=== PATIENT | male | born 1960 | race Caucasian/White ===

== ENCOUNTER → 2017-02-18 | Outpatient (REF) | payer MEDICARE ==
[2017-02-18 20:30] LABS: ALBUMIN 3.5 GM/DL (3.2-5.2); ALBUMIN/GLOBULIN RATIO 1.21 (1.00-1.93); ALKALINE PHOSPHATASE 94 U/L (45-117); ALT/SGPT 35 U/L (12-78); ANION GAP 6 MEQ/L (8-16); AST/SGOT 13 U/L (15-37); BILIRUBIN,TOTAL 0.3 MG/DL (0.2-1.0); BLOOD UREA NITROGEN 23 MG/DL (7-18); CALCIUM LEVEL 8.6 MG/DL (8.5-10.1); CARBON DIOXIDE LEVEL 31 MEQ/L (21-32); CHLORIDE LEVEL 103 MEQ/L (98-107); CREATININE FOR GFR 1.12 MG/DL (0.70-1.30); GLOMERULAR FILTRATION RATE > 60.0 (>56); GLUCOSE, FASTING 187 MG/DL (70-105); POTASSIUM SERUM 4.1 MEQ/L (3.5-5.1); SODIUM LEVEL 140 MEQ/L (136-145); TOTAL PROTEIN 6.4 GM/DL (6.4-8.2)
== END ==
LOC: M LABWUC 19:58
PROVIDERS: ATTEND Nurse Practitioner Family
DX: E11.9 Type 2 diabetes mellitus without complications (principal)

== ENCOUNTER → 2017-09-04 | Outpatient (CLI) | payer MEDICARE ==
[2017-09-04 10:44] LABS: ALBUMIN 3.4 GM/DL (3.2-5.2); ALBUMIN/GLOBULIN RATIO 1.26 (1.00-1.93); ALKALINE PHOSPHATASE 96 U/L (45-117); ALT/SGPT 42 U/L (12-78); ANION GAP 7 MEQ/L (8-16); AST/SGOT 16 U/L (7-37); BILIRUBIN,TOTAL 0.5 MG/DL (0.2-1.0); BLOOD UREA NITROGEN 15 MG/DL (7-18); CALCIUM LEVEL 8.4 MG/DL (8.5-10.1); CARBON DIOXIDE LEVEL 33 MEQ/L (21-32); CHLORIDE LEVEL 99 MEQ/L (98-107); CHOLESTEROL LEVEL 168 MG/DL (<200); GLOMERULAR FILTRATION RATE > 60.0 (>56); GLUCOSE, FASTING 231 MG/DL (70-105); POTASSIUM SERUM 4.3 MEQ/L (3.5-5.1); SODIUM LEVEL 139 MEQ/L (136-145); TOTAL PROTEIN 6.1 GM/DL (6.4-8.2); TRIGLYCERIDES LEVEL 129 MG/DL (<150)
== END ==
LOC: M WUC 08:16
PROVIDERS: ATTEND Nurse Practitioner Family
DX: E11.9 Type 2 diabetes mellitus without complications (principal); I10 Essential (primary) hypertension

== ENCOUNTER 2018-05-10 06:17 | Inpatient (IN) | payer MEDICARE ==
[2018-05-10] MEDS: niCARdipine IV 40 MG in APPROPRIATE DILUENT 1 EA IV ×4 (06:51→23:10)
[2018-05-10 06:57] LABS: BASO % 0.4 % (0.0-1.0); EOS # 0.3 10^3/uL (0.0-0.50); HEMOGLOBIN 15.2 g/dl (13.5-17.5); IMMATURE GRANULOCYTE % 0.6 % (0-3.0); LYMPH # 1.3 10^3/uL (1.5-4.5); LYMPH % 12.6 % (24.0-44.0); MEAN CORPUSCULAR HEMOGLOBIN 26.1 pg (27.0-33.0); MEAN CORPUSCULAR VOLUME 78.9 fl (80.0-96.0); MONO # 0.7 10^3/uL (0.0-0.8); MONO % 7.1 % (0.0-5.0); NEUTROPHILS # 7.7 10^3/uL (1.8-7.7); NEUTROPHILS % 76.3 % (36.0-66.0); PLATELET COUNT, AUTOMATED 200 10^3/uL (150-450); RED BLOOD COUNT 5.83 10^6/uL (4.30-6.10); RED CELL DISTRIBUTION WIDTH 13.7 % (11.5-14.5); WHITE BLOOD COUNT 10.1 10^3/uL (4.0-10.0)
[2018-05-10 07:16] LABS: PROTHROMBIN TIME 12.2 SECONDS (12.1-14.4)
[2018-05-10 07:17] LABS: PARTIAL THROMBOPLASTIN TIME 28.2 SECONDS (25.4-37.6)
[2018-05-10 07:19] LABS: ANION GAP 8 MEQ/L (8-16); BLOOD UREA NITROGEN 28 MG/DL (7-18); CALCIUM LEVEL 9.3 MG/DL (8.5-10.1); CARBON DIOXIDE LEVEL 29 MEQ/L (21-32); CHLORIDE LEVEL 102 MEQ/L (98-107); CK-MB VALUE MASS 2.1 NG/ML (<3.6); CPK CREATINE PHOSPHOKINASE 109 U/L (39-308); CREATININE FOR GFR 1.17 MG/DL (0.70-1.30); GLOMERULAR FILTRATION RATE > 60.0 (>56); GLUCOSE, FASTING 282 MG/DL (70-100); MB/CK RELATIVE INDEX 1.92 (< OR =4); POTASSIUM SERUM 4.1 MEQ/L (3.5-5.1); SODIUM LEVEL 139 MEQ/L (136-145); TROPONIN I < 0.02 NG/ML (< 0.10)
[2018-05-10] MEDS ORDERED: ISOVUE-370 76% 100ML VIAL (Q9967) As Ordered (07:20)
[2018-05-10 11:35] LABS: COLLAGEN EPINEPHRINE 213 SECONDS (74-162)
[2018-05-10 11:39] LABS: COLLAGEN ADP 84 SECONDS (56-103)
[2018-05-10] MEDS: HumaLOG INSULIN (NovoLOG) PER UNIT SC ×2 (12:00→17:42)
[2018-05-10] MEDS ORDERED: ONDANSETRON 4MG/2ML VIAL (J2405) IV (12:00)
[2018-05-10] MEDS ORDERED: ACETAMINOPHEN TAB 650MG DOSE (2X325MG) PO (12:00)
[2018-05-10] MEDS ORDERED: GLUCAGON FOR INJ 1 MG VIAL (J1610) SC (12:15)
[2018-05-10] MEDS ORDERED: GLUCOSE 4 GM CHEW TABLET PO (12:15)
[2018-05-10] MEDS ORDERED: DEXTROSE 50% 50 ML SYRINGE IV (12:15)
[2018-05-10 13:16] LABS: CHOLESTEROL LEVEL 252 MG/DL (<200); HDL CHOLESTEROL 37 MG/DL (>40); LDL CHOLESTEROL 163.6 MG/DL (<100); NON-HDL-C 215 MG/DL; TRIGLYCERIDES LEVEL 257 MG/DL (<150)
[2018-05-10 14:18] LABS: ESTIMATED AVERAGE GLUCOSE 237 MG/DL (60-110); HEMOGLOBIN A1c 9.9 %
[2018-05-10] MEDS: ATORVASTATIN 20 MG TAB PO (16:10)
[2018-05-10] MEDS: CLOPIDOGREL 75 MG TAB PO (16:10)
[2018-05-10 17:38] LABS: BEDSIDE GLUCOSE 239 MG/DL (70-105)
[2018-05-10] MEDS: amLODIPine 10 MG TAB PO (17:43)
[2018-05-10 23:28] LABS: BEDSIDE GLUCOSE 195 MG/DL (70-105)
[2018-05-11 05:05] LABS: HEMATOCRIT 47.1 % (42.0-52.0); HEMOGLOBIN 15.3 g/dl (13.5-17.5); MEAN CORPUSCULAR HEMOGLOBIN 25.9 pg (27.0-33.0); MEAN CORPUSCULAR HGB CONC 32.5 g/dl (32.0-36.5); MEAN CORPUSCULAR VOLUME 79.7 fl (80.0-96.0); PLATELET COUNT, AUTOMATED 205 10^3/uL (150-450); RED BLOOD COUNT 5.91 10^6/uL (4.30-6.10); WHITE BLOOD COUNT 9.4 10^3/uL (4.0-10.0)
[2018-05-11 05:22] LABS: ALBUMIN 3.2 GM/DL (3.2-5.2); ALKALINE PHOSPHATASE 106 U/L (45-117); ALT/SGPT 23 U/L (12-78); ANION GAP 8 MEQ/L (8-16); AST/SGOT 16 U/L (7-37); BILIRUBIN,TOTAL 0.6 MG/DL (0.2-1.0); BLOOD UREA NITROGEN 15 MG/DL (7-18); CALCIUM LEVEL 8.4 MG/DL (8.5-10.1); CARBON DIOXIDE LEVEL 29 MEQ/L (21-32); CHLORIDE LEVEL 102 MEQ/L (98-107); CREATININE FOR GFR 0.88 MG/DL (0.70-1.30); GLOMERULAR FILTRATION RATE > 60.0 (>56); GLUCOSE, FASTING 232 MG/DL (70-100); MAGNESIUM LEVEL 1.7 MG/DL (1.8-2.4); POTASSIUM SERUM 3.7 MEQ/L (3.5-5.1); SODIUM LEVEL 139 MEQ/L (136-145); TOTAL PROTEIN 7.2 GM/DL (6.4-8.2)
[2018-05-11] MEDS: HumaLOG INSULIN (NovoLOG) PER UNIT SC ×5 (06:11→21:10)
[2018-05-11] MEDS: niCARdipine IV 40 MG in APPROPRIATE DILUENT 1 EA IV (08:33)
[2018-05-11] MEDS: amLODIPine 10 MG TAB PO (08:54)
[2018-05-11] MEDS: ATORVASTATIN 20 MG TAB PO (08:54)
[2018-05-11] MEDS: VALSARTAN 40MG TABLET (DIOVAN) PO (08:54)
[2018-05-11] MEDS: CLOPIDOGREL 75 MG TAB PO (08:54)
[2018-05-11 12:48] LABS: BEDSIDE GLUCOSE 222 MG/DL (70-105)
[2018-05-11] MEDS: hydrALAZINE INJ 20 MG/ML VIAL IV ×2 (12:59→17:17)
[2018-05-11 17:11] LABS: BEDSIDE GLUCOSE 183 MG/DL (70-105)
[2018-05-11 21:06] LABS: BEDSIDE GLUCOSE 297 MG/DL (70-105)
[2018-05-11] MEDS: LEVEMIR (INSULIN DETEMIR) 1 UNITS/0.01ML SC (21:09)
[2018-05-11] MEDS: NICOTINE 14 MG/24 HR TRANSDERMAL TD (21:10)
[2018-05-12] MEDS: hydrALAZINE INJ 20 MG/ML VIAL IV ×3 (00:16→12:10)
[2018-05-12 05:50] LABS: ALBUMIN 3.5 GM/DL (3.2-5.2); ALBUMIN/GLOBULIN RATIO 0.83 (1.00-1.93); ALKALINE PHOSPHATASE 114 U/L (45-117); ALT/SGPT 24 U/L (12-78); ANION GAP 8 MEQ/L (8-16); AST/SGOT 20 U/L (7-37); BILIRUBIN,TOTAL 0.6 MG/DL (0.2-1.0); BLOOD UREA NITROGEN 12 MG/DL (7-18); CALCIUM LEVEL 9.1 MG/DL (8.5-10.1); CARBON DIOXIDE LEVEL 28 MEQ/L (21-32); CHLORIDE LEVEL 103 MEQ/L (98-107); CREATININE FOR GFR 1.04 MG/DL (0.70-1.30); GLOMERULAR FILTRATION RATE > 60.0 (>56); GLUCOSE, FASTING 225 MG/DL (70-100); SODIUM LEVEL 139 MEQ/L (136-145); TOTAL PROTEIN 7.7 GM/DL (6.4-8.2)
[2018-05-12 06:15] LABS: HEMATOCRIT 50.6 % (42.0-52.0); HEMOGLOBIN 16.1 g/dl (13.5-17.5); MEAN CORPUSCULAR HEMOGLOBIN 25.6 pg (27.0-33.0); MEAN CORPUSCULAR HGB CONC 31.8 g/dl (32.0-36.5); MEAN CORPUSCULAR VOLUME 80.6 fl (80.0-96.0); PLATELET COUNT, AUTOMATED 243 10^3/uL (150-450); RED BLOOD COUNT 6.28 10^6/uL (4.30-6.10); RED CELL DISTRIBUTION WIDTH 14.7 % (11.5-14.5); WHITE BLOOD COUNT 9.7 10^3/uL (4.0-10.0)
[2018-05-12] MEDS: HumaLOG INSULIN (NovoLOG) PER UNIT SC ×4 (08:00→21:00)
[2018-05-12] MEDS: ATORVASTATIN 20 MG TAB PO (08:49)
[2018-05-12] MEDS: CLOPIDOGREL 75 MG TAB PO (08:49)
[2018-05-12] MEDS: amLODIPine 10 MG TAB PO (08:50)
[2018-05-12] MEDS: ASPIRIN 81 MG ENTERIC TAB PO (08:50)
[2018-05-12] MEDS: VALSARTAN 40MG TABLET (DIOVAN) PO (11:44)
[2018-05-12 11:53] LABS: BEDSIDE GLUCOSE 215 MG/DL (70-105)
[2018-05-12] MEDS: LABETALOL HCL 100 MG/20 ML VIAL IV (12:15)
[2018-05-12 18:02] LABS: BEDSIDE GLUCOSE 271 MG/DL (70-105)
[2018-05-12] MEDS: **hydrALAZINE HCL** 25 MG TAB PO (18:10)
[2018-05-12 20:56] LABS: BEDSIDE GLUCOSE 194 MG/DL (70-105)
[2018-05-12] MEDS: LEVEMIR (INSULIN DETEMIR) 1 UNITS/0.01ML SC (22:00)
[2018-05-12] MEDS: NICOTINE 14 MG/24 HR TRANSDERMAL TD (22:00)
[2018-05-12] MEDS: LABETALOL 100 MG TAB PO (22:01)
[2018-05-13] MEDS: **hydrALAZINE HCL** 25 MG TAB PO ×4 (01:01→17:57)
[2018-05-13] MEDS: LABETALOL 100 MG TAB PO ×3 (06:03→21:28)
[2018-05-13 06:30] LABS: HEMATOCRIT 46.3 % (42.0-52.0); HEMOGLOBIN 14.6 g/dl (13.5-17.5); MEAN CORPUSCULAR HEMOGLOBIN 25.6 pg (27.0-33.0); MEAN CORPUSCULAR HGB CONC 31.5 g/dl (32.0-36.5); MEAN CORPUSCULAR VOLUME 81.2 fl (80.0-96.0); PLATELET COUNT, AUTOMATED 202 10^3/uL (150-450); RED CELL DISTRIBUTION WIDTH 14.7 % (11.5-14.5); WHITE BLOOD COUNT 8.8 10^3/uL (4.0-10.0)
[2018-05-13 06:44] LABS: ALBUMIN/GLOBULIN RATIO 0.86 (1.00-1.93); ALKALINE PHOSPHATASE 102 U/L (45-117); ALT/SGPT 21 U/L (12-78); ANION GAP 7 MEQ/L (8-16); AST/SGOT 13 U/L (7-37); BILIRUBIN,TOTAL 0.5 MG/DL (0.2-1.0); BLOOD UREA NITROGEN 11 MG/DL (7-18); CALCIUM LEVEL 8.6 MG/DL (8.5-10.1); CARBON DIOXIDE LEVEL 30 MEQ/L (21-32); CHLORIDE LEVEL 103 MEQ/L (98-107); CREATININE FOR GFR 0.91 MG/DL (0.70-1.30); GLOMERULAR FILTRATION RATE > 60.0 (>56); GLUCOSE, FASTING 204 MG/DL (70-100); POTASSIUM SERUM 3.8 MEQ/L (3.5-5.1); SODIUM LEVEL 140 MEQ/L (136-145); TOTAL PROTEIN 6.5 GM/DL (6.4-8.2)
[2018-05-13] MEDS: HumaLOG INSULIN (NovoLOG) PER UNIT SC ×4 (08:19→21:00)
[2018-05-13] MEDS: ASPIRIN 81 MG ENTERIC TAB PO (08:45)
[2018-05-13] MEDS: CLOPIDOGREL 75 MG TAB PO (08:45)
[2018-05-13] MEDS: amLODIPine 10 MG TAB PO (08:45)
[2018-05-13] MEDS: VALSARTAN 40MG TABLET (DIOVAN) PO ×2 (08:46→14:51)
[2018-05-13] MEDS: ATORVASTATIN 20 MG TAB PO (08:46)
[2018-05-13 11:30] LABS: BEDSIDE GLUCOSE 236 MG/DL (70-105)
[2018-05-13 17:15] LABS: BEDSIDE GLUCOSE 185 MG/DL (70-105)
[2018-05-13 21:21] LABS: BEDSIDE GLUCOSE 161 MG/DL (70-105)
[2018-05-13] MEDS: NICOTINE 14 MG/24 HR TRANSDERMAL TD (21:28)
[2018-05-13] MEDS: LEVEMIR (INSULIN DETEMIR) 1 UNITS/0.01ML SC (21:29)
[2018-05-14] MEDS: **hydrALAZINE HCL** 25 MG TAB PO ×4 (01:08→19:39)
[2018-05-14 05:47] LABS: HEMATOCRIT 46.4 % (42.0-52.0); HEMOGLOBIN 14.8 g/dl (13.5-17.5); MEAN CORPUSCULAR HEMOGLOBIN 25.7 pg (27.0-33.0); MEAN CORPUSCULAR HGB CONC 31.9 g/dl (32.0-36.5); MEAN CORPUSCULAR VOLUME 80.7 fl (80.0-96.0); PLATELET COUNT, AUTOMATED 189 10^3/uL (150-450); RED BLOOD COUNT 5.75 10^6/uL (4.30-6.10); RED CELL DISTRIBUTION WIDTH 14.9 % (11.5-14.5); WHITE BLOOD COUNT 7.5 10^3/uL (4.0-10.0)
[2018-05-14] MEDS: LABETALOL 100 MG TAB PO ×3 (05:56→21:47)
[2018-05-14 06:09] LABS: ALBUMIN 3.2 GM/DL (3.2-5.2); ALKALINE PHOSPHATASE 110 U/L (45-117); ALT/SGPT 28 U/L (12-78); ANION GAP 6 MEQ/L (8-16); AST/SGOT 19 U/L (7-37); BILIRUBIN,TOTAL 0.7 MG/DL (0.2-1.0); BLOOD UREA NITROGEN 11 MG/DL (7-18); CALCIUM LEVEL 8.8 MG/DL (8.5-10.1); CARBON DIOXIDE LEVEL 31 MEQ/L (21-32); CHLORIDE LEVEL 103 MEQ/L (98-107); CREATININE FOR GFR 0.93 MG/DL (0.70-1.30); GLOMERULAR FILTRATION RATE > 60.0 (>56); GLUCOSE, FASTING 189 MG/DL (70-100); POTASSIUM SERUM 3.9 MEQ/L (3.5-5.1); SODIUM LEVEL 140 MEQ/L (136-145); TOTAL PROTEIN 7.2 GM/DL (6.4-8.2)
[2018-05-14] MEDS: CLOPIDOGREL 75 MG TAB PO (08:27)
[2018-05-14] MEDS: ASPIRIN 81 MG ENTERIC TAB PO (08:27)
[2018-05-14] MEDS: ATORVASTATIN 20 MG TAB PO (08:27)
[2018-05-14] MEDS: HumaLOG INSULIN (NovoLOG) PER UNIT SC ×4 (08:28→21:39)
[2018-05-14] MEDS: amLODIPine 10 MG TAB PO (08:28)
[2018-05-14] MEDS: VALSARTAN 80 MG TAB (DIOVAN) PO (08:29)
[2018-05-14 11:41] LABS: BEDSIDE GLUCOSE 206 MG/DL (70-105)
[2018-05-14 16:44] LABS: BEDSIDE GLUCOSE 238 MG/DL (70-105)
[2018-05-14 21:27] LABS: BEDSIDE GLUCOSE 202 MG/DL (70-105)
[2018-05-14] MEDS: HEPARIN SOD (PORCINE) 5000 UNITS/ML VIAL SQ (21:46)
[2018-05-14] MEDS: NICOTINE 14 MG/24 HR TRANSDERMAL TD (21:47)
[2018-05-14] MEDS: LEVEMIR (INSULIN DETEMIR) 1 UNITS/0.01ML SC (21:47)
[2018-05-14] MEDS ORDERED: PILL CRUSHER/CUTTER 1 EACH XX (22:30)
[2018-05-15] MEDS: **hydrALAZINE HCL** 25 MG TAB PO ×3 (04:42→19:38)
[2018-05-15 05:21] LABS: HEMATOCRIT 46.9 % (42.0-52.0); HEMOGLOBIN 14.7 g/dl (13.5-17.5); MEAN CORPUSCULAR HEMOGLOBIN 25.7 pg (27.0-33.0); MEAN CORPUSCULAR HGB CONC 31.3 g/dl (32.0-36.5); MEAN CORPUSCULAR VOLUME 81.8 fl (80.0-96.0); PLATELET COUNT, AUTOMATED 178 10^3/uL (150-450); RED BLOOD COUNT 5.73 10^6/uL (4.30-6.10); RED CELL DISTRIBUTION WIDTH 14.6 % (11.5-14.5); WHITE BLOOD COUNT 6.8 10^3/uL (4.0-10.0)
[2018-05-15 05:40] LABS: ALBUMIN 3.2 GM/DL (3.2-5.2); ALBUMIN/GLOBULIN RATIO 0.84 (1.00-1.93); ALKALINE PHOSPHATASE 104 U/L (45-117); ALT/SGPT 29 U/L (12-78); ANION GAP 7 MEQ/L (8-16); AST/SGOT 18 U/L (7-37); BILIRUBIN,TOTAL 0.6 MG/DL (0.2-1.0); BLOOD UREA NITROGEN 14 MG/DL (7-18); CALCIUM LEVEL 8.9 MG/DL (8.5-10.1); CARBON DIOXIDE LEVEL 31 MEQ/L (21-32); CHLORIDE LEVEL 102 MEQ/L (98-107); GLOMERULAR FILTRATION RATE > 60.0 (>56); GLUCOSE, FASTING 177 MG/DL (70-100); MAGNESIUM LEVEL 1.9 MG/DL (1.8-2.4); POTASSIUM SERUM 3.7 MEQ/L (3.5-5.1); SODIUM LEVEL 140 MEQ/L (136-145)
[2018-05-15] MEDS: HEPARIN SOD (PORCINE) 5000 UNITS/ML VIAL SQ ×3 (06:32→21:12)
[2018-05-15] MEDS: LABETALOL 100 MG TAB PO ×3 (06:32→21:12)
[2018-05-15] MEDS: HumaLOG INSULIN (NovoLOG) PER UNIT SC ×4 (09:06→21:04)
[2018-05-15] MEDS: ASPIRIN 81 MG ENTERIC TAB PO (09:06)
[2018-05-15] MEDS: ATORVASTATIN 20 MG TAB PO (09:07)
[2018-05-15] MEDS: CLOPIDOGREL 75 MG TAB PO (09:07)
[2018-05-15] MEDS: VALSARTAN 80 MG TAB (DIOVAN) PO (09:08)
[2018-05-15] MEDS: amLODIPine 10 MG TAB PO (09:08)
[2018-05-15 11:43] LABS: BEDSIDE GLUCOSE 195 MG/DL (70-105)
[2018-05-15 17:19] LABS: BEDSIDE GLUCOSE 186 MG/DL (70-105)
[2018-05-15 21:12] LABS: BEDSIDE GLUCOSE 220 MG/DL (70-105)
[2018-05-15] MEDS: LEVEMIR (INSULIN DETEMIR) 1 UNITS/0.01ML SC (21:13)
[2018-05-15] MEDS: NICOTINE 14 MG/24 HR TRANSDERMAL TD (21:13)
[2018-05-16] MEDS: **hydrALAZINE HCL** 25 MG TAB PO ×3 (04:07→21:08)
[2018-05-16 06:01] LABS: HEMATOCRIT 44.3 % (42.0-52.0); MEAN CORPUSCULAR HGB CONC 31.6 g/dl (32.0-36.5); MEAN CORPUSCULAR VOLUME 82.3 fl (80.0-96.0); PLATELET COUNT, AUTOMATED 176 10^3/uL (150-450); RED BLOOD COUNT 5.38 10^6/uL (4.30-6.10); RED CELL DISTRIBUTION WIDTH 14.6 % (11.5-14.5); WHITE BLOOD COUNT 6.3 10^3/uL (4.0-10.0)
[2018-05-16] MEDS: LABETALOL 100 MG TAB PO ×3 (06:07→23:05)
[2018-05-16] MEDS: HEPARIN SOD (PORCINE) 5000 UNITS/ML VIAL SQ ×3 (06:08→23:05)
[2018-05-16 06:27] LABS: ALBUMIN 3.1 GM/DL (3.2-5.2); ALBUMIN/GLOBULIN RATIO 0.84 (1.00-1.93); ALKALINE PHOSPHATASE 102 U/L (45-117); ALT/SGPT 32 U/L (12-78); ANION GAP 7 MEQ/L (8-16); AST/SGOT 21 U/L (7-37); BILIRUBIN,TOTAL 0.5 MG/DL (0.2-1.0); BLOOD UREA NITROGEN 16 MG/DL (7-18); CARBON DIOXIDE LEVEL 32 MEQ/L (21-32); CHLORIDE LEVEL 103 MEQ/L (98-107); CREATININE FOR GFR 1.02 MG/DL (0.70-1.30); GLOMERULAR FILTRATION RATE > 60.0 (>56); GLUCOSE, FASTING 164 MG/DL (70-100); POTASSIUM SERUM 3.9 MEQ/L (3.5-5.1); SODIUM LEVEL 142 MEQ/L (136-145); TOTAL PROTEIN 6.8 GM/DL (6.4-8.2)
[2018-05-16] MEDS: amLODIPine 10 MG TAB PO (08:28)
[2018-05-16] MEDS: VALSARTAN 80 MG TAB (DIOVAN) PO (08:28)
[2018-05-16] MEDS: ASPIRIN 81 MG ENTERIC TAB PO (08:28)
[2018-05-16] MEDS: ATORVASTATIN 20 MG TAB PO (08:28)
[2018-05-16] MEDS: CLOPIDOGREL 75 MG TAB PO (08:28)
[2018-05-16] MEDS: HumaLOG INSULIN (NovoLOG) PER UNIT SC ×4 (08:30→21:08)
[2018-05-16 11:57] LABS: BEDSIDE GLUCOSE 142 MG/DL (70-105)
[2018-05-16 18:02] LABS: BEDSIDE GLUCOSE 163 MG/DL (70-105)
[2018-05-16 20:56] LABS: BEDSIDE GLUCOSE 145 MG/DL (70-105)
[2018-05-16] MEDS: LEVEMIR (INSULIN DETEMIR) 1 UNITS/0.01ML SC (21:09)
[2018-05-16] MEDS: NICOTINE 14 MG/24 HR TRANSDERMAL TD (21:10)
[2018-05-17] MEDS: **hydrALAZINE HCL** 25 MG TAB PO ×2 (04:24→12:24)
[2018-05-17 05:37] LABS: HEMATOCRIT 41.4 % (42.0-52.0); HEMOGLOBIN 13.5 g/dl (13.5-17.5); MEAN CORPUSCULAR HEMOGLOBIN 26.3 pg (27.0-33.0); MEAN CORPUSCULAR HGB CONC 32.6 g/dl (32.0-36.5); MEAN CORPUSCULAR VOLUME 80.5 fl (80.0-96.0); PLATELET COUNT, AUTOMATED 181 10^3/uL (150-450); RED BLOOD COUNT 5.14 10^6/uL (4.30-6.10); RED CELL DISTRIBUTION WIDTH 14.6 % (11.5-14.5); WHITE BLOOD COUNT 5.8 10^3/uL (4.0-10.0)
[2018-05-17 05:55] LABS: ALBUMIN 2.9 GM/DL (3.2-5.2); ALBUMIN/GLOBULIN RATIO 0.83 (1.00-1.93); ALKALINE PHOSPHATASE 95 U/L (45-117); ALT/SGPT 35 U/L (12-78); ANION GAP 6 MEQ/L (8-16); AST/SGOT 29 U/L (7-37); BILIRUBIN,TOTAL 0.5 MG/DL (0.2-1.0); BLOOD UREA NITROGEN 12 MG/DL (7-18); CALCIUM LEVEL 8.5 MG/DL (8.5-10.1); CARBON DIOXIDE LEVEL 29 MEQ/L (21-32); CHLORIDE LEVEL 106 MEQ/L (98-107); CREATININE FOR GFR 0.84 MG/DL (0.70-1.30); GLOMERULAR FILTRATION RATE > 60.0 (>56); GLUCOSE, FASTING 141 MG/DL (70-100); MAGNESIUM LEVEL 1.9 MG/DL (1.8-2.4); POTASSIUM SERUM 3.6 MEQ/L (3.5-5.1); SODIUM LEVEL 141 MEQ/L (136-145); TOTAL PROTEIN 6.4 GM/DL (6.4-8.2)
[2018-05-17] MEDS: LABETALOL 100 MG TAB PO (05:56)
[2018-05-17] MEDS: HEPARIN SOD (PORCINE) 5000 UNITS/ML VIAL SQ (05:57)
[2018-05-17 09:14] LABS: BEDSIDE GLUCOSE 154 MG/DL (70-105)
[2018-05-17] MEDS: ATORVASTATIN 20 MG TAB PO (09:52)
[2018-05-17] MEDS: VALSARTAN 80 MG TAB (DIOVAN) PO (09:52)
[2018-05-17] MEDS: ASPIRIN 81 MG ENTERIC TAB PO (09:53)
[2018-05-17] MEDS: CLOPIDOGREL 75 MG TAB PO (09:53)
[2018-05-17] MEDS: amLODIPine 10 MG TAB PO (09:53)
[2018-05-17] MEDS: HumaLOG INSULIN (NovoLOG) PER UNIT SC ×2 (09:54→12:24)
[2018-05-17 11:53] LABS: BEDSIDE GLUCOSE 154 MG/DL (70-105)
== END 2018-05-17 13:47 | DRG 65 ==
LOC: M MSPAV 05-12 15:11 → M ED 06:17 → M ED INP 11:56 → M ICU 15:18
DX: I63.9 Cerebral infarction, unspecified (principal); I69.351 Hemiplegia and hemiparesis following cerebral infarction affecting right dominant side; Z68.41 Body mass index [BMI] 40.0-44.9, adult; I65.02 Occlusion and stenosis of left vertebral artery; E66.01 Morbid (severe) obesity due to excess calories; I10 Essential (primary) hypertension; E11.9 Type 2 diabetes mellitus without complications; M10.9 Gout, unspecified; Z79.82 Long term (current) use of aspirin; Z79.899 Other long term (current) drug therapy; Z87.891 Personal history of nicotine dependence; E78.5 Hyperlipidemia, unspecified

== ENCOUNTER 2018-05-17 13:50 | Inpatient (IN) | payer MEDICARE ==
[~2018-05-17 13:50] MED LIST: ACETAMINOPHEN TAB 650MG DOSE (2X325MG) PO; BISACODYL 10 MG SUPP PR; FLEET ENEMA PR; MAALOX 30 ML SUSP *UDC PO; MIRALAX *UNIT DOSE* 17GM PACKET PO; MOM 30ML SUSPENSION UDC PO; ONDANSETRON 4 MG TAB (S0181) PO; ONDANSETRON 4MG/2ML VIAL (J2405) IM; SIMETHICONE 80 MG CHEW TAB PO
[2018-05-17] MEDS: LABETALOL 100 MG TAB PO ×3 (14:00→21:51)
[2018-05-17] MEDS ORDERED: DEXTROSE 50% 50 ML SYRINGE IV (14:45)
[2018-05-17] MEDS ORDERED: GLUCOSE 4 GM CHEW TABLET PO (14:45)
[2018-05-17] MEDS ORDERED: GLUCAGON FOR INJ 1 MG VIAL (J1610) SC (14:45)
[2018-05-17] MEDS ORDERED: PILL CRUSHER/CUTTER 1 EACH XX (15:15)
[2018-05-17] MEDS: HEPARIN SOD (PORCINE) 5000 UNITS/ML VIAL SQ ×2 (15:59→21:50)
[2018-05-17 16:48] LABS: BEDSIDE GLUCOSE 144 MG/DL (70-105)
[2018-05-17] MEDS: HumaLOG INSULIN (NovoLOG) PER UNIT SC ×2 (17:27→21:00)
[2018-05-17 21:43] LABS: BEDSIDE GLUCOSE 150 MG/DL (70-105)
[2018-05-17] MEDS: **hydrALAZINE** 50 MG TAB PO (21:51)
[2018-05-17] MEDS: NICOTINE 7 MG/24 HR TRANSDERMAL TD (21:52)
[2018-05-17] MEDS: LEVEMIR (INSULIN DETEMIR) 1 UNITS/0.01ML SC (21:52)
[2018-05-18 06:46] LABS: BEDSIDE GLUCOSE 142 MG/DL (70-105)
[2018-05-18 06:46] LABS: BASO % 0.4 % (0.0-1.0); EOS # 0.3 10^3/uL (0.0-0.50); EOS % 5.3 % (0.0-3.0); HEMATOCRIT 44.5 % (42.0-52.0); HEMOGLOBIN 14.3 g/dl (13.5-17.5); IMMATURE GRANULOCYTE % 0.7 % (0-3.0); LYMPH # 1.4 10^3/uL (1.5-4.5); LYMPH % 24.5 % (24.0-44.0); MEAN CORPUSCULAR HEMOGLOBIN 25.9 pg (27.0-33.0); MEAN CORPUSCULAR HGB CONC 32.1 g/dl (32.0-36.5); MEAN CORPUSCULAR VOLUME 80.5 fl (80.0-96.0); MONO # 0.7 10^3/uL (0.0-0.8); MONO % 12.9 % (0.0-5.0); NEUTROPHILS # 3.2 10^3/uL (1.8-7.7); NEUTROPHILS % 56.2 % (36.0-66.0); PLATELET COUNT, AUTOMATED 176 10^3/uL (150-450); RED BLOOD COUNT 5.53 10^6/uL (4.30-6.10); RED CELL DISTRIBUTION WIDTH 14.3 % (11.5-14.5); WHITE BLOOD COUNT 5.7 10^3/uL (4.0-10.0)
[2018-05-18] MEDS: HEPARIN SOD (PORCINE) 5000 UNITS/ML VIAL SQ ×3 (06:47→21:44)
[2018-05-18] MEDS: LABETALOL 100 MG TAB PO ×3 (06:48→21:47)
[2018-05-18] MEDS: **hydrALAZINE** 50 MG TAB PO ×3 (06:48→21:46)
[2018-05-18 07:09] LABS: ALBUMIN 3.1 GM/DL (3.2-5.2); ALBUMIN/GLOBULIN RATIO 0.86 (1.00-1.93); ALKALINE PHOSPHATASE 101 U/L (45-117); ALT/SGPT 74 U/L (12-78); ANION GAP 9 MEQ/L (8-16); AST/SGOT 75 U/L (7-37); BILIRUBIN,TOTAL 0.6 MG/DL (0.2-1.0); BLOOD UREA NITROGEN 13 MG/DL (7-18); CALCIUM LEVEL 8.8 MG/DL (8.5-10.1); CARBON DIOXIDE LEVEL 30 MEQ/L (21-32); CHLORIDE LEVEL 103 MEQ/L (98-107); CREATININE FOR GFR 0.86 MG/DL (0.70-1.30); GLOMERULAR FILTRATION RATE > 60.0 (>56); GLUCOSE, FASTING 145 MG/DL (70-100); POTASSIUM SERUM 3.5 MEQ/L (3.5-5.1); SODIUM LEVEL 142 MEQ/L (136-145); TOTAL PROTEIN 6.7 GM/DL (6.4-8.2)
[2018-05-18] MEDS: VALSARTAN 80 MG TAB (DIOVAN) PO (09:31)
[2018-05-18] MEDS: ASPIRIN 81 MG ENTERIC TAB PO (09:32)
[2018-05-18] MEDS: amLODIPine 10 MG TAB PO (09:32)
[2018-05-18] MEDS: ATORVASTATIN 20 MG TAB PO (09:32)
[2018-05-18] MEDS: HumaLOG INSULIN (NovoLOG) PER UNIT SC ×4 (09:32→21:00)
[2018-05-18] MEDS: CLOPIDOGREL 75 MG TAB PO (09:32)
[2018-05-18] MEDS: BISACODYL 5 MG TAB PO (12:32)
[2018-05-18] MEDS: MIRALAX *UNIT DOSE* 17GM PACKET PO (12:32)
[2018-05-18 12:33] LABS: BEDSIDE GLUCOSE 177 MG/DL (70-105)
[2018-05-18] MEDS: FLUoxetine 20 MG CAP PO (12:35)
[2018-05-18] MEDS: cloNIDine 0.1 MG TAB PO ×2 (13:54→21:46)
[2018-05-18 16:42] LABS: BEDSIDE GLUCOSE 164 MG/DL (70-105)
[2018-05-18 19:37] LABS: BEDSIDE GLUCOSE 137 MG/DL (70-105)
[2018-05-18] MEDS: SENNA 8.6 MG TAB (SENOKOT) PO (21:44)
[2018-05-18] MEDS: NICOTINE 7 MG/24 HR TRANSDERMAL TD (21:44)
[2018-05-18] MEDS: LEVEMIR (INSULIN DETEMIR) 1 UNITS/0.01ML SC (21:44)
[2018-05-19 05:49] LABS: BEDSIDE GLUCOSE 137 MG/DL (70-105)
[2018-05-19] MEDS: LABETALOL 100 MG TAB PO ×3 (05:53→21:04)
[2018-05-19] MEDS: HEPARIN SOD (PORCINE) 5000 UNITS/ML VIAL SQ ×3 (05:53→21:06)
[2018-05-19] MEDS: **hydrALAZINE** 50 MG TAB PO ×3 (05:53→21:02)
[2018-05-19] MEDS: FLUoxetine 20 MG CAP PO (08:48)
[2018-05-19] MEDS: CLOPIDOGREL 75 MG TAB PO (08:48)
[2018-05-19] MEDS: ATORVASTATIN 20 MG TAB PO (08:48)
[2018-05-19] MEDS: HumaLOG INSULIN (NovoLOG) PER UNIT SC ×4 (08:48→21:27)
[2018-05-19] MEDS: amLODIPine 10 MG TAB PO (08:49)
[2018-05-19] MEDS: ASPIRIN 81 MG ENTERIC TAB PO (08:49)
[2018-05-19] MEDS: VALSARTAN 80 MG TAB (DIOVAN) PO (08:49)
[2018-05-19] MEDS: cloNIDine 0.1 MG TAB PO ×2 (08:49→21:00)
[2018-05-19] MEDS: MIRALAX *UNIT DOSE* 17GM PACKET PO (08:50)
[2018-05-19 12:06] LABS: BEDSIDE GLUCOSE 151 MG/DL (70-105)
[2018-05-19 16:49] LABS: BEDSIDE GLUCOSE 170 MG/DL (70-105)
[2018-05-19 20:50] LABS: BEDSIDE GLUCOSE 151 MG/DL (70-105)
[2018-05-19] MEDS: SENNA 8.6 MG TAB (SENOKOT) PO (21:00)
[2018-05-19] MEDS: LEVEMIR (INSULIN DETEMIR) 1 UNITS/0.01ML SC (21:08)
[2018-05-20 05:38] LABS: BEDSIDE GLUCOSE 117 MG/DL (70-105)
[2018-05-20] MEDS: **hydrALAZINE** 50 MG TAB PO ×3 (05:43→21:27)
[2018-05-20] MEDS: LABETALOL 100 MG TAB PO ×3 (05:43→21:27)
[2018-05-20] MEDS: HEPARIN SOD (PORCINE) 5000 UNITS/ML VIAL SQ ×3 (05:44→21:28)
[2018-05-20 06:39] LABS: HEMATOCRIT 40.6 % (42.0-52.0); HEMOGLOBIN 13.3 g/dl (13.5-17.5); MEAN CORPUSCULAR HEMOGLOBIN 26.4 pg (27.0-33.0); MEAN CORPUSCULAR HGB CONC 32.8 g/dl (32.0-36.5); MEAN CORPUSCULAR VOLUME 80.6 fl (80.0-96.0); PLATELET COUNT, AUTOMATED 167 10^3/uL (150-450); RED BLOOD COUNT 5.04 10^6/uL (4.30-6.10); RED CELL DISTRIBUTION WIDTH 14.6 % (11.5-14.5)
[2018-05-20] MEDS: HumaLOG INSULIN (NovoLOG) PER UNIT SC ×4 (09:54→21:00)
[2018-05-20] MEDS: CLOPIDOGREL 75 MG TAB PO (09:55)
[2018-05-20] MEDS: amLODIPine 10 MG TAB PO (09:55)
[2018-05-20] MEDS: FLUoxetine 20 MG CAP PO (09:55)
[2018-05-20] MEDS: ATORVASTATIN 20 MG TAB PO (09:55)
[2018-05-20] MEDS: cloNIDine 0.1 MG TAB PO ×2 (09:55→21:27)
[2018-05-20] MEDS: VALSARTAN 80 MG TAB (DIOVAN) PO (09:55)
[2018-05-20] MEDS: ASPIRIN 81 MG ENTERIC TAB PO (09:55)
[2018-05-20] MEDS: MIRALAX *UNIT DOSE* 17GM PACKET PO (09:57)
[2018-05-20 11:59] LABS: BEDSIDE GLUCOSE 189 MG/DL (70-105)
[2018-05-20 16:33] LABS: BEDSIDE GLUCOSE 213 MG/DL (70-105)
[2018-05-20 19:58] LABS: BEDSIDE GLUCOSE 182 MG/DL (70-105)
[2018-05-20] MEDS: SENNA 8.6 MG TAB (SENOKOT) PO (21:00)
[2018-05-20] MEDS: LEVEMIR (INSULIN DETEMIR) 1 UNITS/0.01ML SC (21:28)
[2018-05-21 06:18] LABS: BEDSIDE GLUCOSE 138 MG/DL (70-105)
[2018-05-21] MEDS: **hydrALAZINE** 50 MG TAB PO ×3 (06:22→21:55)
[2018-05-21] MEDS: LABETALOL 100 MG TAB PO ×3 (06:22→21:56)
[2018-05-21] MEDS: HEPARIN SOD (PORCINE) 5000 UNITS/ML VIAL SQ ×3 (06:23→21:56)
[2018-05-21] MEDS: amLODIPine 10 MG TAB PO (08:26)
[2018-05-21] MEDS: VALSARTAN 80 MG TAB (DIOVAN) PO (08:26)
[2018-05-21] MEDS: ATORVASTATIN 20 MG TAB PO (08:26)
[2018-05-21] MEDS: ASPIRIN 81 MG ENTERIC TAB PO (08:26)
[2018-05-21] MEDS: cloNIDine 0.1 MG TAB PO ×2 (08:26→21:56)
[2018-05-21] MEDS: CLOPIDOGREL 75 MG TAB PO (08:26)
[2018-05-21] MEDS: FLUoxetine 20 MG CAP PO (08:26)
[2018-05-21] MEDS: HumaLOG INSULIN (NovoLOG) PER UNIT SC ×4 (08:27→21:00)
[2018-05-21] MEDS: MIRALAX *UNIT DOSE* 17GM PACKET PO (08:34)
[2018-05-21 12:19] LABS: BEDSIDE GLUCOSE 175 MG/DL (70-105)
[2018-05-21 16:37] LABS: BEDSIDE GLUCOSE 151 MG/DL (70-105)
[2018-05-21] MEDS: SENNA 8.6 MG TAB (SENOKOT) PO (21:55)
[2018-05-21 21:56] LABS: BEDSIDE GLUCOSE 145 MG/DL (70-105)
[2018-05-21] MEDS: LEVEMIR (INSULIN DETEMIR) 1 UNITS/0.01ML SC (21:57)
[2018-05-22] MEDS: HEPARIN SOD (PORCINE) 5000 UNITS/ML VIAL SQ ×3 (06:30→21:26)
[2018-05-22] MEDS: **hydrALAZINE** 50 MG TAB PO ×3 (06:30→21:24)
[2018-05-22] MEDS: LABETALOL 100 MG TAB PO ×3 (06:30→21:25)
[2018-05-22 06:31] LABS: BEDSIDE GLUCOSE 151 MG/DL (70-105)
[2018-05-22] MEDS: cloNIDine 0.1 MG TAB PO ×2 (08:19→21:25)
[2018-05-22] MEDS: amLODIPine 10 MG TAB PO (08:20)
[2018-05-22] MEDS: FLUoxetine 20 MG CAP PO (08:20)
[2018-05-22] MEDS: CLOPIDOGREL 75 MG TAB PO (08:20)
[2018-05-22] MEDS: VALSARTAN 80 MG TAB (DIOVAN) PO (08:20)
[2018-05-22] MEDS: ATORVASTATIN 20 MG TAB PO (08:20)
[2018-05-22] MEDS: ASPIRIN 81 MG ENTERIC TAB PO (08:20)
[2018-05-22] MEDS: HumaLOG INSULIN (NovoLOG) PER UNIT SC ×4 (08:21→21:00)
[2018-05-22] MEDS: MIRALAX *UNIT DOSE* 17GM PACKET PO (08:21)
[2018-05-22 11:43] LABS: BEDSIDE GLUCOSE 139 MG/DL (70-105)
[2018-05-22 16:08] LABS: BEDSIDE GLUCOSE 138 MG/DL (70-105)
[2018-05-22] MEDS: SENNA 8.6 MG TAB (SENOKOT) PO (21:00)
[2018-05-22 21:26] LABS: BEDSIDE GLUCOSE 141 MG/DL (70-105)
[2018-05-22] MEDS: LEVEMIR (INSULIN DETEMIR) 1 UNITS/0.01ML SC (21:26)
[2018-05-23 06:37] LABS: BEDSIDE GLUCOSE 120 MG/DL (70-105)
[2018-05-23] MEDS: HEPARIN SOD (PORCINE) 5000 UNITS/ML VIAL SQ ×3 (06:37→21:39)
[2018-05-23] MEDS: LABETALOL 100 MG TAB PO ×3 (06:37→21:41)
[2018-05-23] MEDS: **hydrALAZINE** 50 MG TAB PO ×3 (06:37→21:40)
[2018-05-23] MEDS: HumaLOG INSULIN (NovoLOG) PER UNIT SC ×4 (08:36→21:40)
[2018-05-23] MEDS: cloNIDine 0.1 MG TAB PO ×2 (08:36→21:40)
[2018-05-23] MEDS: CLOPIDOGREL 75 MG TAB PO (08:37)
[2018-05-23] MEDS: FLUoxetine 20 MG CAP PO (08:37)
[2018-05-23] MEDS: MIRALAX *UNIT DOSE* 17GM PACKET PO (08:37)
[2018-05-23] MEDS: ATORVASTATIN 20 MG TAB PO (08:37)
[2018-05-23] MEDS: amLODIPine 10 MG TAB PO (08:37)
[2018-05-23] MEDS: VALSARTAN 80 MG TAB (DIOVAN) PO (08:37)
[2018-05-23] MEDS: ASPIRIN 81 MG ENTERIC TAB PO (08:37)
[2018-05-23 11:41] LABS: BEDSIDE GLUCOSE 153 MG/DL (70-105)
[2018-05-23 16:29] LABS: BEDSIDE GLUCOSE 179 MG/DL (70-105)
[2018-05-23 20:45] LABS: BEDSIDE GLUCOSE 280 MG/DL (70-105)
[2018-05-23] MEDS: LEVEMIR (INSULIN DETEMIR) 1 UNITS/0.01ML SC (21:39)
[2018-05-23] MEDS: SENNA 8.6 MG TAB (SENOKOT) PO (21:40)
[2018-05-24] MEDS: **hydrALAZINE** 50 MG TAB PO ×3 (06:05→21:15)
[2018-05-24] MEDS: LABETALOL 100 MG TAB PO ×3 (06:05→21:15)
[2018-05-24] MEDS: HEPARIN SOD (PORCINE) 5000 UNITS/ML VIAL SQ ×3 (06:05→21:16)
[2018-05-24 06:18] LABS: BEDSIDE GLUCOSE 146 MG/DL (70-105)
[2018-05-24 07:40] LABS: BASO % 0.3 % (0.0-1.0); EOS # 0.3 10^3/uL (0.0-0.50); EOS % 4.9 % (0.0-3.0); HEMATOCRIT 41.1 % (42.0-52.0); HEMOGLOBIN 13.1 g/dl (13.5-17.5); IMMATURE GRANULOCYTE % 0.3 % (0-3.0); LYMPH # 1.1 10^3/uL (1.5-4.5); LYMPH % 16.7 % (24.0-44.0); MEAN CORPUSCULAR HEMOGLOBIN 26.4 pg (27.0-33.0); MEAN CORPUSCULAR HGB CONC 31.9 g/dl (32.0-36.5); MEAN CORPUSCULAR VOLUME 82.7 fl (80.0-96.0); MONO % 14.1 % (0.0-5.0); NEUTROPHILS # 4.3 10^3/uL (1.8-7.7); NEUTROPHILS % 63.7 % (36.0-66.0); PLATELET COUNT, AUTOMATED 161 10^3/uL (150-450); RED BLOOD COUNT 4.97 10^6/uL (4.30-6.10); RED CELL DISTRIBUTION WIDTH 14.6 % (11.5-14.5); WHITE BLOOD COUNT 6.8 10^3/uL (4.0-10.0)
[2018-05-24 08:00] LABS: ANION GAP 6 MEQ/L (8-16); BLOOD UREA NITROGEN 14 MG/DL (7-18); CALCIUM LEVEL 8.7 MG/DL (8.5-10.1); CARBON DIOXIDE LEVEL 31 MEQ/L (21-32); CHLORIDE LEVEL 106 MEQ/L (98-107); CREATININE FOR GFR 0.82 MG/DL (0.70-1.30); GLOMERULAR FILTRATION RATE > 60.0 (>56); GLUCOSE, FASTING 156 MG/DL (70-100); MAGNESIUM LEVEL 1.8 MG/DL (1.8-2.4); SODIUM LEVEL 143 MEQ/L (136-145)
[2018-05-24] MEDS: HumaLOG INSULIN (NovoLOG) PER UNIT SC ×5 (08:14→21:00)
[2018-05-24] MEDS: CLOPIDOGREL 75 MG TAB PO (08:15)
[2018-05-24] MEDS: VALSARTAN 80 MG TAB (DIOVAN) PO (08:15)
[2018-05-24] MEDS: ATORVASTATIN 20 MG TAB PO (08:15)
[2018-05-24] MEDS: ASPIRIN 81 MG ENTERIC TAB PO (08:15)
[2018-05-24] MEDS: cloNIDine 0.1 MG TAB PO (08:16)
[2018-05-24] MEDS: MIRALAX *UNIT DOSE* 17GM PACKET PO (08:16)
[2018-05-24] MEDS: FLUoxetine 20 MG CAP PO (08:16)
[2018-05-24] MEDS: amLODIPine 10 MG TAB PO (08:16)
[2018-05-24 12:03] LABS: BEDSIDE GLUCOSE 150 MG/DL (70-105)
[2018-05-24 16:34] LABS: BEDSIDE GLUCOSE 143 MG/DL (70-105)
[2018-05-24 20:29] LABS: BEDSIDE GLUCOSE 131 MG/DL (70-105)
[2018-05-24] MEDS: SENNA 8.6 MG TAB (SENOKOT) PO (21:00)
[2018-05-24] MEDS: cloNIDine 0.2 MG TAB PO (21:15)
[2018-05-24] MEDS: LEVEMIR (INSULIN DETEMIR) 1 UNITS/0.01ML SC (21:16)
[2018-05-25] MEDS: HEPARIN SOD (PORCINE) 5000 UNITS/ML VIAL SQ ×3 (06:47→21:19)
[2018-05-25] MEDS: LABETALOL 100 MG TAB PO ×3 (06:47→21:21)
[2018-05-25] MEDS: **hydrALAZINE** 50 MG TAB PO ×3 (06:48→21:20)
[2018-05-25 06:57] LABS: BEDSIDE GLUCOSE 130 MG/DL (70-105)
[2018-05-25] MEDS: FLUoxetine 20 MG CAP PO (08:31)
[2018-05-25] MEDS: ASPIRIN 81 MG ENTERIC TAB PO (08:31)
[2018-05-25] MEDS: cloNIDine 0.2 MG TAB PO ×2 (08:31→21:20)
[2018-05-25] MEDS: amLODIPine 10 MG TAB PO (08:31)
[2018-05-25] MEDS: CLOPIDOGREL 75 MG TAB PO (08:31)
[2018-05-25] MEDS: HumaLOG INSULIN (NovoLOG) PER UNIT SC ×4 (08:32→21:00)
[2018-05-25] MEDS: VALSARTAN 80 MG TAB (DIOVAN) PO (08:32)
[2018-05-25] MEDS: MIRALAX *UNIT DOSE* 17GM PACKET PO (08:32)
[2018-05-25] MEDS: ATORVASTATIN 20 MG TAB PO (08:32)
[2018-05-25 11:34] LABS: BEDSIDE GLUCOSE 156 MG/DL (70-105)
[2018-05-25 16:17] LABS: BEDSIDE GLUCOSE 180 MG/DL (70-105)
[2018-05-25 19:43] LABS: BEDSIDE GLUCOSE 166 MG/DL (70-105)
[2018-05-25] MEDS: SENNA 8.6 MG TAB (SENOKOT) PO (21:00)
[2018-05-25] MEDS: LEVEMIR (INSULIN DETEMIR) 1 UNITS/0.01ML SC (21:20)
[2018-05-26] MEDS: **hydrALAZINE** 50 MG TAB PO ×3 (06:05→21:31)
[2018-05-26] MEDS: LABETALOL 100 MG TAB PO ×2 (06:05→21:31)
[2018-05-26] MEDS: HEPARIN SOD (PORCINE) 5000 UNITS/ML VIAL SQ ×3 (06:06→21:29)
[2018-05-26 06:25] LABS: BEDSIDE GLUCOSE 149 MG/DL (70-105)
[2018-05-26 06:36] LABS: HEMATOCRIT 40.6 % (42.0-52.0); HEMOGLOBIN 12.8 g/dl (13.5-17.5); MEAN CORPUSCULAR HGB CONC 31.5 g/dl (32.0-36.5); MEAN CORPUSCULAR VOLUME 82.4 fl (80.0-96.0); PLATELET COUNT, AUTOMATED 167 10^3/uL (150-450); RED BLOOD COUNT 4.93 10^6/uL (4.30-6.10); RED CELL DISTRIBUTION WIDTH 14.6 % (11.5-14.5); WHITE BLOOD COUNT 7.4 10^3/uL (4.0-10.0)
[2018-05-26] MEDS: HumaLOG INSULIN (NovoLOG) PER UNIT SC ×4 (07:30→21:00)
[2018-05-26] MEDS: MIRALAX *UNIT DOSE* 17GM PACKET PO ×2 (09:00)
[2018-05-26] MEDS: cloNIDine 0.2 MG TAB PO ×2 (09:48→21:31)
[2018-05-26] MEDS: FLUoxetine 20 MG CAP PO (09:48)
[2018-05-26] MEDS: amLODIPine 10 MG TAB PO (09:48)
[2018-05-26] MEDS: ASPIRIN 81 MG ENTERIC TAB PO (09:48)
[2018-05-26] MEDS: CLOPIDOGREL 75 MG TAB PO (09:49)
[2018-05-26] MEDS: VALSARTAN 80 MG TAB (DIOVAN) PO (09:49)
[2018-05-26] MEDS: ATORVASTATIN 20 MG TAB PO (09:49)
[2018-05-26 11:24] LABS: BEDSIDE GLUCOSE 225 MG/DL (70-105)
[2018-05-26 17:16] LABS: BEDSIDE GLUCOSE 149 MG/DL (70-105)
[2018-05-26 20:11] LABS: BEDSIDE GLUCOSE 134 MG/DL (70-105)
[2018-05-26] MEDS: SENNA 8.6 MG TAB (SENOKOT) PO (21:00)
[2018-05-26] MEDS: LEVEMIR (INSULIN DETEMIR) 1 UNITS/0.01ML SC (21:30)
[2018-05-27] MEDS: HEPARIN SOD (PORCINE) 5000 UNITS/ML VIAL SQ ×3 (06:08→22:00)
[2018-05-27] MEDS: **hydrALAZINE** 50 MG TAB PO ×4 (06:08→22:01)
[2018-05-27 06:19] LABS: BEDSIDE GLUCOSE 154 MG/DL (70-105)
[2018-05-27] MEDS: MIRALAX *UNIT DOSE* 17GM PACKET PO (09:14)
[2018-05-27] MEDS: ATORVASTATIN 20 MG TAB PO (09:14)
[2018-05-27] MEDS: HumaLOG INSULIN (NovoLOG) PER UNIT SC ×4 (09:14→21:00)
[2018-05-27] MEDS: ASPIRIN 81 MG ENTERIC TAB PO (09:14)
[2018-05-27] MEDS: LABETALOL 100 MG TAB PO ×2 (09:15→22:01)
[2018-05-27] MEDS: amLODIPine 10 MG TAB PO (09:15)
[2018-05-27] MEDS: VALSARTAN 80 MG TAB (DIOVAN) PO (09:15)
[2018-05-27] MEDS: FLUoxetine 20 MG CAP PO (09:15)
[2018-05-27] MEDS: CLOPIDOGREL 75 MG TAB PO (09:15)
[2018-05-27] MEDS: cloNIDine 0.2 MG TAB PO ×2 (09:16→22:01)
[2018-05-27 11:28] LABS: BEDSIDE GLUCOSE 212 MG/DL (70-105)
[2018-05-27] MEDS: PANTOPRAZOLE 40MG TAB (PROTONIX) PO (12:16)
[2018-05-27 16:37] LABS: BEDSIDE GLUCOSE 148 MG/DL (70-105)
[2018-05-27] MEDS ORDERED: VALSARTAN 80 MG TAB (DIOVAN) PO (21:00)
[2018-05-27 21:39] LABS: BEDSIDE GLUCOSE 208 MG/DL (70-105)
[2018-05-27] MEDS: LEVEMIR (INSULIN DETEMIR) 1 UNITS/0.01ML SC (22:00)
[2018-05-27] MEDS: SENNA 8.6 MG TAB (SENOKOT) PO (22:00)
[2018-05-28] MEDS: **hydrALAZINE** 50 MG TAB PO (06:00)
[2018-05-28] MEDS: HEPARIN SOD (PORCINE) 5000 UNITS/ML VIAL SQ ×3 (06:15→21:08)
[2018-05-28 06:19] LABS: BEDSIDE GLUCOSE 155 MG/DL (70-105)
[2018-05-28 06:51] LABS: BASO % 0.5 % (0.0-1.0); EOS # 0.4 10^3/uL (0.0-0.50); EOS % 5.9 % (0.0-3.0); HEMATOCRIT 40.6 % (42.0-52.0); IMMATURE GRANULOCYTE % 0.7 % (0-3.0); LYMPH # 1.2 10^3/uL (1.5-4.5); LYMPH % 19.9 % (24.0-44.0); MEAN CORPUSCULAR HEMOGLOBIN 26.4 pg (27.0-33.0); MEAN CORPUSCULAR VOLUME 82.5 fl (80.0-96.0); MONO # 0.7 10^3/uL (0.0-0.8); NEUTROPHILS # 3.6 10^3/uL (1.8-7.7); PLATELET COUNT, AUTOMATED 193 10^3/uL (150-450); RED BLOOD COUNT 4.92 10^6/uL (4.30-6.10); RED CELL DISTRIBUTION WIDTH 14.6 % (11.5-14.5); WHITE BLOOD COUNT 5.9 10^3/uL (4.0-10.0)
[2018-05-28 07:18] LABS: ANION GAP 6 MEQ/L (8-16); BLOOD UREA NITROGEN 13 MG/DL (7-18); CALCIUM LEVEL 9.2 MG/DL (8.5-10.1); CARBON DIOXIDE LEVEL 33 MEQ/L (21-32); CHLORIDE LEVEL 103 MEQ/L (98-107); GLOMERULAR FILTRATION RATE > 60.0 (>56); GLUCOSE, FASTING 147 MG/DL (70-100); MAGNESIUM LEVEL 1.7 MG/DL (1.8-2.4); POTASSIUM SERUM 3.8 MEQ/L (3.5-5.1); SODIUM LEVEL 142 MEQ/L (136-145)
[2018-05-28 07:21] LABS: FERRITIN 341 NG/ML (26-388); IRON (FE) 80 UG/DL (65-175); PERCENT SATURATION 30.9 % (19.7-50.0); TOTAL IRON BINDING CAPACITY 259 UG/DL (250-450)
[2018-05-28 09:43] LABS: VITAMIN B12 LEVEL 535 PG/ML (247-911)
[2018-05-28] MEDS: MIRALAX *UNIT DOSE* 17GM PACKET PO (09:43)
[2018-05-28] MEDS: HumaLOG INSULIN (NovoLOG) PER UNIT SC ×4 (09:43→21:00)
[2018-05-28 09:44] LABS: FOLATE 10.9 NG/ML (>5.4)
[2018-05-28] MEDS: ASPIRIN 81 MG ENTERIC TAB PO (09:44)
[2018-05-28] MEDS: amLODIPine 10 MG TAB PO (09:44)
[2018-05-28] MEDS: CLOPIDOGREL 75 MG TAB PO (09:44)
[2018-05-28] MEDS: cloNIDine 0.1 MG TAB PO ×2 (09:44→21:06)
[2018-05-28] MEDS: VALSARTAN 80 MG TAB (DIOVAN) PO (09:44)
[2018-05-28] MEDS: BISACODYL 5 MG TAB PO ×2 (09:44→11:47)
[2018-05-28] MEDS: PANTOPRAZOLE 40MG TAB (PROTONIX) PO (09:44)
[2018-05-28] MEDS: LABETALOL 100 MG TAB PO ×2 (09:45→21:05)
[2018-05-28] MEDS: FLUoxetine 20 MG CAP PO (09:45)
[2018-05-28] MEDS: ATORVASTATIN 20 MG TAB PO (09:45)
[2018-05-28 11:36] LABS: BEDSIDE GLUCOSE 129 MG/DL (70-105)
[2018-05-28] MEDS: metFORMIN (GLUCOPHAGE) 500 MG TAB PO (17:57)
[2018-05-28] MEDS: SENNA 8.6 MG TAB (SENOKOT) PO (21:00)
[2018-05-28] MEDS: LEVEMIR (INSULIN DETEMIR) 1 UNITS/0.01ML SC (21:08)
[2018-05-28 21:15] LABS: BEDSIDE GLUCOSE 162 MG/DL (70-105)
[2018-05-28 21:15] LABS: BEDSIDE GLUCOSE 182 MG/DL (70-105)
[2018-05-29 05:50] LABS: HEMATOCRIT 38.4 % (42.0-52.0); HEMOGLOBIN 12.2 g/dl (13.5-17.5); MEAN CORPUSCULAR HEMOGLOBIN 26.2 pg (27.0-33.0); MEAN CORPUSCULAR HGB CONC 31.8 g/dl (32.0-36.5); MEAN CORPUSCULAR VOLUME 82.4 fl (80.0-96.0); PLATELET COUNT, AUTOMATED 185 10^3/uL (150-450); RED BLOOD COUNT 4.66 10^6/uL (4.30-6.10); RED CELL DISTRIBUTION WIDTH 14.6 % (11.5-14.5)
[2018-05-29] MEDS: HEPARIN SOD (PORCINE) 5000 UNITS/ML VIAL SQ ×3 (06:05→21:07)
[2018-05-29 06:11] LABS: BEDSIDE GLUCOSE 142 MG/DL (70-105)
[2018-05-29] MEDS: BISACODYL 5 MG TAB PO (07:50)
[2018-05-29] MEDS: MIRALAX *UNIT DOSE* 17GM PACKET PO (07:50)
[2018-05-29] MEDS: HumaLOG INSULIN (NovoLOG) PER UNIT SC ×4 (08:34→21:00)
[2018-05-29] MEDS: CLOPIDOGREL 75 MG TAB PO (08:35)
[2018-05-29] MEDS: ASPIRIN 81 MG ENTERIC TAB PO (08:35)
[2018-05-29] MEDS: metFORMIN (GLUCOPHAGE) 500 MG TAB PO ×2 (08:35→17:57)
[2018-05-29] MEDS: FLUoxetine 20 MG CAP PO (08:35)
[2018-05-29] MEDS: amLODIPine 10 MG TAB PO (08:35)
[2018-05-29] MEDS: ATORVASTATIN 20 MG TAB PO (08:35)
[2018-05-29] MEDS: PANTOPRAZOLE 40MG TAB (PROTONIX) PO (08:35)
[2018-05-29] MEDS: VALSARTAN 80 MG TAB (DIOVAN) PO (08:35)
[2018-05-29] MEDS: cloNIDine 0.1 MG TAB PO ×2 (08:35→21:08)
[2018-05-29] MEDS: LABETALOL 100 MG TAB PO ×2 (08:36→21:08)
[2018-05-29 11:44] LABS: BEDSIDE GLUCOSE 122 MG/DL (70-105)
[2018-05-29 16:58] LABS: BEDSIDE GLUCOSE 172 MG/DL (70-105)
[2018-05-29 19:45] LABS: BEDSIDE GLUCOSE 129 MG/DL (70-105)
[2018-05-29] MEDS: SENNA 8.6 MG TAB (SENOKOT) PO (21:00)
[2018-05-29] MEDS: LEVEMIR (INSULIN DETEMIR) 1 UNITS/0.01ML SC (21:08)
[2018-05-30 06:28] LABS: BEDSIDE GLUCOSE 140 MG/DL (70-105)
[2018-05-30] MEDS: HEPARIN SOD (PORCINE) 5000 UNITS/ML VIAL SQ ×3 (06:50→20:44)
[2018-05-30] MEDS: cloNIDine 0.1 MG TAB PO (06:51)
[2018-05-30] MEDS: LABETALOL 100 MG TAB PO ×2 (06:52→20:45)
[2018-05-30] MEDS: MIRALAX *UNIT DOSE* 17GM PACKET PO (08:36)
[2018-05-30] MEDS: HumaLOG INSULIN (NovoLOG) PER UNIT SC ×4 (08:36→20:23)
[2018-05-30] MEDS: FLUoxetine 20 MG CAP PO (08:36)
[2018-05-30] MEDS: CLOPIDOGREL 75 MG TAB PO (08:36)
[2018-05-30] MEDS: ATORVASTATIN 20 MG TAB PO (08:37)
[2018-05-30] MEDS: metFORMIN (GLUCOPHAGE) 500 MG TAB PO ×2 (08:37→17:27)
[2018-05-30] MEDS: amLODIPine 10 MG TAB PO (08:37)
[2018-05-30] MEDS: PANTOPRAZOLE 40MG TAB (PROTONIX) PO (08:37)
[2018-05-30] MEDS: ASPIRIN 81 MG ENTERIC TAB PO (08:37)
[2018-05-30] MEDS: BISACODYL 5 MG TAB PO (08:38)
[2018-05-30] MEDS: VALSARTAN 80 MG TAB (DIOVAN) PO (08:38)
[2018-05-30 12:17] LABS: BEDSIDE GLUCOSE 197 MG/DL (70-105)
[2018-05-30] MEDS: cloNIDine 0.2 MG TAB PO ×2 (15:40→20:46)
[2018-05-30 16:46] LABS: BEDSIDE GLUCOSE 127 MG/DL (70-105)
[2018-05-30 19:38] LABS: BEDSIDE GLUCOSE 107 MG/DL (70-105)
[2018-05-30] MEDS: SENNA 8.6 MG TAB (SENOKOT) PO (20:45)
[2018-05-30] MEDS: LEVEMIR (INSULIN DETEMIR) 1 UNITS/0.01ML SC (20:45)
[2018-05-31] MEDS: HEPARIN SOD (PORCINE) 5000 UNITS/ML VIAL SQ ×3 (06:00→21:31)
[2018-05-31 06:23] LABS: BEDSIDE GLUCOSE 126 MG/DL (70-105)
[2018-05-31] MEDS: cloNIDine 0.2 MG TAB PO ×2 (06:50→21:32)
[2018-05-31] MEDS: VALSARTAN 80 MG TAB (DIOVAN) PO (06:50)
[2018-05-31] MEDS: amLODIPine 10 MG TAB PO (06:50)
[2018-05-31] MEDS: LABETALOL 100 MG TAB PO ×2 (06:53→21:32)
[2018-05-31] MEDS: PANTOPRAZOLE 40MG TAB (PROTONIX) PO (08:16)
[2018-05-31] MEDS: CLOPIDOGREL 75 MG TAB PO (08:16)
[2018-05-31] MEDS: MIRALAX *UNIT DOSE* 17GM PACKET PO (08:16)
[2018-05-31] MEDS: metFORMIN (GLUCOPHAGE) 500 MG TAB PO (08:17)
[2018-05-31] MEDS: ASPIRIN 81 MG ENTERIC TAB PO (08:17)
[2018-05-31] MEDS: ATORVASTATIN 20 MG TAB PO (08:17)
[2018-05-31] MEDS: FLUoxetine 20 MG CAP PO (08:17)
[2018-05-31] MEDS: HumaLOG INSULIN (NovoLOG) PER UNIT SC (08:18)
[2018-05-31] MEDS: BISACODYL 5 MG TAB PO (08:18)
[2018-05-31 11:49] LABS: BEDSIDE GLUCOSE 166 MG/DL (70-105)
[2018-05-31 16:24] LABS: BEDSIDE GLUCOSE 192 MG/DL (70-105)
[2018-05-31] MEDS: metFORMIN (GLUCOPHAGE) 1000 MG TABLET PO (17:26)
[2018-05-31 19:50] LABS: BEDSIDE GLUCOSE 134 MG/DL (70-105)
[2018-05-31] MEDS: SENNA 8.6 MG TAB (SENOKOT) PO (21:00)
[2018-05-31] MEDS: LEVEMIR (INSULIN DETEMIR) 1 UNITS/0.01ML SC (21:32)
[2018-06-01] MEDS: HEPARIN SOD (PORCINE) 5000 UNITS/ML VIAL SQ ×3 (06:35→21:04)
[2018-06-01 06:41] LABS: BEDSIDE GLUCOSE 126 MG/DL (70-105)
[2018-06-01] MEDS: MIRALAX *UNIT DOSE* 17GM PACKET PO (09:00)
[2018-06-01] MEDS: BISACODYL 5 MG TAB PO (09:00)
[2018-06-01] MEDS: ATORVASTATIN 20 MG TAB PO (09:32)
[2018-06-01] MEDS: metFORMIN (GLUCOPHAGE) 1000 MG TABLET PO ×2 (09:34→17:56)
[2018-06-01] MEDS: CLOPIDOGREL 75 MG TAB PO (09:34)
[2018-06-01] MEDS: FLUoxetine 20 MG CAP PO (09:35)
[2018-06-01] MEDS: ASPIRIN 81 MG ENTERIC TAB PO (09:35)
[2018-06-01] MEDS: VALSARTAN 80 MG TAB (DIOVAN) PO (09:35)
[2018-06-01] MEDS: PANTOPRAZOLE 40MG TAB (PROTONIX) PO (09:35)
[2018-06-01] MEDS: LABETALOL 100 MG TAB PO ×2 (09:35→21:03)
[2018-06-01] MEDS: cloNIDine 0.2 MG TAB PO ×2 (09:35→21:03)
[2018-06-01] MEDS: amLODIPine 10 MG TAB PO (09:36)
[2018-06-01 11:49] LABS: BEDSIDE GLUCOSE 133 MG/DL (70-105)
[2018-06-01 17:23] LABS: BEDSIDE GLUCOSE 179 MG/DL (70-105)
[2018-06-01 20:12] LABS: BEDSIDE GLUCOSE 151 MG/DL (70-105)
[2018-06-01] MEDS: SENNA 8.6 MG TAB (SENOKOT) PO (21:00)
[2018-06-01] MEDS: LEVEMIR (INSULIN DETEMIR) 1 UNITS/0.01ML SC (21:04)
[2018-06-02] MEDS: HEPARIN SOD (PORCINE) 5000 UNITS/ML VIAL SQ ×3 (06:13→21:26)
[2018-06-02 06:46] LABS: BEDSIDE GLUCOSE 153 MG/DL (70-105)
[2018-06-02 06:50] LABS: BASO % 0.5 % (0.0-1.0); EOS # 0.3 10^3/uL (0.0-0.50); EOS % 5.9 % (0.0-3.0); HEMATOCRIT 42.4 % (42.0-52.0); HEMOGLOBIN 13.8 g/dl (13.5-17.5); IMMATURE GRANULOCYTE % 0.5 % (0-3.0); LYMPH # 1.2 10^3/uL (1.5-4.5); LYMPH % 20.3 % (24.0-44.0); MEAN CORPUSCULAR HEMOGLOBIN 26.3 pg (27.0-33.0); MEAN CORPUSCULAR HGB CONC 32.5 g/dl (32.0-36.5); MEAN CORPUSCULAR VOLUME 80.9 fl (80.0-96.0); MONO # 0.7 10^3/uL (0.0-0.8); MONO % 11.2 % (0.0-5.0); NEUTROPHILS # 3.6 10^3/uL (1.8-7.7); NEUTROPHILS % 61.6 % (36.0-66.0); PLATELET COUNT, AUTOMATED 209 10^3/uL (150-450); RED BLOOD COUNT 5.24 10^6/uL (4.30-6.10); RED CELL DISTRIBUTION WIDTH 14.4 % (11.5-14.5); WHITE BLOOD COUNT 5.8 10^3/uL (4.0-10.0)
[2018-06-02 07:24] LABS: ANION GAP 5 MEQ/L (8-16); BLOOD UREA NITROGEN 12 MG/DL (7-18); CALCIUM LEVEL 9.2 MG/DL (8.5-10.1); CARBON DIOXIDE LEVEL 35 MEQ/L (21-32); CHLORIDE LEVEL 100 MEQ/L (98-107); CREATININE FOR GFR 0.88 MG/DL (0.70-1.30); GLOMERULAR FILTRATION RATE > 60.0 (>56); GLUCOSE, FASTING 154 MG/DL (70-100); POTASSIUM SERUM 3.7 MEQ/L (3.5-5.1); SODIUM LEVEL 140 MEQ/L (136-145)
[2018-06-02] MEDS: MIRALAX *UNIT DOSE* 17GM PACKET PO (09:00)
[2018-06-02] MEDS: CLOPIDOGREL 75 MG TAB PO (09:14)
[2018-06-02] MEDS: ASPIRIN 81 MG ENTERIC TAB PO (09:14)
[2018-06-02] MEDS: VALSARTAN 80 MG TAB (DIOVAN) PO (09:14)
[2018-06-02] MEDS: cloNIDine 0.2 MG TAB PO ×2 (09:15→21:26)
[2018-06-02] MEDS: metFORMIN (GLUCOPHAGE) 1000 MG TABLET PO ×2 (09:15→17:32)
[2018-06-02] MEDS: FLUoxetine 20 MG CAP PO (09:15)
[2018-06-02] MEDS: ATORVASTATIN 20 MG TAB PO (09:15)
[2018-06-02] MEDS: BISACODYL 5 MG TAB PO (09:15)
[2018-06-02] MEDS: LABETALOL 100 MG TAB PO ×2 (09:16→21:27)
[2018-06-02] MEDS: amLODIPine 10 MG TAB PO (09:16)
[2018-06-02] MEDS: PANTOPRAZOLE 40MG TAB (PROTONIX) PO (09:16)
[2018-06-02 11:40] LABS: BEDSIDE GLUCOSE 489 MG/DL (70-105)
[2018-06-02 11:43] LABS: BEDSIDE GLUCOSE 216 MG/DL (70-105)
[2018-06-02 16:50] LABS: BEDSIDE GLUCOSE 163 MG/DL (70-105)
[2018-06-02 19:34] LABS: BEDSIDE GLUCOSE 160 MG/DL (70-105)
[2018-06-02] MEDS: SENNA 8.6 MG TAB (SENOKOT) PO (21:00)
[2018-06-02] MEDS: LEVEMIR (INSULIN DETEMIR) 1 UNITS/0.01ML SC (21:26)
[2018-06-03 05:29] LABS: BEDSIDE GLUCOSE 146 MG/DL (70-105)
[2018-06-03] MEDS: HEPARIN SOD (PORCINE) 5000 UNITS/ML VIAL SQ ×3 (06:26→21:18)
[2018-06-03] MEDS: ASPIRIN 81 MG ENTERIC TAB PO (07:58)
[2018-06-03] MEDS: FLUoxetine 20 MG CAP PO (07:59)
[2018-06-03] MEDS: CLOPIDOGREL 75 MG TAB PO (07:59)
[2018-06-03] MEDS: PANTOPRAZOLE 40MG TAB (PROTONIX) PO (08:00)
[2018-06-03] MEDS: VALSARTAN 80 MG TAB (DIOVAN) PO (08:00)
[2018-06-03] MEDS: ATORVASTATIN 20 MG TAB PO (08:00)
[2018-06-03] MEDS: amLODIPine 10 MG TAB PO (08:00)
[2018-06-03] MEDS: metFORMIN (GLUCOPHAGE) 1000 MG TABLET PO ×2 (08:01→17:19)
[2018-06-03] MEDS: BISACODYL 5 MG TAB PO (08:01)
[2018-06-03] MEDS: cloNIDine 0.2 MG TAB PO ×2 (08:01→21:17)
[2018-06-03] MEDS: LABETALOL 100 MG TAB PO ×2 (08:01→21:17)
[2018-06-03] MEDS: MIRALAX *UNIT DOSE* 17GM PACKET PO (08:01)
[2018-06-03 11:36] LABS: BEDSIDE GLUCOSE 136 MG/DL (70-105)
[2018-06-03 16:43] LABS: BEDSIDE GLUCOSE 151 MG/DL (70-105)
[2018-06-03 20:32] LABS: BEDSIDE GLUCOSE 157 MG/DL (70-105)
[2018-06-03] MEDS: SENNA 8.6 MG TAB (SENOKOT) PO (21:00)
[2018-06-03] MEDS: LEVEMIR (INSULIN DETEMIR) 1 UNITS/0.01ML SC (21:18)
[2018-06-04] MEDS: HEPARIN SOD (PORCINE) 5000 UNITS/ML VIAL SQ (05:57)
[2018-06-04 06:40] LABS: BEDSIDE GLUCOSE 127 MG/DL (70-105)
[2018-06-04] MEDS: amLODIPine 10 MG TAB PO (08:42)
[2018-06-04] MEDS: BISACODYL 5 MG TAB PO (08:42)
[2018-06-04] MEDS: ATORVASTATIN 20 MG TAB PO (08:42)
[2018-06-04] MEDS: metFORMIN (GLUCOPHAGE) 1000 MG TABLET PO (08:42)
[2018-06-04] MEDS: FLUoxetine 20 MG CAP PO (08:42)
[2018-06-04] MEDS: CLOPIDOGREL 75 MG TAB PO (08:42)
[2018-06-04] MEDS: PANTOPRAZOLE 40MG TAB (PROTONIX) PO (08:43)
[2018-06-04] MEDS: ASPIRIN 81 MG ENTERIC TAB PO (08:43)
[2018-06-04] MEDS: cloNIDine 0.2 MG TAB PO (08:43)
[2018-06-04] MEDS: LABETALOL 100 MG TAB PO (08:43)
[2018-06-04] MEDS: VALSARTAN 80 MG TAB (DIOVAN) PO (08:43)
== END 2018-06-04 13:30 | disposition home health service (06) | DRG 57 ==
LOC: M PM&R 13:50
PROVIDERS: Physical Medicine & Rehabilitation
DX: I69.354 Hemiplegia and hemiparesis following cerebral infarction affecting left non-dominant side (principal); E11.65 Type 2 diabetes mellitus with hyperglycemia; I10 Essential (primary) hypertension; F17.200 Nicotine dependence, unspecified, uncomplicated; Z79.82 Long term (current) use of aspirin; Z79.899 Other long term (current) drug therapy; E66.01 Morbid (severe) obesity due to excess calories; F17.220 Nicotine dependence, chewing tobacco, uncomplicated; E78.5 Hyperlipidemia, unspecified; S80.822A Blister (nonthermal), left lower leg, initial encounter; Z79.4 Long term (current) use of insulin; I69.392 Facial weakness following cerebral infarction; I65.21 Occlusion and stenosis of right carotid artery; M81.0 Age-related osteoporosis without current pathological fracture; D64.9 Anemia, unspecified; L98.8 Other specified disorders of the skin and subcutaneous tissue; X58.XXXA Exposure to other specified factors, initial encounter; Y92.009 Unspecified place in unspecified non-institutional (private) residence as the place of occurrence of the external cause

== ENCOUNTER → 2018-07-16 | Outpatient (CLI) | payer MEDICARE ==
[2018-07-16 18:12] LABS: ALBUMIN 4.1 GM/DL (3.2-5.2); ALBUMIN/GLOBULIN RATIO 1.46 (1.00-1.93); ALKALINE PHOSPHATASE 103 U/L (45-117); ALT/SGPT 23 U/L (12-78); ANION GAP 12 MEQ/L (8-16); AST/SGOT 10 U/L (7-37); BILIRUBIN,TOTAL 0.5 MG/DL (0.2-1.0); BLOOD UREA NITROGEN 27 MG/DL (7-18); CALCIUM LEVEL 9.4 MG/DL (8.5-10.1); CARBON DIOXIDE LEVEL 31 MEQ/L (21-32); CHLORIDE LEVEL 98 MEQ/L (98-107); CHOLESTEROL LEVEL 139 MG/DL (<200); CHOLESTEROL RISK RATIO 4.343 (<5); CREATININE FOR GFR 1.93 MG/DL (0.70-1.30); GLOMERULAR FILTRATION RATE 38.3 (>56); GLUCOSE, FASTING 125 MG/DL (70-100); HDL CHOLESTEROL 32 MG/DL (>40); LDL CHOLESTEROL 70 MG/DL (<100); NON-HDL-C 107 MG/DL; POTASSIUM SERUM 4.2 MEQ/L (3.5-5.1); SODIUM LEVEL 141 MEQ/L (136-145); TOTAL PROTEIN 6.9 GM/DL (6.4-8.2); TRIGLYCERIDES LEVEL 184 MG/DL (<150)
[2018-07-16 18:15] LABS: ESTIMATED AVERAGE GLUCOSE 183 MG/DL (60-110)
== END ==
LOC: M WUC 11:43
DX: I10 Essential (primary) hypertension (principal); E11.9 Type 2 diabetes mellitus without complications
CPT/HCPCS: 80053

== ENCOUNTER 2019-07-30 11:11 | Inpatient (IN) | payer MEDICARE ==
[~2019-07-30] VITALS: Ht 180.3 cm; Wt 91.7 kg
[~2019-07-30 11:11] MED LIST changes: -ACETAMINOPHEN TAB 650MG DOSE (2X325MG) PO; +AMLO10TA5 PO; +ASPI81TA26 PO; +ATOR40TA75 PO; +BISAC5TA PO; -BISACODYL 10 MG SUPP PR; +CATA0.2T PO; +CLOP75TA2 PO; +DIOV80TA3 PO; -FLEET ENEMA PR; +FLUO20CA19 PO; +GLIP1TAB11 PO; +GLUC1INJ21 SC; +INSUDET SC; +LABE10TAB PO; +LOSA100T50 PO; -MAALOX 30 ML SUSP *UDC PO; +MELO15TA28 PO; +METF-791 PO; +METF-882 PO; +METO1TAB7 PO; -MIRALAX *UNIT DOSE* 17GM PACKET PO; -MOM 30ML SUSPENSION UDC PO; -ONDANSETRON 4 MG TAB (S0181) PO; -ONDANSETRON 4MG/2ML VIAL (J2405) IM; +PANT40TA3 PO; +SENN18TA PO; -SIMETHICONE 80 MG CHEW TAB PO; +VALS1TAB66 PO
[2019-07-30] MEDS ORDERED: FLUO40CA PO ×2 (11:28→13:49)
[2019-07-30] MEDS ORDERED: LISI10TA15 PO ×2 (11:28→13:49)
[2019-07-30 11:50] LABS: BASO # 0.1 10^3/uL (0.0-0.2); BASO % 0.4 % (0.0-1.0); HEMOGLOBIN 13.1 g/dl (13.5-17.5); LYMPH # 1.9 10^3/uL (1.5-5.0); LYMPH % 10.8 % (24.0-44.0); MEAN CORPUSCULAR HEMOGLOBIN 27.5 pg (27.0-33.0); MONO # 1.7 10^3/uL (0.0-0.8); MONO % 9.4 % (0.0-5.0); NEUTROPHILS # 13.5 10^3/uL (1.5-8.5); NEUTROPHILS % 76.2 % (36.0-66.0); PLATELET COUNT, AUTOMATED 235 10^3/uL (150-450); RED BLOOD COUNT 4.77 10^6/uL (4.30-6.10); WHITE BLOOD COUNT 17.6 10^3/uL (4.0-10.0)
[2019-07-30] MEDS ORDERED: NS 1,000 ML IV ONE (12:15)
[2019-07-30] MEDS ORDERED: ONDANSETRON 4MG/2ML VIAL (J2405) IV ONE (12:15)
[2019-07-30] MEDS ORDERED: PANTOPRAZOLE 40MG INJ (PROTONIX) (C9113) IV ONE (12:15)
[2019-07-30 12:16] LABS: ALT/SGPT 19 U/L (12-78); BILIRUBIN,DIRECT 0.2 MG/DL (0.0-0.2); BILIRUBIN,TOTAL 0.6 MG/DL (0.2-1.0); BLOOD UREA NITROGEN 109 MG/DL (7-18); CALCIUM LEVEL 8.9 MG/DL (8.5-10.1); CARBON DIOXIDE LEVEL 13 MEQ/L (21-32); CHLORIDE LEVEL 90 MEQ/L (98-107); GLOMERULAR FILTRATION RATE 3.3 (>56); GLUCOSE, FASTING 125 MG/DL (70-100); LIPASE 345 U/L (73-393); POTASSIUM SERUM 5.8 MEQ/L (3.5-5.1); SODIUM LEVEL 133 MEQ/L (136-145)
[2019-07-30 12:45] LABS: CK-MB VALUE MASS 2.1 NG/ML (<3.6); CPK CREATINE PHOSPHOKINASE 120 U/L (39-308); ETHYL ALCOHOL (ETHANOL) < 0.003 % (0.000-0.010); MB/CK RELATIVE INDEX 1.75 (< OR =4); THYROID STIMULATING HORMONE 0.085 uIU/ML (0.358-3.740); TROPONIN I < 0.02 NG/ML (< 0.10)
[2019-07-30] MEDS ORDERED: LIDOCAINE 2% 5ML JELLY UROJET TOP ONE (13:00)
[2019-07-30 13:10] LABS: ABG O2 SATURATION 96.4 % (95.0-99.0); ABG PARTIAL PRESSURE O2 94.9 mmHg (75.0-100.0); ABG STANDARD HCO3 13.8 MEQ/L (22.0-26.0); ABG TOTAL CO2 12.9 MEQ/L (22.0-29.0)
[2019-07-30 13:16] LABS: ABG pH (ARTERIAL) 7.236 UNITS (7.350-7.450)
[2019-07-30 13:40] LABS: ACETAMINOPHEN LEVEL < 2.0 UG/ML (10.0-30.0); SALICYLATE LEVEL 4.2 MG/DL (5.0-30.0)
[2019-07-30] MEDS ORDERED: SOD POLYSTYRENE SULFONATE SUSP 15 GM/60 ML UD PO ONE (13:45)
--- NOTE | 2019-07-30 13:45 | REP ---
REASON: Vomiting. COMPARISON: 05/10/2018. Since the last examination, no acute hemorrhagic or nonhemorrhagic intracranial event has developed. Note is again made of bilateral lacunar infarcts in the basal ganglia. There does appear to be some progression of the chronic change on the right versus technically related parameters giving the appearance of change. There is no shift of the midline structures. There is no change in the ventricles and sulci. There is no change in the skull or paranasal sinuses. IMPRESSION: No evidence of acute disease. Chronic changes as described above. Electronically Signed by Rashid Stearns DO 07/30/2019 02:07 P
--- NOTE | 2019-07-30 13:47 | REP ---
REASON: Vomiting. FINDINGS: Supine and upright views of the abdomen show the intestinal gas pattern to be nonspecific. Gas and stool is seen throughout the colon within the rectosigmoid region. The organ silhouettes insofar as delineated appear unremarkable. No abdominal calcific densities are seen within the abdomen or pelvis. The accompanying single frontal view of the chest shows no free subdiaphragmatic air, cardiomegaly, infiltrates or effusions. IMPRESSION: Nonspecific intestinal gas pattern. Electronically Signed by Rashid Stearns DO 07/30/2019 02:07 P
[2019-07-30] MEDS ORDERED: PLAV1TAB2 PO (13:49)
[2019-07-30] MEDS ORDERED: ATOR40TA75 PO (13:49)
[2019-07-30] MEDS ORDERED: CLON0.2T PO (13:49)
[2019-07-30] MEDS ORDERED: LABE10TAB PO (13:49)
[2019-07-30] MEDS ORDERED: METF10004 PO (13:49)
[2019-07-30] MEDS ORDERED: PANT-23 PO (13:49)
[2019-07-30] MEDS ORDERED: AMLO10TA5 PO (13:49)
[2019-07-30] MEDS ORDERED: ECOT81TA5 PO (13:49)
[2019-07-30 14:06] LABS: AMPHETAMINES LEVEL URINE NEGATIVE (NEGATIVE); BARBITURATES URINE NEGATIVE (NEGATIVE); BENZODIAZEPINES URINE NEGATIVE (NEGATIVE); CANNABINOIDS URINE NEGATIVE (NEGATIVE); COCAINE METABOLITE URINE NEGATIVE (NEGATIVE); METHADONE URINE NEGATIVE (NEGATIVE); OPIATES URINE NEGATIVE (NEGATIVE); PHENCYCLIDINE URINE NEGATIVE (NEGATIVE)
[2019-07-30] MEDS: NS 1,000 ML IV SCH ×2 (14:15→18:49)
--- NOTE | 2019-07-30 14:44 | HPEPDOC ---
[facility] Medical History & Physical Date of Admission Jul 30, 2019 Date of Service: Jul 30, 2019 Attending Physician: MICKEY HSU MD History and Physical CHIEF COMPLAINT: Nausea, vomiting, diarrhea, malaise HISTORY OF PRESENT ILLNESS: 58 y.o male w/ PMH of HTN, DM and CVA (residual L hemiparesis) presents to the emergency room with nausea, vomiting, diarrhea, and malaise for the past 5 days. He has not had similar symptoms in the past, denies anybody else at home with similar symptoms, denies sick contacts, reports very poor appetite for the past 5 days. In the ED he was found to have severe acute renal failure with a creatinine of 16, takes ROBYN inhibitor and hydrochlorothiazide along with metformin at home. He was straight cathed the ED with removal of 400 mL of urine. Labs are also suggestive of severe anion gap metabolic acidosis. He denies any shortness of breath, chest pain, abdominal pain, headache, or difficulty urinating at this time. 10 point review of system was negative except for above PAST MEDICAL HISTORY: 1. HTN. 2. DM. 3. CVA. PAST SURGICAL HISTORY: 1. Leg surgery. SOCIAL HISTORY: Tobacco use:Ex-smoker ETOH: rare FAMILY HISTORY: no FH of malignancy ALLERGIES: Please see below. HOME MEDICATIONS: Please see below. PHYSICAL EXAMINATION: VITAL SIGNS: Please see below. GENERAL: No distress HEENT: Normocephalic, atraumatic, dry mucous membranes NECK: Supple CARDIOVASCULAR EXAMINATION: S1, S2, no murmurs RESPIRATORY EXAMINATION: Clear to auscultation, no wheezing ABDOMINAL EXAMINATION: Soft, nontender, nondistended, positive bowel sounds EXTREMITIES: Range of motion intact SKIN: No rash NEUROLOGICAL EXAMINATION: Alert and oriented 3, no focal deficits PSYCHIATRIC EXAMINATION: Calm and cooperative LABORATORY DATA: See below. IMAGING: CT head negative for acute process MICROBIOLOGY: Please see below. ASSESSMENT: 28-year-old male with past medical history of hypertension, diabetes and CVA, admitted for acute renal failure and high anion gap acidosis, likely due to decreased by mouth intake and medications. . PLAN: 1. Acute renal failure. Likely due to dehydration, ROBYN inhibitor and hydrochlorothiazide, metformin. Status post 1 L normal saline bolus in the ED, continue normal saline at 250 mL per hour. Hyperkalemia: Status post Kayexalate in the ED No acute indications for hemodialysis. ABG reviewed pH acceptable, metabolic acidosis. 2. High anion gap acidosis. Likely related to metformin and acute renal failure. Lactate, Tylenol, aspirin levels pending. 3. Hypertension. Continue home meds with hold parameters. 4. CVA. Continue home aspirin, Plavix and statin. 5. Diabetes mellitus. Hold metformin. Sliding scale insulin with fingersticks before every meal and at bedtime DVT prophylaxis: Heparin subcutaneous. GI prophylaxis: Not needed at this time Vital Signs Vital Signs Date Time Temp Pulse Resp B/P (MAP) Pulse Ox O2 Delivery O2 Flow Rate FiO2 07/30/19 13:00 97 176/83 (114) 97 07/30/19 11:24 19 Room Air 07/30/19 11:23 97.5 Laboratory Data Labs 24H Laboratory Tests 2 07/30/19 11:37: Immature Granulocyte % (Auto) 3.2H, White Blood Count 17.6H, Red Blood Count 4 .77, Hemoglobin 13.1L, Hematocrit 41.0L, Mean Corpuscular Volume 86.0, Mean Corpuscular Hemoglobin 27.5, Mean Corpuscular Hemoglobin Concent 32.0, Red Cell Distribution Width 14.0, Platelet Count 235, Neutrophils (%) (Auto) 76.2H, Lymphocytes (%) (Auto) 10.8L, Monocytes (%) (Auto) 9.4H, Eosinophils (%) (Auto) 0.0, Basophils (%) (Auto) 0.4, Neutrophils # (Auto) 13.5H, Lymphocytes # (Auto) 1.9, Monocytes # (Auto) 1.7H, Eosinophils # (Auto) 0.0, Basophils # (Auto) 0.1, Nucleated Red Blood Cells % (auto) 0.0, Anion Gap 30H, Glomerular Filtration Rate 3.3L, Calcium Level 8.9, Aspartate Amino Transf (AST/SGOT) 15, Alanine Aminotransferase (ALT/SGPT) 19, Alkaline Phosphatase 99, Total Bilirubin 0.6, Direct Bilirubin 0.2, Total Creatine Kinase 120, Creatine Kinase MB 2.1, Creatine Kinase MB Relative Index 1.75, Troponin I < 0.02, Total Protein 8.0, Albumin 4.0, Albumin/Globulin Ratio 1.00, Lipase 345, Thyroid Stimulating Hormone (TSH) 0.085L, Salicylates Level 4.2L, Acetaminophen Level < 2.0L, Ethyl Alcohol Level < 0.003 07/30/19 13:01: Blood Gas Bicarbonate Standard 13.8L, Arterial Blood pH 7.236*L, Arterial Blood Partial Pressure CO2 29.0L, Arterial Blood Partial Pressure O2 94.9, Arterial Blood Total CO2 12.9L, Arterial Blood HCO3 12.0L, Arterial Blood Base Excess - 14.0L, Arterial Blood Oxygen Saturation 96.4 07/30/19 13:24: Urine Color YELLOW, Urine Appearance CLOUDYH, Urine pH 5.0, Urine Specific Edgar 1.013, Urine Protein 2+H, Urine Glucose (UA) 1+H, Urine Ketones 1+H, Urine Blood 2+H, Urine Nitrite NEGATIVE, Urine Bilirubin NEGATIVE, Urine Urobilinogen 0.2, Urine Leukocyte Esterase NEGATIVE, Urine WBC (Auto) 5H, Urine RBC (Auto) 7H, Urine Hyaline Casts (Auto) 5, Urine Bacteria (Auto) 1+H, Urine Squamous Epithelial Cells 0, Urine Transitional Epithelial Cells 2, Urine Amorphous Sediment SMALLH, Urine Mucus (Auto) SMALL, Urine Sperm (Auto) , Urine Amphetamines Screen NEGATIVE, Urine Benzodiazepines Screen NEGATIVE, Urine Op iates Screen NEGATIVE, Urine Methadone Screen NEGATIVE, Urine Barbiturates Screen NEGATIVE, Urine Phencyclidine Screen NEGATIVE, Urine Cocaine Metabolite Screen NEGATIVE, Urine Cannabinoids Screen NEGATIVE CBC/BMP Laboratory Tests 07/30/19 11:37 Red Blood Count 4.77, Mean Corpuscular Volume 86.0, Mean Corpuscular Hemoglobin 27.5, Mean Corpuscular Hemoglobin Concent 32.0, Red Cell Distribution Width 14.0, Neutrophils (%) (Auto) 76.2 H, Lymphocytes (%) (Auto) 10.8 L, Monocytes (%) (Auto) 9.4 H, Eosinophils (%) (Auto) 0.0, Basophils (%) (Auto) 0.4, Neutrophils # (Auto) 13.5 H, Lymphocytes # (Auto) 1.9, Monocytes # (Auto) 1.7 H, Eosinophils # (Auto) 0.0, Basophils # (Auto) 0.1 Home Medications Scheduled Amlodipine Besylate (Amlodipine Besylate) 10 Mg Tablet, 10 MG PO DAILY Aspirin (Ecotrin) 81 Mg Tablet.dr, 81 MG PO DAILY Atorvastatin Calcium (Atorvastatin Calcium) 40 Mg Tablet, 40 MG PO DAILY Clonidine HCl (Clonidine HCl) 0.2 Mg Tablet, 0.2 MG PO BID Clopidogrel Bisulfate (Plavix) 75 Mg Tablet, 75 MG PO DAILY Fluoxetine Hcl (Fluoxetine HCl) 40 Mg Capsule, 40 MG PO DAILY Labetalol HCl (Labetalol HCl) 100 Mg Tablet, 100 MG PO BID Lisinopril/Hydrochlorothiazide (Lisinopril-Hctz 10-12.5 mg Tab) 1 Each Tablet, 1 TAB PO DAILY Metformin HCl (Metformin HCl) 1,000 Mg Tablet, 1,000 MG PO BID Pantoprazole Sodium (Pantoprazole Sodium) 40 Mg Tablet.dr, 40 MG PO DAILY Allergies Coded Allergies: No Known Allergies (Verified , 07/30/19) A-FIB/CHADSVASC A-FIB History Current/History of A-Fib/PAF?: No MICKEY HSU MD Jul 30, 2019 14:44
[2019-07-30 16:00] VITALS: BP 180/82
[2019-07-30 16:14] LABS: CALCIUM LEVEL 8.5 MG/DL (8.5-10.1); CREATININE FOR GFR 15.5 MG/DL (0.70-1.30); GLOMERULAR FILTRATION RATE 3.4 (>56); POTASSIUM SERUM 5.6 MEQ/L (3.5-5.1)
[2019-07-30] MEDS: CLOPIDOGREL 75 MG TAB PO SCH (17:07)
[2019-07-30] MEDS: amLODIPine 10 MG TAB PO SCH (17:07)
[2019-07-30] MEDS: ASPIRIN 81 MG ENTERIC TAB PO SCH (17:07)
[2019-07-30] MEDS: ATORVASTATIN 20 MG TAB PO SCH (17:07)
[2019-07-30] MEDS: FLUoxetine 20 MG CAP PO SCH (17:07)
[2019-07-30] MEDS: HumaLOG INSULIN (NovoLOG) PER UNIT SC SCH (17:30)
[2019-07-30] MEDS: ONDANSETRON 4MG/2ML VIAL (J2405) IV PRN (17:38)
[2019-07-30] MEDS ORDERED: GLUCOSE 4 GM CHEW TABLET PO PRN (17:45)
[2019-07-30] MEDS ORDERED: GLUCAGON FOR INJ 1 MG VIAL (J1610) SC PRN (17:45)
[2019-07-30] MEDS ORDERED: DEXTROSE 50% 50 ML SYRINGE IV PRN (17:45)
[2019-07-30 20:00] VITALS: BP 166/86
[2019-07-30] MEDS: LABETALOL 100 MG TAB PO SCH (20:18)
[2019-07-30] MEDS: cloNIDine 0.2 MG TAB PO SCH (20:19)
[2019-07-30] MEDS: HEPARIN SOD (PORCINE) 5000 UNITS/ML VIAL SC SCH (20:20)
[2019-07-30] MEDS ORDERED: HumaLOG INSULIN (NovoLOG) PER UNIT SC SCH (21:00)
[2019-07-31] VITALS (9 sets, daily range): BP systolic 97–176; BP diastolic 50–78
[2019-07-31] MEDS: NS 1,000 ML IV SCH ×2 (01:29→08:32)
[2019-07-31 05:37] LABS: HEMATOCRIT 32.7 % (42.0-52.0); MEAN CORPUSCULAR HEMOGLOBIN 27.4 pg (27.0-33.0); MEAN CORPUSCULAR HGB CONC 32.7 g/dl (32.0-36.5); MEAN CORPUSCULAR VOLUME 83.6 fl (80.0-96.0); PLATELET COUNT, AUTOMATED 176 10^3/uL (150-450); RED BLOOD COUNT 3.91 10^6/uL (4.30-6.10); WHITE BLOOD COUNT 10.2 10^3/uL (4.0-10.0)
[2019-07-31 05:43] LABS: HEMOGLOBIN 10.7 g/dl (13.5-17.5)
[2019-07-31 06:05] LABS: ALBUMIN 3.2 GM/DL (3.2-5.2); BILIRUBIN,TOTAL 0.5 MG/DL (0.2-1.0); CALCIUM LEVEL 7.8 MG/DL (8.5-10.1); CREATININE FOR GFR 14.4 MG/DL (0.70-1.30); GLOMERULAR FILTRATION RATE 3.7 (>56); MAGNESIUM LEVEL 1.5 MG/DL (1.8-2.4); POTASSIUM SERUM 4.6 MEQ/L (3.5-5.1); TOTAL PROTEIN 6.6 GM/DL (6.4-8.2)
[2019-07-31] MEDS: HEPARIN SOD (PORCINE) 5000 UNITS/ML VIAL SC SCH ×2 (06:15→20:29)
[2019-07-31] MEDS: HumaLOG INSULIN (NovoLOG) PER UNIT SC SCH ×2 (07:13→12:00)
[2019-07-31] MEDS: ONDANSETRON 4MG/2ML VIAL (J2405) IV PRN (08:31)
[2019-07-31] MEDS: MAG SULF 1GM/100ML (MAG RUN) 1 GM in IV 1 EA IV SCH ×3 (08:32→10:32)
[2019-07-31] MEDS: ASPIRIN 81 MG ENTERIC TAB PO SCH (08:32)
[2019-07-31] MEDS: CLOPIDOGREL 75 MG TAB PO SCH (08:32)
[2019-07-31] MEDS: PANTOPRAZOLE 40MG TAB (PROTONIX) PO SCH (08:32)
[2019-07-31] MEDS: cloNIDine 0.2 MG TAB PO SCH ×2 (08:32→20:31)
[2019-07-31] MEDS: ATORVASTATIN 20 MG TAB PO SCH (08:33)
[2019-07-31] MEDS: FLUoxetine 20 MG CAP PO SCH (08:33)
[2019-07-31] MEDS: LABETALOL 100 MG TAB PO SCH ×2 (08:33→20:30)
[2019-07-31] MEDS: amLODIPine 10 MG TAB PO SCH (08:33)
[2019-07-31 13:03] LABS: ACETONE/KETONE 25.61 MG/DL (<2.81); CALCIUM LEVEL 7.7 MG/DL (8.5-10.1); CREATININE FOR GFR 13.6 MG/DL (0.70-1.30); PHOSPHORUS LEVEL 6.1 MG/DL (2.5-4.9); POTASSIUM SERUM 4.2 MEQ/L (3.5-5.1)
--- NOTE | 2019-07-31 13:55 | REP ---
REASON FOR EXAM: Acute kidney injury. FINDINGS: Multiple ultrasonographic images of the right kidney show the right kidney to measure 13.9 x 6.3 x 6.9 cm. The renal cortical echotexture is unremarkable. There are no masses. There is good corticomedullary differentiation. There is no hydronephrosis. There are no perinephric fluid collections. Multiple ultrasonographic images of the left kidney show the left kidney to measure 13.7 x 6.2 x 6.3 cm. The renal cortical echotexture is unremarkable. There are no masses. There is good corticomedullary differentiation. There is no hydronephrosis. There are no perinephric fluid collections. Images of the urinary bladder were obtained solely for the purpose of assessing for urojet phenomenon. Color Doppler imaging shows urojet phenomenon on the left. On scanning of the urinary bladder, note is made of a possibly enlarged prostate gland, which should be correlated clinically. IMPRESSION: Unremarkable renal ultrasonography. Electronically Signed by Rashid Stearns DO 07/31/2019 02:28 P
[2019-07-31] MEDS ORDERED: INSULIN HUMAN REGULAR 100 UNITS in NS 99 ML IV SCH ×3 (14:15→15:00)
[2019-07-31] MEDS ORDERED: INSULIN IV RATE CHANGE DOCUMENTATION ML/HR XX SCH (14:15)
[2019-07-31] MEDS ORDERED: KCL 20MEQ IN D5/NS 1000ML 1,000 ML IV SCH (14:15)
--- NOTE | 2019-07-31 14:25 | IPNPDOC ---
Date Seen The patient was seen on 07/31/19. Progress Note HISTORY OF PRESENT ILLNESS: 58 y.o male w/ PMH of HTN, DM and CVA (residual L hemiparesis) presents to the emergency room with nausea, vomiting, diarrhea, and malaise for the past 5 days. He has not had similar symptoms in the past, denies anybody else at home with similar symptoms, denies sick contacts, reports very poor appetite for the past 5 days. In the ED he was found to have severe acute renal failure with a creatinine of 16, takes ROBYN inhibitor and hydrochlorothiazide along with metformin at home. He was straight cathed the ED with removal of 400 mL of urine. Labs are also suggestive of severe anion gap metabolic acidosis. He denies any shortness of breath, chest pain, abdominal pain, headache, or difficulty urinating at this time. 07/31/2019 No acute events, comfortable, without complaints, making large volume of urine but incontinent. 10 point review of system was negative except for above ALLERGIES: Please see below. HOME MEDICATIONS: Please see below. PHYSICAL EXAMINATION: VITAL SIGNS: Please see below. GENERAL: No distress HEENT: Normocephalic, atraumatic, dry mucous membranes NECK: Supple CARDIOVASCULAR EXAMINATION: S1, S2, no murmurs RESPIRATORY EXAMINATION: Clear to auscultation, no wheezing ABDOMINAL EXAMINATION: Soft, nontender, nondistended, positive bowel sounds EXTREMITIES: LE edema L>R SKIN: No rash NEUROLOGICAL EXAMINATION: Alert and oriented 3, L sided weakness. PSYCHIATRIC EXAMINATION: Calm and cooperative LABORATORY DATA: See below. IMAGING: CT head negative for acute process MICROBIOLOGY: Please see below. ASSESSMENT: 28-year-old male with past medical history of hypertension, diabetes and CVA, admitted for acute renal failure and high anion gap acidosis, likely due to decreased by mouth intake and medications. . PLAN: 1. Acute renal failure. Likely due to dehydration, ROBYN inhibitor and hydrochlorothiazide, metformin. Creatinine slightly improved, good urine output. No acute indications for hemodialysis. labs reviewed and concerning for euglycemic DKA, will initiate Insulin drip, D5 + 1/2 NS and transfer patient to ICU. 2. Hypertension. Continue home meds with hold parameters. 3. CVA. Continue home aspirin, Plavix and statin. 4. Diabetes mellitus. Hold metformin. DKA - treatment as above. DVT prophylaxis: Heparin subcutaneous. GI prophylaxis: Not needed at this time [facility]O Vital Signs Date Time Temp Pulse Resp B/P (MAP) Pulse Ox O2 Delivery O2 Flow Rate FiO2 07/31/19 11:45 97.9 62 18 97/50 (66) 95 07/30/19 14:46 Room Air I&O- Last 24 Hours up to 6 AM 07/31/19 06:00 Intake Total 3650 ml Output Total 400 ml Balance 3250 ml Laboratory Data 24H LABS Laboratory Tests 2 07/30/19 15:30: Anion Gap 26H, Glomerular Filtration Rate 3.4L, Osmolality 341H, Lactic Acid Level 2.2*H, Blood Urea Nitrogen 115H, Creatinine 15.50*H, Sodium Level 134L, Potassium Level 5.6H, Chloride Level 93L, Carbon Dioxide Level 15L, Calcium Level 8.5 07/30/19 19:49: Lactic Acid Followup at 4 Hours 2.0 07/31/19 05:20: Anion Gap 17H, Glomerular Filtration Rate 3.7L, Blood Urea Nitrogen 110H, Creatinine 14.40*H, Sodium Level 138, Potassium Level 4.6, Chloride Level 101, Carbon Dioxide Level 20L, Calcium Level 7.8L, Nucleated Red Blood Cells % (auto) 0.0, Aspartate Amino Transf (AST/SGOT) 12, Alanine Aminotransferase (ALT/SGPT) 20, Alkaline Phosphatase 79, Total Bilirubin 0.5, Total Protein 6.6, Albumin 3.2, Magnesium Level 1.5L, Albumin/Globulin Ratio 0.94L 07/31/19 12:23: Anion Gap 16, Glomerular Filtration Rate 4.0L, Blood Urea Nitrogen 107H, Creatinine 13.60*H, Sodium Level 136, Potassium Level 4.2, Chloride Level 98, Carbon Dioxide Level 22, Calcium Level 7.7L, Phosphorus Level 6.1H, B- Hydroxybutyrate 25.61H CBC/BMP Laboratory Tests 07/30/19 15:30 Calcium Level 8.5 07/31/19 05:20 Calcium Level 7.8 L, Red Blood Count 3.91 L, Mean Corpuscular Volume 83.6, Mean Corpuscular Hemoglobin 27.4, Mean Corpuscular Hemoglobin Concent 32.7, Red Cell Distribution Width 14.1, Aspartate Amino Transf (AST/SGOT) 12, Alanine Aminotransferase (ALT/SGPT) 20, Alkaline Phosphatase 79, Total Bilirubin 0.5, Total Protein 6.6, Albumin 3.2 07/31/19 12:23 Calcium Level 7.7 L MICKEY HSU MD Jul 31, 2019 14:10
[2019-07-31] MEDS: D5W/0.45% SODIUM CHLORIDE 1,000 ML IV SCH ×2 (14:58→22:01)
[2019-07-31] MEDS: CEFEPIME HCL 1 GM in D5W MINI-BAG PLUS 50 ML IV SCH (14:58)
[2019-07-31] MEDS: INSULIN IV RATE CHANGE DOCUMENTATION ML/HR XX SCH ×8 (15:00→23:08)
--- NOTE | 2019-07-31 15:29 | CR ---
DATE OF CONSULTATION: 07/31/2019 REQUESTING PHYSICIAN: Franci Flakita Somers CONSULTING PHYSICIAN: Yusra Richard MD REASON FOR CONSULTATION: Management of acute renal failure. CHIEF COMPLAINT: The patient presented to the hospital yesterday with nausea, vomiting, diarrhea, and not feeling well. HISTORY OF PRESENT ILLNESS: Mr. Noe Stearns is a 58-year-old male with past medical history of diabetes mellitus type 2, hypertension, cerebrovascular accident (CVA) with residual left-sided weakness. He presented to the emergency room yesterday with generalized malaise, not feeling well. He was nauseated, having vomiting and diarrhea for almost 5 days. He kept on taking his home medications, which includes metformin, angiotensin-converting enzyme (ROBYN) inhibitor, and a thiazide diuretic. On further evaluation in the emergency room, the patient was found to have elevated white cell count of 17,000. He was in acute renal failure with a creatinine of 16. He had high anion gap acidosis with a bicarbonate of 13 and anion gap of 30. He was admitted under the hospitalist service last night. He was treated with intravenous (IV) fluid hydration for acute renal failure. Nephrology service was called today morning because his creatinine was 16 on arrival and is still around 14 and was not getting much better. The patient needed my immediate attention. I saw and evaluated the patient in the afternoon at the bedside. He was actually sitting in the sofa. The patient is very lethargic. He answers few questions. He is still not feeling well. He reports that he has no appetite. He does not want to eat anything. There was no correct recording of the urine output. The patient had at two incontinent voids in the morning. PAST MEDICAL HISTORY: Past medical history of hypertension, diabetes mellitus type 2 non-insulin dependent, history of CVA with left-sided hemiparesis. PAST SURGICAL HISTORY: History of leg surgery in the past. ALLERGIES: No known drug allergies. FAMILY HISTORY: No significant family history of end-stage renal disease requiring hemodialysis. SOCIAL HISTORY: The patient is an ex-smoker. He denies any smoking, illicit drug abuse, or alcohol abuse. REVIEW OF SYSTEMS: Constitutional: The patient reports feeling very weak and tired. Eyes: He denies any blurry vision, double vision. Ears, nose, and throat (ENT): He denies any dysphagia, odynophagia. Cardiovascular: He denies any chest pain or palpitation. Respiratory: He denies any shortness of breath or cough. Gastrointestinal (GI): He reports nausea, vomiting, diarrhea. Genitourinary: He denies any dysuria or hematuria. Musculoskeletal: He reports muscle weakness. He denies any muscle aches and pains. Skin: He denies any rashes or ulcers. Hematological/oncological: He denies any easy bleeding or bruising. Endocrine: He reports a history of diabetes mellitus type 2. There is no history of hypothyroidism. Psychiatric: The patient has a depressed mood. Central nervous system ([employer]): The patient moves extremities, but he is lethargic. All other review of systems is negative. PHYSICAL EXAMINATION: General: The patient is lethargic, laying in the recliner, answers few questions. Vital signs: Temperature is 97.9 degrees Fahrenheit, blood pressure 97/50, pulse is 62, respiratory rate of 18, saturating 95% on room air. Head and neck examination: Extraocular muscles intact. Pupils equally round and reactive to light. Mucous membranes are moist. Neck is supple. There is no jugular venous distention (JVD). Cardiovascular: S1, S2, regular rate. No edema of the bilateral lower extremities. Respiratory: Chest is clear to auscultation bilaterally. Bilateral equal air entry. No rales or rhonchi. Abdomen: Soft, positive bowel sounds. Nontender. No organomegaly. Genitourinary: Bladder is nonpalpable. No hernia noted. Musculoskeletal: No clubbing or cyanosis. Pulses are 2+. Central nervous system ([employer]): The patient has left-sided hemiparesis. He follows commands, and he is able to answer questions. LABORATORY REVIEW: Complete blood count (CBC) showed a WBC of 17.6 on arrival; it is 10.2 today, hemoglobin is 10.7, platelets are 176. Urinalysis done yesterday showed it was cloudy with 2+ protein, 1+ ketones, 2+ blood. Arterial blood gas (ABG) done arrival showed a pH of 7.23, pCO2 of 29, bicarbonate of 12, oxygen (O2) saturation of 96. Basic metabolic profile (BMP) done on arrival showed sodium 133, potassium 5.8, chloride 90, bicarbonate 13, anion gap of 30, BUN 109, creatinine 16.1, total bilirubin 0.6, AST, ALT, and alkaline phosphatase were within the normal limit, troponin was less than 0.02, lipase 345, TSH was 0.085. Repeat BMP done today afternoon showed sodium 136, potassium 4.2, chloride 98, bicarbonate 22, BUN 107, creatinine is 13.6, glucose is 168, calcium is 7.7, phosphorus is 6.1, magnesium is 1.5. Toxicology: Salicylate level is 4.2, acetaminophen was less than 2, ethyl alcohol was less is 0.033, B-hydroxybutyrate done today in the afternoon is 25.6. MICROBIOLOGY: No blood cultures or urine cultures are available at this time. IMAGING: A renal ultrasound was done today morning, which showed unremarkable renal ultrasonography. A CAT scan of the head was done yesterday, which showed no evidence of acute disease. HOME MEDICATIONS: The patient's home medications include amlodipine 10 mg daily, aspirin 81 mg daily, Lipitor 40 mg nightly, clonidine 0.2 mg by mouth twice a day, Plavix 75 mg by mouth daily, Uloric 80 mg by mouth daily, labetalol 100 mg by mouth twice a day, lisinopril/hydrochlorothiazide 10/12.5 mg tablet one tablet by mouth daily, metformin 1 gram by mouth twice a day, Protonix 40 mg by mouth daily. CURRENT INPATIENT MEDICATIONS: The patient's medications were all reviewed by me. The patient is getting normal saline at 150 mL/h. He is on amlodipine 10 mg daily, aspirin 81 mg daily, Lipitor 40 mg daily, clonidine 0.2 mg by mouth twice a day, Plavix 75 mg by mouth daily, fluoxetine 40 mg by mouth daily, heparin subcutaneous every 8 hours (I am changing it to subcutaneous every 12 hours.), labetalol 100 mg by mouth twice a day, Zofran 4 mg every 8 hours as needed nausea, Protonix 40 mg by mouth daily. ASSESSMENT: A 58-year-old male with acute kidney injury, high anion gap metabolic acidosis, hypertension, and history of cerebrovascular accident with left-sided weakness. PLAN: 1. High anion gap metabolic acidosis. It is secondary to combination of lactic acidosis and diabetic ketoacidosis. The patient's pH on ABG done yesterday was 7.2. No need of IV bicarbonate administration. Bicarbonate level is slowly improving. Acidosis should improve with treatment of diabetic ketoacidosis (DKA) as mentioned below. 2. Diabetic ketoacidosis. The patient has euglycemic diabetic ketoacidosis. His glucose level on arrival was 125. However, he had an anion gap of 30 with barely a lactic acid of 2.2. There were 1+ ketones in the urine. B-hydroxybutyrate is elevated at 25.6. Serum osmolality is 341. The patient is being transferred to intensive care unit (ICU). He will get IV insulin drip, and IV fluids are being switched to D5 half-normal saline at 150 mL/h. His anion gap acidosis has converted to non-anion gap acidosis because of IV fluid hydration. I will continue to monitor the b-hydroxybutyrate. Insulin drip will be stopped once the B-hydroxybutyrate within the normal limit. Then, it will be switched to subcutaneous insulin. 3. Acute renal failure. It is multifactorial secondary to diabetic ketoacidosis, use of lisinopril, hydrochlorothiazide, and metformin at home, dehydration secondary to diarrhea, and poor oral intake. Continue IV fluid hydration, as mentioned above. The patient's urine output is improving. There is no urgent need of hemodialysis at this time. I will continue to monitor intake and output. If the patient's renal function does not start improving over the next 24 hours, then I will consider doing hemodialysis in the patient. 4. Hyponatremia. It was secondary to hypovolemia. Sodium level is improving with normal saline hydration that was done on arrival. 5. Hyperphosphatemia. It is secondary to acute renal failure. Phosphorus level will improve with further improvement in the renal function. 6. Hypertension. Okay to continue home dose of amlodipine 10 mg daily, clonidine 0.2 mg by mouth twice a day, labetalol 100 mg by mouth twice a day. Blood pressures are within the acceptable limit. 7. History of cerebrovascular accident with left-sided hemiparesis. Blood pressure control is as mentioned above. Continue aspirin 81 mg daily, Plavix 75 mg daily, and atorvastatin 40 mg by mouth daily. Thank you for involving me in the care of this patient. I shall be happy to follow the patient along with you tomorrow morning. Plan of care was discussed with the primary hospitalist team, Dr. Flakita Somers, and with the patient's registered nurse (RN). The patient is being transferred to ICU now. Total critical care time spent in the management of this patient today afternoon in the progressive care unit (PCU) was 1 hour and 20 minutes. That does not include any procedures.
[2019-07-31 21:12] LABS: VENOUS BASE EXCESS -4.9 (-2.0-2.0); VENOUS HCO3 20.9 MEQ/L (23.0-27.0); VENOUS O2 SATURATION 98.7 % (60.0-80.0); VENOUS PARTIAL PRESSURE CO2 41.7 mmHg (38.0-50.0); VENOUS PARTIAL PRESSURE O2 143.8 mmHg (30.0-50.0); VENOUS PH 7.318 UNITS (7.330-7.430); VENOUS STANDARD HCO3 20.4 MEQ/L; VENOUS TOTAL CO2 22.2 MEQ/L (24.0-28.0)
[2019-07-31 21:47] LABS: ACETONE/KETONE 2.78 MG/DL (<2.81); ALBUMIN 2.9 GM/DL (3.2-5.2); CALCIUM LEVEL 7.8 MG/DL (8.5-10.1); CREATININE FOR GFR 12.8 MG/DL (0.70-1.30); GLOMERULAR FILTRATION RATE 4.3 (>56); PHOSPHORUS LEVEL 5.1 MG/DL (2.5-4.9); POTASSIUM SERUM 3.6 MEQ/L (3.5-5.1)
[2019-08-01] VITALS (12 sets, daily range): BP systolic 107–151; BP diastolic 51–77
[2019-08-01] MEDS: INSULIN IV RATE CHANGE DOCUMENTATION ML/HR XX SCH ×4 (00:17→07:10)
[2019-08-01 01:16] LABS: VENOUS BASE EXCESS -4.1 (-2.0-2.0); VENOUS HCO3 21.6 MEQ/L (23.0-27.0); VENOUS O2 SATURATION 98.5 % (60.0-80.0); VENOUS PARTIAL PRESSURE CO2 41.8 mmHg (38.0-50.0); VENOUS PARTIAL PRESSURE O2 148.7 mmHg (30.0-50.0); VENOUS PH 7.331 UNITS (7.330-7.430); VENOUS STANDARD HCO3 21.1 MEQ/L; VENOUS TOTAL CO2 22.9 MEQ/L (24.0-28.0)
[2019-08-01 01:48] LABS: CALCIUM LEVEL 7.7 MG/DL (8.5-10.1); CREATININE FOR GFR 12.3 MG/DL (0.70-1.30); GLOMERULAR FILTRATION RATE 4.5 (>56); PHOSPHORUS LEVEL 4.8 MG/DL (2.5-4.9); POTASSIUM SERUM 3.5 MEQ/L (3.5-5.1)
[2019-08-01] MEDS: D5W/0.45% SODIUM CHLORIDE 1,000 ML IV SCH (04:51)
[2019-08-01 05:06] LABS: VENOUS BASE EXCESS -3.9 (-2.0-2.0); VENOUS HCO3 20.6 MEQ/L (23.0-27.0); VENOUS O2 SATURATION 98.8 % (60.0-80.0); VENOUS PARTIAL PRESSURE CO2 35.7 mmHg (38.0-50.0); VENOUS PARTIAL PRESSURE O2 184.3 mmHg (30.0-50.0); VENOUS STANDARD HCO3 21.2 MEQ/L; VENOUS TOTAL CO2 21.7 MEQ/L (24.0-28.0)
[2019-08-01 05:15] LABS: HEMATOCRIT 28.2 % (42.0-52.0); HEMOGLOBIN 9.3 g/dl (13.5-17.5); MEAN CORPUSCULAR HEMOGLOBIN 27.4 pg (27.0-33.0); MEAN CORPUSCULAR VOLUME 83.2 fl (80.0-96.0); PLATELET COUNT, AUTOMATED 118 10^3/uL (150-450); RED BLOOD COUNT 3.39 10^6/uL (4.30-6.10); WHITE BLOOD COUNT 5.6 10^3/uL (4.0-10.0)
[2019-08-01 05:59] LABS: CALCIUM LEVEL 7.8 MG/DL (8.5-10.1); CREATININE FOR GFR 11.8 MG/DL (0.70-1.30); GLOMERULAR FILTRATION RATE 4.7 (>56); MAGNESIUM LEVEL 1.8 MG/DL (1.8-2.4); PHOSPHORUS LEVEL 4.8 MG/DL (2.5-4.9); POTASSIUM SERUM 3.3 MEQ/L (3.5-5.1)
[2019-08-01] MEDS: KCL 10MEQ/100ML SWI (KRUN) 10 MEQ in IV 1 EA IV SCH ×2 (07:31→08:46)
[2019-08-01] MEDS: LEVEMIR (INSULIN DETEMIR) 1 UNITS/0.01ML SC SCH (07:59)
[2019-08-01] MEDS ORDERED: POTASSIUM CHLORIDE 10 MEQ SR TABLET PO ONE (08:00)
[2019-08-01] MEDS: PANTOPRAZOLE 40MG TAB (PROTONIX) PO SCH (08:10)
[2019-08-01] MEDS: ASPIRIN 81 MG ENTERIC TAB PO SCH (08:10)
[2019-08-01] MEDS: cloNIDine 0.2 MG TAB PO SCH ×2 (08:10→21:31)
[2019-08-01] MEDS: amLODIPine 10 MG TAB PO SCH (08:10)
[2019-08-01] MEDS: ATORVASTATIN 20 MG TAB PO SCH (08:10)
[2019-08-01] MEDS: FLUoxetine 20 MG CAP PO SCH (08:11)
[2019-08-01] MEDS: CLOPIDOGREL 75 MG TAB PO SCH (08:11)
[2019-08-01] MEDS: KCL 20MEQ IN 0.45NS 1000ML 1,000 ML IV SCH (09:25)
[2019-08-01] MEDS: HEPARIN SOD (PORCINE) 5000 UNITS/ML VIAL SC SCH ×2 (10:48→21:30)
[2019-08-01] MEDS: LABETALOL 100 MG TAB PO SCH ×2 (10:50→21:30)
[2019-08-01] MEDS: HumaLOG INSULIN (NovoLOG) PER UNIT SC SCH ×2 (13:00→17:30)
--- NOTE | 2019-08-01 14:07 | IPNPDOC ---
Date Seen The patient was seen on 08/01/19. Progress Note HISTORY OF PRESENT ILLNESS: 58 y.o male w/ PMH of HTN, DM and CVA (residual L hemiparesis) presents to the emergency room with nausea, vomiting, diarrhea, and malaise for the past 5 days. He has not had similar symptoms in the past, denies anybody else at home with similar symptoms, denies sick contacts, reports very poor appetite for the past 5 days. In the ED he was found to have severe acute renal failure with a creatinine of 16, takes ROBYN inhibitor and hydrochlorothiazide along with metformin at home. He was straight cathed the ED with removal of 400 mL of urine. Labs are also suggestive of severe anion gap metabolic acidosis. He denies any shortness of breath, chest pain, abdominal pain, headache, or difficulty urinating at this time. 07/31/2019 No acute events, comfortable, without complaints, making large volume of urine but incontinent. 08/01/2019 Patient was taken off of the insulin drip this morning, patient reports no change, without complaints, comfortable, tolerating diet, will be downgraded to MedSurg. 10 point review of system was negative except for above ALLERGIES: Please see below. HOME MEDICATIONS: Please see below. PHYSICAL EXAMINATION: VITAL SIGNS: Please see below. GENERAL: No distress HEENT: Normocephalic, atraumatic, dry mucous membranes NECK: Supple CARDIOVASCULAR EXAMINATION: S1, S2, no murmurs RESPIRATORY EXAMINATION: Clear to auscultation, no wheezing ABDOMINAL EXAMINATION: Soft, nontender, nondistended, positive bowel sounds EXTREMITIES: LE edema L>R SKIN: No rash NEUROLOGICAL EXAMINATION: Alert and oriented 3, L sided weakness. PSYCHIATRIC EXAMINATION: Calm and cooperative LABORATORY DATA: See below. IMAGING: CT head negative for acute process MICROBIOLOGY: Please see below. ASSESSMENT: 28-year-old male with past medical history of hypertension, diabetes and CVA, admitted for acute renal failure and high anion gap acidosis, likely due to decreased by mouth intake and medications. . PLAN: 1. Acute renal failure. Likely due to dehydration, ROBYN inhibitor and hydrochlorothiazide, metformin. Creatinine improving, good urine output, continue gentle hydration, will monitor. No acute indications for hemodialysis. Nephrology following 2. Hypertension. Continue home meds with hold parameters. 3. CVA. Continue home aspirin, Plavix and statin. Based on PTs eval, patient will likely require rehabilitation placement, social work to arrange. 4. Diabetes mellitus. Hold metformin. Was admitted to the ICU due to concern for euglycemic DKA, remained on insulin drip for one day, now gap has closed, beta hydroxybutyrate levels normal, will downgraded to MedSurg on Levemir and sliding scale insulin. DVT prophylaxis: Heparin subcutaneous. GI prophylaxis: Not needed at this time VS, I&O, 24H, Fishbone Vital Signs/I&O Vital Signs Date Time Temp Pulse Resp B/P (MAP) Pulse Ox O2 Delivery O2 Flow Rate FiO2 08/01/19 10:50 72 131/61 08/01/19 10:49 14 98 08/01/19 08:05 2.0 08/01/19 08:01 98.0 07/30/19 14:46 Room Air I&O- Last 24 Hours up to 6 AM 08/01/19 06:00 Intake Total 4490.0 ml Output Total 1805 ml Balance 2685.0 ml Laboratory Data 24H LABS Laboratory Tests 2 07/31/19 14:53: Bedside Glucose (Misc Panel) 161H 07/31/19 16:06: Bedside Glucose (Misc Panel) 177H 07/31/19 17:06: Bedside Glucose (Misc Panel) 151H 07/31/19 18:02: Bedside Glucose (Misc Panel) 138H 07/31/19 19:06: Bedside Glucose (Misc Panel) 136H 07/31/19 20:22: Bedside Glucose (Misc Panel) 167H 07/31/19 21:02: Blood Gas Puncture Site UNKNOWN, Blood Gas Bicarbonate Standard 20.4, Venous Blood pH 7.318L, Venous Blood Partial Pressure CO2 41.7, Venous Blood Partial Pressure O2 143.8H, Venous Blood Total Carbon Dioxide 22.2L, Venous Blood HCO3 20.9L, Venous Blood Oxygen Saturation 98.7H, Venous Blood Base Excess -4.9L, Blood Urea Nitrogen 102H, Creatinine 12.80*H, Sodium Level 137, Potassium Level 3.6, Chloride Level 101, Carbon Dioxide Level 26, Anion Gap 10, Glomerular Filtration Rate 4.3L, Calcium Level 7.8L, Phosphorus Level 5.1H, Albumin 2.9L, B-Hydroxybutyrate 2.78 07/31/19 21:03: Bedside Glucose (Misc Panel) 146H 07/31/19 21:23: Osmolality 326H 07/31/19 22:06: Bedside Glucose (Misc Panel) 123H 07/31/19 23:06: Bedside Glucose (Misc Panel) 155H 08/01/19 00:14: Bedside Glucose (Misc Panel) 132H 08/01/19 01:08: Bedside Glucose (Misc Panel) 137H 08/01/19 01:09: Blood Gas Bicarbonate Standard 21.1, Venous Blood pH 7.331, Venous Blood Partial Pressure CO2 41.8, Venous Blood Partial Pressure O2 148.7H, Venous Blood Total Carbon Dioxide 22.9L, Venous Blood HCO3 21.6L, Venous Blood Oxygen Saturation 98.5H, Venous Blood Base Excess -4.1L, Anion Gap 14, Glomerular Filtration Rate 4.5L, Blood Urea Nitrogen 97H, Creatinine 12.30*H, Sodium Level 138, Potassium Level 3.5, Chloride Level 101, Carbon Dioxide Level 23, Calcium Level 7.7L, Phosphorus Level 4.8 08/01/19 02:18: Bedside Glucose (Misc Panel) 125H 08/01/19 03:03: Bedside Glucose (Misc Panel) 138H, Osmolality 322H 08/01/19 04:07: Bedside Glucose (Misc Panel) 131H 08/01/19 05:00: Blood Gas Puncture Site UNKNOWN, Blood Gas Bicarbonate Standard 21.2, Venous Blood pH 7.380, Venous Blood Partial Pressure CO2 35.7L, Venous Blood Partial Pressure O2 184.3H, Venous Blood Total Carbon Dioxide 21.7L, Venous Blood HCO3 20.6L, Venous Blood Oxygen Saturation 98.8H, Venous Blood Base Excess -3.9L, Anion Gap 13, Glomerular Filtration Rate 4.7L, Blood Urea Nitrogen 93H, Creatinine 11.80*H, Sodium Level 138, Potassium Level 3.3L, Chloride Level 101, Carbon Dioxide Level 24, Calcium Level 7.8L, Phosphorus Level 4.8, Magnesium Level 1.8 08/01/19 05:01: Nucleated Red Blood Cells % (auto) 0.0 08/01/19 05:07: Bedside Glucose (Misc Panel) 119H 08/01/19 06:20: Bedside Glucose (Misc Panel) 146H 08/01/19 07:08: Bedside Glucose (Misc Panel) 114H 08/01/19 08:01: Bedside Glucose (Misc Panel) 132H CBC/BMP Laboratory Tests 07/31/19 21:02 Anion Gap 10 08/01/19 01:09 Calcium Level 7.7 L 08/01/19 05:00 Calcium Level 7.8 L 08/01/19 05:01 Red Blood Count 3.39 L, Mean Corpuscular Volume 83.2, Mean Corpuscular H emoglobin 27.4, Mean Corpuscular Hemoglobin Concent 33.0, Red Cell Distribution Width 13.8 Microbiology Microbiology 07/31/19 Blood Culture, Received Pending 07/31/19 Urine Culture, Received Pending MICKEY HSU MD Aug 01, 2019 14:07
[2019-08-01] MEDS: CEFEPIME HCL 1 GM in D5W MINI-BAG PLUS 50 ML IV SCH (15:04)
[2019-08-02] MEDS: KCL 20MEQ IN 0.45NS 1000ML 1,000 ML IV SCH ×2 (00:40→18:08)
[2019-08-02 06:00] VITALS: BP 145/71
[2019-08-02 06:13] LABS: HEMATOCRIT 30.6 % (42.0-52.0); HEMOGLOBIN 10.4 g/dl (13.5-17.5); MEAN CORPUSCULAR HEMOGLOBIN 28.3 pg (27.0-33.0); MEAN CORPUSCULAR VOLUME 83.4 fl (80.0-96.0); PLATELET COUNT, AUTOMATED 120 10^3/uL (150-450); RED BLOOD COUNT 3.67 10^6/uL (4.30-6.10); WHITE BLOOD COUNT 5.8 10^3/uL (4.0-10.0)
[2019-08-02 06:39] LABS: ALBUMIN 2.8 GM/DL (3.2-5.2); BILIRUBIN,TOTAL 0.5 MG/DL (0.2-1.0); CALCIUM LEVEL 8.3 MG/DL (8.5-10.1); CREATININE FOR GFR 8.36 MG/DL (0.70-1.30); MAGNESIUM LEVEL 1.5 MG/DL (1.8-2.4); PHOSPHORUS LEVEL 3.6 MG/DL (2.5-4.9); POTASSIUM SERUM 3.8 MEQ/L (3.5-5.1); TOTAL PROTEIN 6.1 GM/DL (6.4-8.2)
[2019-08-02] MEDS: HumaLOG INSULIN (NovoLOG) PER UNIT SC SCH ×3 (07:30→18:02)
--- NOTE | 2019-08-02 07:50 | IPN ---
DATE OF SERVICE: 08/01/2019 SUBJECTIVE: The patient was seen and examined at the bedside today morning in the intensive care unit (ICU). Last 24-hour events were as noted. The patient was transferred to ICU yesterday because of the euglycemic diabetic ketoacidosis. He was given IV D5 half NS IV fluid was kept on the insulin drip. Acidosis is improving. Anion gap has closed. B-hydroxybutyrate level is improving so IV insulin drip was stopped today morning and the patient has been started on Levemir and insulin sliding scale with meals. The patient reports that he is feeling slightly better today as compared with yesterday. He still reports decreased appetite. He is otherwise afebrile and hemodynamically stable. OBJECTIVE: Vital signs: Temperature is 98 degree Fahrenheit, blood pressure 128/60, pulse is 58, respiratory rate of 14, saturating at 99% on 2 liters by nasal cannula. Intake and output - urine output recorded is 1.2 liters yesterday 1400 mL so far today since overnight. Weight in the bed scale is 96.1 kg. PHYSICAL EXAMINATION: General: The patient is awake, alert, oriented times two, lethargic and depressed laying in bed. No apparent distress. Head and neck exam extraocular muscles intact. Pupils equally round and reactive to light. Mucous membranes are moist. Neck is supple. There is no jugular venous distention (JVD). Cardiovascular: S1, S2, regular rate. No edema of the bilateral lower extremities. Respiratory: Decreased breath sounds at the bases, otherwise no active rales or rhonchi. Abdomen is soft, obese, positive bowel sounds. Nontender. No organomegaly. Musculoskeletal: No clubbing or cyanosis. Pulses are 2+. [employer] W[employer] ROOM: The patient has a depressed mood. Otherwise he follows commands and moves Rt upper and lower ext, Lt hemiparesis noted. LAB REVIEW: CBC showed a WBC 5.6, hemoglobin 9.3, platelets are 118. BMP showed sodium 138, potassium 3.3, chloride 101, bicarb 24, BUN 93, creatinine is 11.8, glucose is 134, calcium is 7.8, phosphorus 4.8, magnesium is 1.8. Microbiology - blood culture so far is negative. Urine culture is pending. CURRENT INPATIENT MEDICATIONS: The patient's medications were all reviewed by me. IV fluid has been changed to KCl 20 mEq in half-normal saline at 75 mL an hour. The patient continues to be on cefepime 1 gram IV daily. Insulin drip was stopped. The patient has been started on insulin Levemir 14 units subcu daily along with insulin sliding scale. The patient was also given a dose of potassium chloride 40 mEq by mouth times one dose. ASSESSMENT AND PLAN: 1. Diabetic ketoacidosis. The patient's ketoacidosis has improved B-hydroxybutyrate is within the normal limits. Anion gap is closed. He has been started on oral diet and insulin has been changed to subcu insulin. 2. Acute renal failure. It is multifactorial secondary to use of ROBYN inhibitors, thiazide, diuretics, metformin and recent a diabetic ketoacidosis. The patient is nonoliguric. Urine output is improving. Continue IV fluid hydration, but rate of fluid is further being decreased to 50 mL an hour. No urgent need of hemodialysis as labs are slowly improving. 3. Hypokalemia. It is secondary to use of dextrose and insulin for DKA. The patient was given oral potassium, potassium is also added in the IV fluids as well. 4. Hypertension. Okay to continue current dose of amlodipine, clonidine, labetalol. IV fluids are being decreased. 5. Disposition. it is okay to downgrade the patient out of ICU. Nephrology service will continue to monitor the patient. MTDD
[2019-08-02] MEDS: FLUoxetine 20 MG CAP PO SCH (08:47)
[2019-08-02] MEDS: ASPIRIN 81 MG ENTERIC TAB PO SCH (08:47)
[2019-08-02] MEDS: HEPARIN SOD (PORCINE) 5000 UNITS/ML VIAL SC SCH ×2 (08:47→22:41)
[2019-08-02] MEDS: PANTOPRAZOLE 40MG TAB (PROTONIX) PO SCH (08:47)
[2019-08-02] MEDS: ATORVASTATIN 20 MG TAB PO SCH (08:47)
[2019-08-02] MEDS: CLOPIDOGREL 75 MG TAB PO SCH (08:47)
[2019-08-02] MEDS: cloNIDine 0.2 MG TAB PO SCH ×2 (08:48→22:41)
[2019-08-02] MEDS: LABETALOL 100 MG TAB PO SCH ×2 (08:48→22:41)
[2019-08-02] MEDS: amLODIPine 10 MG TAB PO SCH (08:48)
[2019-08-02] MEDS: LEVEMIR (INSULIN DETEMIR) 1 UNITS/0.01ML SC SCH ×2 (08:49→09:00)
[2019-08-02] MEDS: ONDANSETRON 4MG/2ML VIAL (J2405) IV PRN (08:59)
[2019-08-02] MEDS ORDERED: FLUBLOK(EGG FREE)(QUAD)INFLUENZA VACC 0.5ML SYRINGE (90682)18YRS&OLDER IM ONE (09:00)
[2019-08-02] MEDS: MAG SULF 1GM/100ML (MAG RUN) 1 GM in IV 1 EA IV SCH ×3 (09:00→11:38)
[2019-08-02] MEDS ORDERED: FLUBLOK(EGG FREE)(QUAD)INFLUENZA VACC 0.5ML SYRINGE (90682)18YRS&OLDER IM SCH (09:00)
[2019-08-02] MEDS ORDERED: VANCOMYCIN INTERMITTENT/PULSE DOSING BY CLINICAL PHARMACIST PER DOSING PROTOCOL XX SCH (10:15)
--- NOTE | 2019-08-02 10:26 | PHACANCOPD ---
PHARMACY VANCOMYCIN DOSING Pt Demographics Demographics Patient Age:58 , Weight:96.100 , Gender: male Adjusted Body Weight Date: 08/02/19, Adjusted Body Weight: Kg Events Past 24 Hours Events Past 24 Hours: YES: Change in CrCl; NO: Dialysis, Diuretic Therapy, Fever, Elevation in WBC, Pending Diagnostics, Pending Procedures, Other Vancomycin Vancomycin Target Ranges: 15-20 mcg/ml Vancomycin Load Y/N: Yes Load Dose Date Time Vancomycin Load Dose: 1500MG Date: 08/02/19 Time: 1200 Vancomycin Dose Date: 08/02/19. Current Vancomycin Dose: Intermittent Dosing?: Yes Labs Labs Item Value Date Time White Blood Count 17.6 10^3/uL H 07/30/19 1137 White Blood Count 10.2 10^3/uL H 07/31/19 0520 White Blood Count 5.6 10^3/uL 08/01/19 0501 White Blood Count 5.8 10^3/uL 08/02/19 0519 Creatinine 12.30 MG/DL *H 08/01/19 0109 Creatinine 11.80 MG/DL *H 08/01/19 0500 Creatinine 8.36 MG/DL *H 08/02/19 0520 Micro Microbiology 07/31/19 Blood Culture - Preliminary, Resulted No growth after 24 hours . All specim... 07/31/19 Urine Culture - Final, Complete Staphylococcus Hominis Ssp Gayatri Creatinine Clearance Date:08/02/19. Creatinine Clearance: . Assessment and Plan Maintaining Current Dose?: Yes Reason for dose change: No Dose Change Pharmacist Note Pharmacist Note Date: 08/02/19. Pharmacist note: Pt. is a 58 year old male who presented to the ED in DKA and VIANEY. Baseline Scr is <1.0 and pt presented to the ED with SCr 16.10 which is slowly improving. I have loaded the patient with 1500mg IV Vanco and entered an intermittent comment. I have ordered a random for tomorrow AM. We will continue to follow and adjust dose as needed. JENARO PEACOCK PHARMACY Aug 02, 2019 10:26
[2019-08-02] MEDS ORDERED: VANCOMYCIN HCL 1,000 MG, VIAL MATE ADAPTER 1 EACH in D5W 250 ML IV ONE ×2 (11:00→13:00)
[2019-08-02] MEDS ORDERED: VANCOMYCIN HCL 500 MG in D5W MINI-BAG PLUS 100 ML IV ONE (12:00)
[2019-08-02 14:00] VITALS: BP 125/74
--- NOTE | 2019-08-02 14:08 | IPNPDOC ---
Date Seen The patient was seen on 08/02/19. Progress Note NEPHROLOGY SERVICE PROGRESS NOTE: SUBJECTIVE: Mr. Stearns is seen and examined at the bedside this morning. He was talking on his phone and he seems to be in better spirits today. He has no complaints. He was evaluated by speech therapy for his swallowing issues and was put on a modified diet. He otherwise appears stable. OBJECTIVE PHYSICAL EXAMINATION: VITAL SIGNS: Please see below. GENERAL APPEARANCE: laying in bed, appearing stated age and in no acute distress HEENT: EOMI, PERRLA; neck is supple with no lymphadenopathy or thyromegaly RESPIRATORY: clear to auscultation bilaterally, otherwise no adventitious breath sounds can be heard CARDIOVASCULAR: RRR, without any murmurs/rubs/gallops ABDOMEN: soft, nontender to palpation without any organomegaly or masses, +BS EXTREMITIES: no lower extremity edema, no clubbing or cyanosis otherwise NEUROLOGICAL: Left sided hemiparesis is noted PSYCHIATRIC: normal mood, normal affect LABORATORY DATA, IMAGING STUDIES, MICROBIOLOGY: Please see below. ASSESSMENT AND PLAN: This is a 58 YO M with history of euglycemic ketoacidosis found to be in acute renal failure. PROBLEMS: 1. DM Type2,Insulin dependent: -Patient is s/p insulin drip and DKA has resolved. -He may now eat a normal diet provided he is able to tolerate meals and adheres to speech therapy recommendations. He has been encouraged to eat more of his meals and drink more fluids as he states he does not have an appetite. 2. Acute renal failure: most likely 2/2 use of ACEi, thiazides, diuretics, metformin and DKA. -Cr has improved to 8.36 from 11.8 yesterday -He is producing urine--almost 3L output yesterday -Fluids can be continued for the time being but oral intake of fluids should be encouraged. 3. Hypokalemia: 2/2 insulin -K is 3.8 today. Appears to have resolved -s/p potassium replacement 4. HTN: -Continue Amlodipine, Clonidine, Labetalol 5. UTI: -Patient grew Staph hominis in his urine. Vancomycin started 2/2 susceptibilities. Dispo: pending clinical improvement. We will continue to monitor his progress. VS, I&O, 24H, Fishbone Vital Signs/I&O Vital Signs Date Time Temp Pulse Resp B/P (MAP) Pulse Ox O2 Delivery O2 Flow Rate FiO2 08/02/19 08:48 138/70 08/02/19 06:00 98.0 65 18 96 08/01/19 08:05 2.0 07/30/19 14:46 Room Air I&O- Last 24 Hours up to 6 AM 08/02/19 06:00 Intake Total 2242.5 ml Output Total 3125 ml Balance -882.5 ml Laboratory Data 24H LABS Laboratory Tests 2 08/02/19 05:19: Nucleated Red Blood Cells % (auto) 0.0 08/02/19 05:20: Anion Gap 10, Glomerular Filtration Rate 7.0L, Blood Urea Nitrogen 76H, Creatinine 8.36*H, Sodium Level 139, Potassium Level 3.8, Chloride Level 105, Carbon Dioxide Level 24, Calcium Level 8.3L, Phosphorus Level 3.6#, Aspartate Amino Transf (AST/SGOT) 13, Alanine Aminotransferase (ALT/SGPT) 13, Alkaline Phosphatase 76, Total Bilirubin 0.5, Total Protein 6.1L, Albumin 2.8L, Magnesium Level 1.5L, Albumin/Globulin Ratio 0.85L 08/02/19 11:42: Bedside Glucose (Misc Panel) 147H CBC/BMP Laboratory Tests 08/02/19 05:19 Red Blood Count 3.67 L, Mean Corpuscular Volume 83.4, Mean Corpuscular Hemoglobin 28.3, Mean Corpuscular Hemoglobin Concent 34.0, Red Cell Distribution Width 13.6 08/02/19 05:20 Calcium Level 8.3 L, Phosphorus Level 3.6 #, Aspartate Amino Transf (AST/SGOT) 13, Alanine Aminotransferase (ALT/SGPT) 13, Alkaline Phosphatase 76, Total Bilirubin 0.5, Total Protein 6.1 L, Albumin 2.8 L Microbiology Microbiology 07/31/19 Blood Culture - Preliminary, Resulted No growth after 24 hours . All specim... 07/31/19 Urine Culture - Final, Complete Staphylococcus Hominis Ssp Gayatri GME ATTESTATION GME ATTESTATION My faculty preceptor for this patient encounter was physically present during the encounter and was fully available. All aspects of the patient interview, examination, medical decision making process, and medical care plan development were reviewed and approved by the faculty preceptor. The faculty preceptor is aware and concurs with the plan as stated in the body of this note and will attest to such by his/her cosignature. JESSICA MANE MD Aug 02, 2019 14:08 SRINIVAS SANTANA MD Aug 03, 2019 12:21
--- NOTE | 2019-08-02 17:36 | IPNPDOC ---
Date Seen The patient was seen on 08/02/19. Progress Note HISTORY OF PRESENT ILLNESS: 58 y.o male w/ PMH of HTN, DM and CVA (residual L hemiparesis) presents to the emergency room with nausea, vomiting, diarrhea, and malaise for the past 5 days. He has not had similar symptoms in the past, denies anybody else at home with similar symptoms, denies sick contacts, reports very poor appetite for the past 5 days. In the ED he was found to have severe acute renal failure with a creatinine of 16, takes ROBYN inhibitor and hydrochlorothiazide along with metformin at home. He was straight cathed the ED with removal of 400 mL of urine. Labs are also suggestive of severe anion gap metabolic acidosis. He denies any shortness of breath, chest pain, abdominal pain, headache, or difficulty urinating at this time. 07/31/2019 No acute events, comfortable, without complaints, making large volume of urine but incontinent. 08/01/2019 Patient was taken off of the insulin drip this morning, patient reports no change, without complaints, comfortable, tolerating diet, will be downgraded to MedSurg. 08/02/2019 Patient back to [facility], reports mild nausea, no other complaints at this time. He continues to have good urine output, creatinine improving every day. He denies any shortness of breath, chest pain, vomiting, diarrhea or abdominal pain. 10 point review of system was negative except for above ALLERGIES: Please see below. HOME MEDICATIONS: Please see below. PHYSICAL EXAMINATION: VITAL SIGNS: Please see below. GENERAL: No distress HEENT: Normocephalic, atraumatic, dry mucous membranes NECK: Supple CARDIOVASCULAR EXAMINATION: S1, S2, no murmurs RESPIRATORY EXAMINATION: Clear to auscultation, no wheezing ABDOMINAL EXAMINATION: Soft, nontender, nondistended, positive bowel sounds EXTREMITIES: LE edema L>R SKIN: No rash NEUROLOGICAL EXAMINATION: Alert and oriented 3, L sided weakness. PSYCHIATRIC EXAMINATION: Calm and cooperative LABORATORY DATA: See below. IMAGING: CT head negative for acute process MICROBIOLOGY: Please see below. ASSESSMENT: 58-year-old male with past medical history of hypertension, diabetes and CVA, admitted for acute renal failure and high anion gap acidosis, likely due to decreased by mouth intake and medications. . PLAN: 1. Acute renal failure. Likely due to dehydration, ROBYN inhibitor and hydrochlorothiazide, metformin. Creatinine improving, good urine output, continue gentle hydration, will mo nitor. No acute indications for hemodialysis. Nephrology following. Mendoza removed 2. Hypertension. Continue home meds with hold parameters. 3. CVA. Continue home aspirin, Plavix and statin. PT following, disposition pending on patient's progress during hospitalization. 4. Diabetes mellitus. Hold metformin. Was admitted to the ICU due to concern for euglycemic DKA, remained on insulin drip for one day, now gap has closed, beta hydroxybutyrate levels normal, downgraded to MedSurg on Levemir and sliding scale insulin. DVT prophylaxis: Heparin subcutaneous. GI prophylaxis: Not needed at this time VS, I&O, 24H, Fishbone Vital Signs/I&O Vital Signs Date Time Temp Pulse Resp B/P (MAP) Pulse Ox O2 Delivery O2 Flow Rate FiO2 08/02/19 14:00 98.0 70 16 125/74 (91) 97 08/01/19 08:05 2.0 07/30/19 14:46 Room Air I&O- Last 24 Hours up to 6 AM 08/02/19 06:00 Intake Total 2242.5 ml Output Total 3125 ml Balance -882.5 ml Laboratory Data 24H LABS Laboratory Tests 2 08/02/19 05:19: Nucleated Red Blood Cells % (auto) 0.0 08/02/19 05:20: Anion Gap 10, Glomerular Filtration Rate 7.0L, Blood Urea Nitrogen 76H, Creatinine 8.36*H, Sodium Level 139, Potassium Level 3.8, Chloride Level 105, Carbon Dioxide Level 24, Calcium Level 8.3L, Phosphorus Level 3.6#, Aspartate Amino Transf (AST/SGOT) 13, Alanine Aminotransferase (ALT/SGPT) 13, Alkaline Phosphatase 76, Total Bilirubin 0.5, Total Protein 6.1L, Albumin 2.8L, Magnesium Level 1.5L, Albumin/Globulin Ratio 0.85L 08/02/19 11:42: Bedside Glucose (Misc Panel) 147H 08/02/19 16:38: Bedside Glucose (Misc Panel) 153H CBC/BMP Laboratory Tests 08/02/19 05:19 Red Blood Count 3.67 L, Mean Corpuscular Volume 83.4, Mean Corpuscular Hemoglobin 28.3, Mean Corpuscular Hemoglobin Concent 34.0, Red Cell Distribution Width 13.6 08/02/19 05:20 Calcium Level 8.3 L, Phosphorus Level 3.6 #, Aspartate Amino Transf (AST/SGOT) 13, Alanine Aminotransferase (ALT/SGPT) 13, Alkaline Phosphatase 76, Total Bilirubin 0.5, Total Protein 6.1 L, Albumin 2.8 L Microbiology Microbiology 07/31/19 Blood Culture - Preliminary, Resulted No Growth after 48 hours. All Specime... 07/31/19 Urine Culture - Final, Complete Staphylococcus Hominis Ssp Gayatri MICKEY HSU MD Aug 02, 2019 17:36
[2019-08-02 18:57] LABS: PHOSPHORUS LEVEL 2.9 MG/DL (2.5-4.9)
[2019-08-02 21:45] VITALS: BP 158/82
[2019-08-02] MEDS ORDERED: ACETAMINOPHEN TAB 650MG DOSE (2X325MG) PO ONE (22:15)
[2019-08-02 22:20] VITALS: BP 181/86
[2019-08-02 23:30] VITALS: BP 127/67
[2019-08-03 05:55] LABS: HEMATOCRIT 29.9 % (42.0-52.0); HEMOGLOBIN 10.1 g/dl (13.5-17.5); MEAN CORPUSCULAR HGB CONC 33.8 g/dl (32.0-36.5); MEAN CORPUSCULAR VOLUME 82.8 fl (80.0-96.0); RED BLOOD COUNT 3.61 10^6/uL (4.30-6.10); WHITE BLOOD COUNT 6.2 10^3/uL (4.0-10.0)
[2019-08-03 06:00] VITALS: BP 140/74
[2019-08-03 06:16] LABS: PLATELET COUNT, AUTOMATED 105 10^3/uL (150-450)
[2019-08-03 06:23] LABS: ALBUMIN 2.6 GM/DL (3.2-5.2); BILIRUBIN,TOTAL 0.4 MG/DL (0.2-1.0); CREATININE FOR GFR 4.97 MG/DL (0.70-1.30); GLOMERULAR FILTRATION RATE 12.8 (>56); POTASSIUM SERUM 3.6 MEQ/L (3.5-5.1); TOTAL PROTEIN 5.7 GM/DL (6.4-8.2)
--- NOTE | 2019-08-03 06:55 | PHACANCOPD ---
PHARMACY VANCOMYCIN DOSING Pt Demographics Demographics Patient Age:58 , Weight:96.100 , Gender: male Adjusted Body Weight Date: 08/02/19, Adjusted Body Weight: [83.62] Kg Vancomycin Vancomycin Target Ranges: 15-20 mcg/ml Vancomycin Load Y/N: Yes Load Dose Date Time Vancomycin Load Dose: 1500MG Date: 08/02/19 Time: 1200 Vancomycin Dose Date: 08/02/19. Current Vancomycin Dose: Intermittent Dosing?: Yes Labs Micro Microbiology 07/31/19 Blood Culture - Preliminary, Resulted No Growth after 48 hours. All Specime... 07/31/19 Urine Culture - Final, Complete Staphylococcus Hominis Ssp Gayatri Creatinine Clearance Date:08/02/19. Creatinine Clearance: [18.9]CALCULATED. Assessment and Plan Maintaining Current Dose?: Yes Reason for dose change: No Dose Change Pharmacist Note Pharmacist Note Date: 08/03/19. Pharmacist note:Random Vancomycin level drawn this morning@ 5:16=15.0. SCR=4.97, Calculated CRCL=18.9.Patient currently on Intermittent Vancomycin Protocol. Will Give Vanco 1 gram IV this morning@0800 and schedule random draw for tomorrow.-will continue to follow Date: 08/02/19. Pharmacist note: Pt. is a 58 year old male who presented to the ED in DKA and VIANEY. Baseline Scr is <1.0 and pt presented to the ED with SCr 16.10 which is slowly improving. I have loaded the patient with 1500mg IV Vanco and entered an intermittent comment. I have ordered a random for tomorrow AM. We will continue to follow and adjust dose as needed. ANDRESSA MARTINES PHARMACY Aug 03, 2019 06:55
[2019-08-03] MEDS: HumaLOG INSULIN (NovoLOG) PER UNIT SC SCH ×3 (07:30→17:30)
[2019-08-03] MEDS ORDERED: VANCOMYCIN HCL 1,000 MG, VIAL MATE ADAPTER 1 EACH in D5W 250 ML IV ONE (08:00)
[2019-08-03] MEDS: LEVEMIR (INSULIN DETEMIR) 1 UNITS/0.01ML SC SCH ×2 (09:00→13:17)
[2019-08-03] MEDS ORDERED: POTASSIUM CHLORIDE 10 MEQ SR TABLET PO ONE (09:00)
[2019-08-03] MEDS: HEPARIN SOD (PORCINE) 5000 UNITS/ML VIAL SC SCH ×2 (09:57→20:49)
[2019-08-03] MEDS: FLUoxetine 20 MG CAP PO SCH (09:57)
[2019-08-03] MEDS: ASPIRIN 81 MG ENTERIC TAB PO SCH (09:58)
[2019-08-03] MEDS: LABETALOL 100 MG TAB PO SCH ×2 (09:59→20:48)
[2019-08-03] MEDS: amLODIPine 10 MG TAB PO SCH (09:59)
[2019-08-03] MEDS: PANTOPRAZOLE 40MG TAB (PROTONIX) PO SCH (10:00)
[2019-08-03] MEDS: CLOPIDOGREL 75 MG TAB PO SCH (10:01)
[2019-08-03] MEDS: cloNIDine 0.2 MG TAB PO SCH ×2 (10:01→20:48)
[2019-08-03] MEDS: ATORVASTATIN 20 MG TAB PO SCH (10:02)
--- NOTE | 2019-08-03 11:42 | IPNPDOC ---
Date Seen The patient was seen on 08/03/19. Progress Note NEPHROLOGY SERVICE PROGRESS NOTE: SUBJECTIVE: Mr. Stearns is seen and examined at the bedside this morning. He has no complaints. Both the patient and nursing report that he has been drinking quite a lot but has no appetite and has only been eating minimal amounts. He was encouraged to drink fluids by mouth and to eat more. Otherwise, no other issues reported and patient has no complaints. OBJECTIVE PHYSICAL EXAMINATION: VITAL SIGNS: Please see below. GENERAL APPEARANCE: sitting up at the bedside, appearing stated age and in no acute distress HEENT: EOMI, PERRLA; neck is supple with no lymphadenopathy or thyromegaly RESPIRATORY: clear to auscultation bilaterally, otherwise no adventitious breath sounds can be heard CARDIOVASCULAR: RRR, without any murmurs/rubs/gallops ABDOMEN: soft, nontender to palpation without any organomegaly or masses, +BS EXTREMITIES: no lower extremity edema, no clubbing or cyanosis otherwise NEUROLOGICAL: Left sided hemiparesis is noted PSYCHIATRIC: normal mood, normal affect LABORATORY DATA, IMAGING STUDIES, MICROBIOLOGY: Please see below. ASSESSMENT AND PLAN: This is a 58 YO M with history of euglycemic ketoacidosis found to be in acute renal failure. PROBLEMS: 1. DM Type2,Insulin Dependent: -Patient is s/p insulin drip for DKA. -Cont Levemir and ISS. Avoid use of Metformin 2. Acute renal failure: most likely 2/2 use of ACEi, thiazides, diuretics, metformin and DKA. -Cr has improved to 4.97 from 8.3 yesterday -2.5L urine production yesterday -d/c IVF 3. Hypokalemia: 2/2 insulin -K is 3.6 today. Resolved. -No need of oral or IV K. 4. HTN: -Continue Amlodipine, Clonidine, Labetalol 5. UTI: -Patient grew Staph hominis in his urine. Vancomycin started 2/2 susceptibilities. Dispo: pending clinical improvement. We will continue to monitor his progress. VS, I&O, 24H, Fishbone Vital Signs/I&O Vital Signs Date Time Temp Pulse Resp B/P (MAP) Pulse Ox O2 Delivery O2 Flow Rate FiO2 08/03/19 09:59 76 121/70 08/03/19 06:00 98.9 18 95 08/01/19 08:05 2.0 07/30/19 14:46 Room Air I&O- Last 24 Hours up to 6 AM 08/03/19 06:00 Intake Total 2775 ml Output Total 1650 ml Balance 1125 ml Laboratory Data 24H LABS Laboratory Tests 2 08/02/19 11:42: Bedside Glucose (Misc Panel) 147H 08/02/19 16:38: Bedside Glucose (Misc Panel) 153H 08/02/19 18:12: Phosphorus Level 2.9, Magnesium Level 2.0 08/02/19 20:42: Bedside Glucose (Misc Panel) 146H 08/02/19 23:27: Bedside Glucose (Misc Panel) 121H 08/03/19 05:16: Nucleated Red Blood Cells % (auto) 0.0, Anion Gap 9, Glomerular Filtration Rate 12.8L, Calcium Level 8.0L, Total Bilirubin 0.4, Aspartate Amino Transf (AST/SGOT) 21, Alanine Aminotransferase (ALT/SGPT) 22, Alkaline Phosphatase 79, Total Protein 5.7L, Albumin 2.6L, Albumin/Globulin Ratio 0.84L, Random Vancomycin Level 15.0 CBC/BMP Laboratory Tests 08/03/19 05:16 Microbiology Microbiology 07/31/19 Blood Culture - Preliminary, Resulted No Growth after 48 hours. All Specime... 07/31/19 Urine Culture - Final, Complete Staphylococcus Hominis Ssp Gayatri GME ATTESTATION GME ATTESTATION My faculty preceptor for this patient encounter was physically present during the encounter and was fully available. All aspects of the patient interview, examination, medical decision making process, and medical care plan development were reviewed and approved by the faculty preceptor. The faculty preceptor is aware and concurs with the plan as stated in the body of this note and will attest to such by his/her cosignature. JESSICA MANE MD Aug 03, 2019 11:42 SRINIVAS SANTANA MD Aug 03, 2019 12:34
[2019-08-03] MEDS ORDERED: KCL 10MEQ/100ML SWI (KRUN) 10 MEQ in IV 1 EA IV SCH (12:00)
[2019-08-03 14:00] VITALS: BP 128/67
--- NOTE | 2019-08-03 16:18 | IPNPDOC ---
Date Seen The patient was seen on 08/03/19. Progress Note HISTORY OF PRESENT ILLNESS: 58 y.o male w/ PMH of HTN, DM and CVA (residual L hemiparesis) presents to the emergency room with nausea, vomiting, diarrhea, and malaise for the past 5 days. He has not had similar symptoms in the past, denies anybody else at home with similar symptoms, denies sick contacts, reports very poor appetite for the past 5 days. In the ED he was found to have severe acute renal failure with a creatinine of 16, takes ROBYN inhibitor and hydrochlorothiazide along with metformin at home. He was straight cathed the ED with removal of 400 mL of urine. Labs are also suggestive of severe anion gap metabolic acidosis. He denies any shortness of breath, chest pain, abdominal pain, headache, or difficulty urinating at this time. 07/31/2019 No acute events, comfortable, without complaints, making large volume of urine but incontinent. 08/01/2019 Patient was taken off of the insulin drip this morning, patient reports no change, without complaints, comfortable, tolerating diet, will be downgraded to MedSurg. 08/02/2019 Patient back to [facility], reports mild nausea, no other complaints at this time. He continues to have good urine output, creatinine improving every day. He denies any shortness of breath, chest pain, vomiting, diarrhea or abdominal pain. 08/03/2019 Patient comfortable in chair, reports fatigue, nausea has resolved, no other complaints. He continues to have good urine output, tolerating by mouth, worked with physical therapy who recommend rehabilitation placement. 10 point review of system was negative except for above ALLERGIES: Please see below. HOME MEDICATIONS: Please see below. PHYSICAL EXAMINATION: VITAL SIGNS: Please see below. GENERAL: No distress HEENT: Normocephalic, atraumatic, dry mucous membranes NECK: Supple CARDIOVASCULAR EXAMINATION: S1, S2, no murmurs RESPIRATORY EXAMINATION: Clear to auscultation, no wheezing ABDOMINAL EXAMINATION: Soft, nontender, nondistended, positive bowel sounds EXTREMITIES: LE edema L>R SKIN: No rash NEUROLOGICAL EXAMINATION: Alert and oriented 3, L sided weakness. PSYCHIATRIC EXAMINATION: Calm and cooperative LABORATORY DATA: See below. IMAGING: CT head negative for acute process MICROBIOLOGY: Please see below. ASSESSMENT: 58-year-old male with past medical history of hypertension, diabetes and CVA, admitted for acute renal failure and high anion gap acidosis, likely due to decreased by mouth intake and medications. . PLAN: 1. Acute renal failure. Likely due to dehydration, ROBYN inhibitor and hydrochlorothiazide, metformin. Creatinine improving, good urine output, continue gentle hydration, will monitor. Nephrology following. Mendoza removed 2. Hypertension. Continue home meds with hold parameters. 3. CVA. Continue home aspirin, Plavix and statin. PT following, will require placement upon discharge. 4. Diabetes mellitus. Hold metformin. Was admitted to the ICU due to concern for euglycemic DKA, remained on insulin drip for one day, now gap has closed, beta hydroxybutyrate levels normal, downgraded to MedSurg on Levemir and sliding scale insulin. DVT prophylaxis: Heparin subcutaneous. GI prophylaxis: Not needed at this time VS, I&O, 24H, Fishbone Vital Signs/I&O Vital Signs Date Time Temp Pulse Resp B/P (MAP) Pulse Ox O2 Delivery O2 Flow Rate FiO2 08/03/19 14:00 97.5 91 16 128/67 (87) 96 08/01/19 08:05 2.0 07/30/19 14:46 Room Air I&O- Last 24 Hours up to 6 AM 08/03/19 06:00 Intake Total 2775 ml Output Total 1650 ml Balance 1125 ml Laboratory Data 24H LABS Laboratory Tests 2 08/02/19 16:38: Bedside Glucose (Misc Panel) 153H 08/02/19 18:12: Phosphorus Level 2.9, Magnesium Level 2.0 08/02/19 20:42: Bedside Glucose (Misc Panel) 146H 08/02/19 23:27: Bedside Glucose (Misc Panel) 121H 08/03/19 05:16: Nucleated Red Blood Cells % (auto) 0.0, Anion Gap 9, Glomerular Filtration Rate 12.8L, Calcium Level 8.0L, Total Bilirubin 0.4, Aspartate Amino Transf (AST/SGOT) 21, Alanine Aminotransferase (ALT/SGPT) 22, Alkaline Phosphatase 79, Total Protein 5.7L, Albumin 2.6L, Albumin/Globulin Ratio 0.84L, Random Vancomycin Level 15.0 08/03/19 11:48: Bedside Glucose (Misc Panel) 174H CBC/BMP Laboratory Tests 08/03/19 05:16 Microbiology Microbiology 07/31/19 Blood Culture - Preliminary, Resulted No Growth after 72 hours. All specime... 07/31/19 Urine Culture - Final, Complete Staphylococcus Hominis Ssp Gayatri MICKEY HSU MD Aug 03, 2019 16:18
[2019-08-03 16:34] LABS: MAGNESIUM LEVEL 1.6 MG/DL (1.8-2.4); PHOSPHORUS LEVEL 2.5 MG/DL (2.5-4.9)
[2019-08-03 22:00] VITALS: BP 149/83
[2019-08-04 06:00] VITALS: BP 150/76
[2019-08-04 06:12] LABS: HEMATOCRIT 28.3 % (42.0-52.0); HEMOGLOBIN 9.6 g/dl (13.5-17.5); MEAN CORPUSCULAR HEMOGLOBIN 27.8 pg (27.0-33.0); MEAN CORPUSCULAR HGB CONC 33.9 g/dl (32.0-36.5); PLATELET COUNT, AUTOMATED 106 10^3/uL (150-450); RED BLOOD COUNT 3.45 10^6/uL (4.30-6.10); WHITE BLOOD COUNT 7.3 10^3/uL (4.0-10.0)
[2019-08-04 06:33] LABS: CALCIUM LEVEL 8.4 MG/DL (8.5-10.1); CREATININE FOR GFR 3.1 MG/DL (0.70-1.30); GLOMERULAR FILTRATION RATE 22.1 (>56); POTASSIUM SERUM 3.4 MEQ/L (3.5-5.1)
[2019-08-04] MEDS: HumaLOG INSULIN (NovoLOG) PER UNIT SC SCH ×3 (07:30→17:30)
[2019-08-04] MEDS ORDERED: VANCOMYCIN HCL 1,000 MG, VIAL MATE ADAPTER 1 EACH in D5W 250 ML IV SCH (08:00)
[2019-08-04 08:53] LABS: FREE T4 1.21 NG/DL (0.76-1.46); MAGNESIUM LEVEL 1.4 MG/DL (1.8-2.4)
[2019-08-04] MEDS ORDERED: KCL 10MEQ/100ML SWI (KRUN) 10 MEQ in IV 1 EA IV SCH (09:00)
[2019-08-04] MEDS ORDERED: POTASSIUM CHLORIDE 10% LIQ 20 MEQ/15 ML UDC PO ONE (09:00)
[2019-08-04 09:46] LABS: HEMOGLOBIN A1c 6.5 %
[2019-08-04] MEDS: ASPIRIN 81 MG ENTERIC TAB PO SCH (09:52)
[2019-08-04] MEDS: FLUoxetine 20 MG CAP PO SCH (09:52)
[2019-08-04] MEDS: ATORVASTATIN 20 MG TAB PO SCH (09:52)
[2019-08-04] MEDS: CLOPIDOGREL 75 MG TAB PO SCH (09:53)
[2019-08-04] MEDS: LABETALOL 100 MG TAB PO SCH ×2 (09:53→20:09)
[2019-08-04] MEDS: PANTOPRAZOLE 40MG TAB (PROTONIX) PO SCH (09:53)
[2019-08-04] MEDS: amLODIPine 10 MG TAB PO SCH (09:54)
[2019-08-04] MEDS: cloNIDine 0.2 MG TAB PO SCH ×2 (09:54→20:09)
[2019-08-04] MEDS: HEPARIN SOD (PORCINE) 5000 UNITS/ML VIAL SC SCH ×2 (09:54→20:08)
[2019-08-04] MEDS: LEVEMIR (INSULIN DETEMIR) 1 UNITS/0.01ML SC SCH (11:09)
--- NOTE | 2019-08-04 11:29 | IPNPDOC ---
Date Seen The patient was seen on 08/04/19. Progress Note NEPHROLOGY SERVICE PROGRESS NOTE: SUBJECTIVE: Mr. Stearns is seen and examined at the bedside this morning. He has no complaints. No urine output was recorded overnight (?) but it was recorded that he drank almost 3L of fluid. He tells us he has better appetite this morning. No other issues. OBJECTIVE PHYSICAL EXAMINATION: VITAL SIGNS: Please see below. GENERAL APPEARANCE: sitting up at the bedside, appearing stated age and in no acute distress HEENT: EOMI, PERRLA; neck is supple with no lymphadenopathy or thyromegaly RESPIRATORY: clear to auscultation bilaterally, otherwise no adventitious breath sounds can be heard CARDIOVASCULAR: no JVD, RRR, without any murmurs/rubs/gallops ABDOMEN: soft, nontender to palpation without any organomegaly or masses, +BS EXTREMITIES: no lower extremity edema, no clubbing or cyanosis otherwise NEUROLOGICAL: Left sided hemiparesis is noted PSYCHIATRIC: normal mood, normal affect LABORATORY DATA, IMAGING STUDIES, MICROBIOLOGY: Please see below. ASSESSMENT AND PLAN: This is a 58 YO M with history of euglycemic ketoacidosis found to be in acute renal failure. PROBLEMS: 1. DM Type 2,Insulin Dependent: -Patient is s/p insulin drip for suspected DKA. -Cont Levemir and ISS. Avoid use of Metformin -HgbA1c found to be 6.5%. Less likely DKA, rather starvation ketosis that caused his anion gap metabolic acidosis. 2. Acute renal failure: most likely 2/2 use of ACEi, thiazides, diuretics, metformin and ketoacidosis -Cr has improved to 3.1 from 4.9 yesterday -We believe he is making good urine -s/p IVF 3. Hypokalemia: 2/2 insulin -K is 3.4 today. -Potassium Chloride replacement ordered 4. Hypomagnesemia: -Mg 1.4 today -Magnesium ordered 4. HTN: -Continue Amlodipine, Clonidine, Labetalol 5. UTI: -Patient grew Staph hominis in his urine. Vancomycin started 2/2 susceptibilities. Dispo: pending clinical improvement. We will continue to monitor his progress. VS, I&O, 24H, Fishbone Vital Signs/I&O Vital Signs Date Time Temp Pulse Resp B/P (MAP) Pulse Ox O2 Delivery O2 Flow Rate FiO2 08/04/19 09:53 78 134/67 08/04/19 06:00 98.6 18 97 08/01/19 08:05 2.0 07/30/19 14:46 Room Air I&O- Last 24 Hours up to 6 AM 08/04/19 06:00 Intake Total 3228 ml Output Total 0 ml Balance 3228 ml Laboratory Data 24H LABS Laboratory Tests 2 08/03/19 11:48: Bedside Glucose (Misc Panel) 174H 08/03/19 16:54: Bedside Glucose (Misc Panel) 97 08/03/19 20:39: Bedside Glucose (Misc Panel) 94 08/04/19 05:22: Estimated Mean Plasma Glucose 140H, Hemoglobin A1c 6.5 08/04/19 05:27: Nucleated Red Blood Cells % (auto) 0.0, Anion Gap 6L, Glomerular Filtration Rate 22.1L, Calcium Level 8.4L, Magnesium Level 1.4L, Free Thyroxine 1.21, Random Vancomycin Level 17.0 CBC/BMP Laboratory Tests 08/04/19 05:27 Microbiology Microbiology 07/31/19 Blood Culture - Preliminary, Resulted No Growth after 72 hours. All specime... 07/31/19 Urine Culture - Final, Complete Staphylococcus Hominis Ssp Gayatri GME ATTESTATION GME ATTESTATION My faculty preceptor for this patient encounter was physically present during the encounter and was fully available. All aspects of the patient interview, examination, medical decision making process, and medical care plan development were reviewed and approved by the faculty preceptor. The faculty preceptor is aware and concurs with the plan as stated in the body of this note and will attest to such by his/her cosignature. JESSICA MANE MD Aug 04, 2019 11:29
[2019-08-04] MEDS: MAG SULF 1GM/100ML (MAG RUN) 1 GM in IV 1 EA IV SCH ×4 (12:06→15:55)
[2019-08-04] MEDS: MIRALAX *UNIT DOSE* 17GM PACKET PO SCH (12:17)
[2019-08-04] MEDS: K-PHOS NEUTRAL 250MG TABLET (SOD.PHOSPHATE/POT.PHOSPHATE) PO SCH ×2 (12:18→15:55)
[2019-08-04 14:00] VITALS: BP 122/68
--- NOTE | 2019-08-04 14:40 | IPNPDOC ---
Date Seen The patient was seen on 08/04/19. Progress Note HISTORY OF PRESENT ILLNESS: 58 y.o male w/ PMH of HTN, DM and CVA (residual L hemiparesis) presents to the emergency room with nausea, vomiting, diarrhea, and malaise for the past 5 days. He has not had similar symptoms in the past, denies anybody else at home with similar symptoms, denies sick contacts, reports very poor appetite for the past 5 days. In the ED he was found to have severe acute renal failure with a creatinine of 16, takes ROBYN inhibitor and hydrochlorothiazide along with metformin at home. He was straight cathed the ED with removal of 400 mL of urine. Labs are also suggestive of severe anion gap metabolic acidosis. He denies any shortness of breath, chest pain, abdominal pain, headache, or difficulty urinating at this time. 07/31/2019 No acute events, comfortable, without complaints, making large volume of urine but incontinent. 08/01/2019 Patient was taken off of the insulin drip this morning, patient reports no change, without complaints, comfortable, tolerating diet, will be downgraded to MedSurg. 08/02/2019 Patient back to [facility], reports mild nausea, no other complaints at this time. He continues to have good urine output, creatinine improving every day. He denies any shortness of breath, chest pain, vomiting, diarrhea or abdominal pain. 08/03/2019 Patient comfortable in chair, reports fatigue, nausea has resolved, no other complaints. He continues to have good urine output, tolerating by mouth, worked with physical therapy who recommend rehabilitation placement. 08/04/2019 Patient underwent repeat swallow eval yesterday, unable to tolerate solids, patient very unhappy about pured diet, Ensure was added, which he does like. Although not happy he understands why he must stick on a pure diet. He has no other complaints, reports nausea has resolved. He denies any headaches, chest pain, shortness of breath, abdominal pain or diarrhea. 10 point review of system was negative except for above ALLERGIES: Please see below. HOME MEDICATIONS: Please see below. PHYSICAL EXAMINATION: VITAL SIGNS: Please see below. GENERAL: No distress HEENT: Normocephalic, atraumatic, dry mucous membranes NECK: Supple CARDIOVASCULAR EXAMINATION: S1, S2, no murmurs RESPIRATORY EXAMINATION: Clear to auscultation, no wheezing ABDOMINAL EXAMINATION: Soft, nontender, nondistended, positive bowel sounds EXTREMITIES: LE edema L>R SKIN: No rash NEUROLOGICAL EXAMINATION: Alert and oriented 3, L sided weakness. PSYCHIATRIC EXAMINATION: Calm and cooperative LABORATORY DATA: See below. IMAGING: CT head negative for acute process MICROBIOLOGY: Please see below. ASSESSMENT: 58-year-old male with past medical history of hypertension, diabetes and CVA, admitted for acute renal failure and high anion gap acidosis, likely due to decreased by mouth intake and medications. . PLAN: 1. Acute renal failure. Likely due to dehydration, ROBYN inhibitor and hydrochlorothiazide, metformin. Creatinine nearly at baseline, good urine output, continue gentle hydration, will monitor. Hypokalemia, hypomagnesemia & hypophosphatemia, likely due to decreased c oncentration ability of the kidneys as they're recovering. We'll supplement as needed Nephrology following. 2. Hypertension. Continue home meds with hold parameters. 3. CVA. Continue home aspirin, Plavix and statin. PT following, will require placement upon discharge, social work to arrange. 4. Diabetes mellitus. Hold metformin. Was admitted to the ICU due to concern for euglycemic DKA, remained on insulin drip for one day, now gap has closed, beta hydroxybutyrate levels normal, d owngraded to MedSurg on Levemir and sliding scale insulin. DVT prophylaxis: Heparin subcutaneous. GI prophylaxis: Not needed at this time VS, I&O, 24H, Fishbone Vital Signs/I&O Vital Signs Date Time Temp Pulse Resp B/P (MAP) Pulse Ox O2 Delivery O2 Flow Rate FiO2 08/04/19 09:53 78 134/67 08/04/19 06:00 98.6 18 97 08/01/19 08:05 2.0 07/30/19 14:46 Room Air I&O- Last 24 Hours up to 6 AM 08/04/19 06:00 Intake Total 3228 ml Output Total 0 ml Balance 3228 ml Laboratory Data 24H LABS Laboratory Tests 2 08/03/19 16:54: Bedside Glucose (Misc Panel) 97 08/03/19 20:39: Bedside Glucose (Misc Panel) 94 08/04/19 05:22: Estimated Mean Plasma Glucose 140H, Hemoglobin A1c 6.5 08/04/19 05:27: Nucleated Red Blood Cells % (auto) 0.0, Anion Gap 6L, Glomerular Filtration Rate 22.1L, Calcium Level 8.4L, Magnesium Level 1.4L, Free Thyroxine 1.21, Random Vancomycin Level 17.0 CBC/BMP Laboratory Tests 08/04/19 05:27 Microbiology Microbiology 07/31/19 Blood Culture - Preliminary, Resulted No Growth after 72 hours. All specime... 07/31/19 Urine Culture - Final, Complete Staphylococcus Hominis Ssp Gayatri MICKEY HSU MD Aug 04, 2019 14:38
--- NOTE | 2019-08-04 16:42 | PHACANCOPD ---
PHARMACY VANCOMYCIN DOSING Pt Demographics Demographics Patient Age:58 , Weight:96.100 , Gender: male Adjusted Body Weight Date: 08/02/19, Adjusted Body Weight: [83.62] Kg Events Past 24 Hours Events Past 24 Hours: YES: Change in CrCl Vancomycin Vancomycin Target Ranges: 15-20 mcg/ml Vancomycin Load Y/N: Yes Load Dose Date Time Vancomycin Load Dose: 1500MG Date: 08/02/19 Time: 1200 Vancomycin Dose Date: 08/02/19. Current Vancomycin Dose: [1 GM IV Q24H] Intermittent Dosing?: Yes Labs Micro Microbiology 07/31/19 Blood Culture - Preliminary, Resulted No Growth after 72 hours. All specime... 07/31/19 Urine Culture - Final, Complete Staphylococcus Hominis Ssp Gayatri Creatinine Clearance Date:08/02/19. Creatinine Clearance: [18.9]CALCULATED. Assessment and Plan Maintaining Current Dose?: No Reason for dose change: Change in serum Cr Pharmacist Note Pharmacist Note Date 08/04/19. Pharmacist note: serum creatinine continues to improve, random level this morning resulted in a trough of 17, will remove from intermittent dosing and change to Vancomycin 1 GM IV q24h. Pharmacy will continue to monitor and make adjustments as needed. Date: 08/03/19. Pharmacist note:Random Vancomycin level drawn this morning@ 5:16=15.0. SCR=4.97, Calculated CRCL=18.9.Patient currently on Intermittent Vancomycin Protocol. Will Give Vanco 1 gram IV this morning@0800 and schedule random draw for tomorrow.-will continue to follow Date: 08/02/19. Pharmacist note: Pt. is a 58 year old male who presented to the ED in DKA and VIANEY. Baseline Scr is <1.0 and pt presented to the ED with SCr 16.10 which is slowly improving. I have loaded the patient with 1500mg IV Vanco and entered an intermittent comment. I have ordered a random for tomorrow AM. We will continue to follow and adjust dose as needed. JACQUELYN SMITH PHARMACY Aug 04, 2019 16:41
[2019-08-04 22:00] VITALS: BP 146/74
[2019-08-05] MEDS ORDERED: ACETAMINOPHEN TAB 650MG DOSE (2X325MG) PO ONE ×2 (02:00→23:00)
[2019-08-05 06:00] VITALS: BP 162/70
[2019-08-05 07:09] LABS: HEMATOCRIT 29.8 % (42.0-52.0); MEAN CORPUSCULAR HGB CONC 33.6 g/dl (32.0-36.5); MEAN CORPUSCULAR VOLUME 83.5 fl (80.0-96.0); PLATELET COUNT, AUTOMATED 115 10^3/uL (150-450); RED BLOOD COUNT 3.57 10^6/uL (4.30-6.10); WHITE BLOOD COUNT 7.6 10^3/uL (4.0-10.0)
[2019-08-05] MEDS: HumaLOG INSULIN (NovoLOG) PER UNIT SC SCH ×3 (07:30→17:47)
[2019-08-05 07:34] LABS: CALCIUM LEVEL 8.2 MG/DL (8.5-10.1); CREATININE FOR GFR 1.99 MG/DL (0.70-1.30); GLOMERULAR FILTRATION RATE 36.8 (>56); MAGNESIUM LEVEL 1.8 MG/DL (1.8-2.4); PHOSPHORUS LEVEL 2.7 MG/DL (2.5-4.9); POTASSIUM SERUM 3.5 MEQ/L (3.5-5.1); VANCOMYCIN LEVEL TROUGH 16.1 UG/ML (10.0-20.0)
[2019-08-05] MEDS ORDERED: VANCOMYCIN HCL 1,000 MG, VIAL MATE ADAPTER 1 EACH in D5W 250 ML IV SCH (08:00)
--- NOTE | 2019-08-05 08:26 | PHACANCOPD ---
PHARMACY VANCOMYCIN DOSING Pt Demographics Demographics Patient Age:58 , Weight:96.100 , Gender: male Adjusted Body Weight Date: 08/02/19, Adjusted Body Weight: [83.62] Kg Events Past 24 Hours Events Past 24 Hours: YES: Change in CrCl Vancomycin Vancomycin indication: STAPH UTI Vancomycin Target Ranges: 15-20 mcg/ml Vancomycin Load Y/N: Yes Load Dose Date Time Vancomycin Load Dose: 1500MG Date: 08/02/19 Time: 1200 Vancomycin Dose Date: 08/02/19. Current Vancomycin Dose: [1 GM IV Q12H] Intermittent Dosing?: No Labs Labs Vital Signs Label Value Date Time Patient Temperature 98.1 degrees F 08/04/19 1400 Temperature Source Temporal 08/04/19 1400 Patient Temperature 98.7 degrees F 08/04/19 2200 Temperature Source Oral 08/04/19 2200 Patient Temperature 97.9 degrees F 08/05/19 0600 Temperature Source Oral 08/05/19 0600 Item Value Date Time White Blood Count 6.2 10^3/uL 08/03/19 0516 White Blood Count 7.3 10^3/uL 08/04/19 0527 White Blood Count 7.6 10^3/uL 08/05/19 0655 Creatinine 4.97 MG/DL H 08/03/19 0516 Creatinine 3.10 MG/DL H 08/04/19 0527 Creatinine 1.99 MG/DL H 08/05/19 0655 Random Vancomycin Level 15.0 UG/ML 08/03/19 0516 Random Vancomycin Level 17.0 UG/ML 08/04/19 0527 Vancomycin Level Trough 16.1 UG/ML 08/05/19 0655 Micro Microbiology 07/31/19 Blood Culture - Preliminary, Resulted No Growth after 72 hours. All specime... 07/31/19 Urine Culture - Final, Complete Staphylococcus Hominis Ssp Gayatri Creatinine Clearance Date:08/02/19. Creatinine Clearance: [18.9]CALCULATED. Assessment and Plan Maintaining Current Dose?: No Reason for dose change: Change in serum Cr Pharmacist Note Pharmacist Note Date 08/05/19. Pharmacist note: Serum creatinine and creatinine clearance continue to improve (SCr=1.99/CrCl=47 on 08/05/19). Patient continues to be afebrile, WBC are WNL, urine WBC and RBC are elevated. Vanco trough drawn at 1 hour prior to next scheduled dose came back at 16.1, dose was changed to 1G IV Q12H @0800, another trough is scheduled for 0700 on 08/06/19. We will continue to monitor and dose adjust as needed. Date 08/04/19. Pharmacist note: serum creatinine continues to improve, random level this morning resulted in a trough of 17, will remove from intermittent dosing and change to Vancomycin 1 GM IV q24h. Pharmacy will continue to monitor and make adjustments as needed. Date: 08/03/19. Pharmacist note:Random Vancomycin level drawn this morning@ 5:16=15.0. SCR=4.97, Calculated CRCL=18.9.Patient currently on Intermittent Vancomycin Protocol. Will Give Vanco 1 gram IV this morning@0800 and schedule random draw for tomorrow.-will continue to follow Date: 08/02/19. Pharmacist note: Pt. is a 58 year old male who presented to the ED in DKA and VIANEY. Baseline Scr is <1.0 and pt presented to the ED with SCr 16.10 which is slowly improving. I have loaded the patient with 1500mg IV Vanco and entered an intermittent comment. I have ordered a random for tomorrow AM. We will continue to follow and adjust dose as needed. SHANNON JUNG, PHARMACY Aug 05, 2019 08:26
[2019-08-05] MEDS ORDERED: POTASSIUM CHLORIDE 10% LIQ 20 MEQ/15 ML UDC PO ONE (08:45)
[2019-08-05] MEDS: MIRALAX *UNIT DOSE* 17GM PACKET PO SCH (09:00)
[2019-08-05] MEDS ORDERED: K-PHOS NEUTRAL 250MG TABLET (SOD.PHOSPHATE/POT.PHOSPHATE) PO SCH (09:00)
[2019-08-05] MEDS: ASPIRIN 81 MG ENTERIC TAB PO SCH (09:16)
[2019-08-05] MEDS: FLUoxetine 20 MG CAP PO SCH (09:17)
[2019-08-05] MEDS: PANTOPRAZOLE 40MG TAB (PROTONIX) PO SCH (09:17)
[2019-08-05] MEDS: ATORVASTATIN 20 MG TAB PO SCH (09:17)
[2019-08-05] MEDS: HEPARIN SOD (PORCINE) 5000 UNITS/ML VIAL SC SCH ×2 (09:18→21:30)
[2019-08-05] MEDS: cloNIDine 0.2 MG TAB PO SCH ×2 (09:18→21:31)
[2019-08-05] MEDS: amLODIPine 10 MG TAB PO SCH (09:19)
[2019-08-05] MEDS: LABETALOL 100 MG TAB PO SCH ×2 (09:19→21:31)
[2019-08-05] MEDS: CLOPIDOGREL 75 MG TAB PO SCH (09:19)
[2019-08-05] MEDS: LEVEMIR (INSULIN DETEMIR) 1 UNITS/0.01ML SC SCH (09:20)
[2019-08-05] MEDS: MAG SULF 1GM/100ML (MAG RUN) 1 GM in IV 1 EA IV SCH ×2 (09:20→11:58)
[2019-08-05] MEDS: NITROFURANTOIN (MACROBID) 100 MG CAP PO SCH ×2 (10:31→21:31)
--- NOTE | 2019-08-05 11:06 | IPNPDOC ---
Date Seen The patient was seen on 08/05/19. Progress Note NEPHROLOGY SERVICE PROGRESS NOTE: SUBJECTIVE: Mr. Stearns is seen and examined at the bedside this morning. He has no complaints. No issues reported overnight. OBJECTIVE PHYSICAL EXAMINATION: VITAL SIGNS: Please see below. GENERAL APPEARANCE: laying in bed, appearing stated age and in no acute distress HEENT: EOMI, PERRLA; neck is supple with no lymphadenopathy or thyromegaly RESPIRATORY: clear to auscultation bilaterally, otherwise no adventitious breath sounds can be heard CARDIOVASCULAR: no JVD, RRR, without any murmurs/rubs/gallops ABDOMEN: soft, nontender to palpation without any organomegaly or masses, +BS EXTREMITIES: no lower extremity edema, no clubbing or cyanosis otherwise NEUROLOGICAL: Left sided hemiparesis is noted PSYCHIATRIC: normal mood, normal affect LABORATORY DATA, IMAGING STUDIES, MICROBIOLOGY: Please see below. ASSESSMENT AND PLAN: This is a 58 YO M with history of euglycemic ketoacidosis found to be in acute renal failure. PROBLEMS: 1. DM Type 2,Insulin Dependent: -Patient is s/p insulin drip for suspected DKA. -Cont Levemir and ISS. Avoid use of Metformin -HgbA1c found to be 6.5%. 2. Acute renal failure: most likely 2/2 use of ACEi, thiazides, diuretics, metformin and ketoacidosis -Cr has improved to 1.9 from 3.1 yesterday -We believe he is making good urine -s/p IVF 3. Hypokalemia: 2/2 insulin -K is 3.5 today. stable. 4. Hypomagnesemia: -Mg stable. 4. HTN: -Continue Amlodipine, Clonidine, Labetalol 5. UTI: -Patient grew Staph hominis in his urine. Vancomycin switched to Macrobid x5days Dispo: At this point, Mr. Stearns' renal function has improved and he is fully optimized from the Nephrology standpoint, so we will be signing off at this time. Should there be any further questions, please feel free to call us. Thank you. VS, I&O, 24H, Fishbone Vital Signs/I&O Vital Signs Date Time Temp Pulse Resp B/P (MAP) Pulse Ox O2 Delivery O2 Flow Rate FiO2 08/05/19 09:19 73 158/84 08/05/19 06:00 97.9 16 96 Room Air 08/01/19 08:05 2.0 I&O- Last 24 Hours up to 6 AM 08/05/19 06:00 Intake Total 1600 ml Output Total 0 ml Balance 1600 ml Laboratory Data 24H LABS Laboratory Tests 2 08/04/19 12:00: Bedside Glucose (Misc Panel) 200H 08/04/19 16:36: Bedside Glucose (Misc Panel) 110H 08/05/19 06:55: Nucleated Red Blood Cells % (auto) 0.0, Anion Gap 7L, Glomerular Filtration Rate 36.8L, Calcium Level 8.2L, Phosphorus Level 2.7, Magnesium Level 1.8, Vancomycin Level Trough 16.1 CBC/BMP Laboratory Tests 08/05/19 06:55 Microbiology Microbiology 07/31/19 Blood Culture - Preliminary, Resulted No Growth after 72 hours. All specime... 07/31/19 Urine Culture - Final, Complete Staphylococcus Hominis Ssp Gayatri GME ATTESTATION GME ATTESTATION My faculty preceptor for this patient encounter was physically present during the encounter and was fully available. All aspects of the patient interview, examination, medical decision making process, and medical care plan development were reviewed and approved by the faculty preceptor. The faculty preceptor is aware and concurs with the plan as stated in the body of this note and will attest to such by his/her cosignature. JESSICA MANE MD Aug 05, 2019 11:06 SRINIVAS SANTANA MD Aug 06, 2019 20:02
--- NOTE | 2019-08-05 13:30 | IPNPDOC ---
Date Seen The patient was seen on 08/05/19. Progress Note HISTORY OF PRESENT ILLNESS: 58 y.o male w/ PMH of HTN, DM and CVA (residual L hemiparesis) presents to the emergency room with nausea, vomiting, diarrhea, and malaise for the past 5 days. He has not had similar symptoms in the past, denies anybody else at home with similar symptoms, denies sick contacts, reports very poor appetite for the past 5 days. In the ED he was found to have severe acute renal failure with a creatinine of 16, takes ROBYN inhibitor and hydrochlorothiazide along with metformin at home. He was straight cathed the ED with removal of 400 mL of urine. Labs are also suggestive of severe anion gap metabolic acidosis. He denies any shortness of breath, chest pain, abdominal pain, headache, or difficulty urinating at this time. 07/31/2019 No acute events, comfortable, without complaints, making large volume of urine but incontinent. 08/01/2019 Patient was taken off of the insulin drip this morning, patient reports no change, without complaints, comfortable, tolerating diet, will be downgraded to MedSur. 08/02/[address] [facility], reports mild nausea, no other complaints at this time. He continues to have good urine output, creatinine improving every day. He denies any shortness of breath, chest pain, vomiting, diarrhea or abdominal pain. 08/03/2019 Patient comfortable in chair, reports fatigue, nausea has resolved, no other complaints. He continues to have good urine output, tolerating by mouth, worked with physical therapy who recommend rehabilitation placement. 08/04/2019 Patient underwent repeat swallow eval yesterday, unable to tolerate solids, patient very unhappy about pured diet, Ensure was added, which he does like. Although not happy he understands why he must stick on a pure diet. He has no other complaints, reports nausea has resolved. He denies any headaches, chest pain, shortness of breath, abdominal pain or diarrhea. 08/05/2019 Patient comfortable in chair, tolerating liquid diet, unhappy about it, was reevaluated by speech and swallow, plan for modified barium swallow today. Patient has no complete at this time, denies shortness of breath, chest pain, nausea, vomiting, abdominal pain or diarrhea. 10 point review of system was negative except for above ALLERGIES: Please see below. HOME MEDICATIONS: Please see below. PHYSICAL EXAMINATION: VITAL SIGNS: Please see below. GENERAL: No distress HEENT: Normocephalic, atraumatic, dry mucous membranes NECK: Supple CARDIOVASCULAR EXAMINATION: S1, S2, no murmurs RESPIRATORY EXAMINATION: Clear to auscultation, no wheezing ABDOMINAL EXAMINATION: Soft, nontender, nondistended, positive bowel sounds EXTREMITIES: Range of motion intact SKIN: No rash NEUROLOGICAL EXAMINATION: Alert and oriented 3, L sided weakness. PSYCHIATRIC EXAMINATION: Calm and cooperative LABORATORY DATA: See below. ASSESSMENT: 58-year-old male with past medical history of hypertension, diabetes and CVA, admitted for acute renal failure and high anion gap acidosis, likely due to decreased by mouth intake and medications. . PLAN: 1. Acute renal failure. Likely due to dehydration, ROBYN inhibitor and hydrochlorothiazide, metformin. Creatinine nearly at baseline, good urine output, will monitor for improvement. Hypokalemia, hypomagnesemia & hypophosphatemia, likely due to decreased concentration ability of the kidneys as they're recovering, will supplement as needed Nephrology following. 2. Hypertension. Continue home meds with hold parameters. 3. CVA. Continue home aspirin, Plavix and statin. PT following, will require placement upon discharge, social work to arrange. Speech and swallow eval appreciated, plan for modified barium swallow today, continue pure diet for now. 4. Diabetes mellitus. Hold metformin. Was admitted to the ICU due to concern for euglycemic DKA, remained on insulin drip for one day, now gap has closed, beta hydroxybutyrate levels normal, downgraded to MedSurg on Levemir and sliding scale insulin. DVT prophylaxis: Heparin subcutaneous. GI prophylaxis: Not needed at this time VS, I&O, 24H, [place] Vital Signs/I&O Vital Signs Date Time Temp Pulse Resp B/P (MAP) Pulse Ox O2 Delivery O2 Flow Rate FiO2 08/05/19 09:19 73 158/84 08/05/19 06:00 97.9 16 96 Room Air 08/01/19 08:05 2.0 I&O- Last 24 Hours up to 6 AM 08/05/19 06:00 Intake Total 1600 ml Output Total 0 ml Balance 1600 ml Laboratory Data 24H LABS Laboratory Tests 2 08/04/19 16:36: Bedside Glucose (Misc Panel) 110H 08/05/19 06:55: Nucleated Red Blood Cells % (auto) 0.0, Anion Gap 7L, Glomerular Filtration Rate 36.8L, Calcium Level 8.2L, Phosphorus Level 2.7, Magnesium Level 1.8, Vancomycin Level Trough 16.1 08/05/19 11:21: Bedside Glucose (Misc Panel) 134H CBC/BMP Laboratory Tests 08/05/19 06:55 Microbiology Microbiology 07/31/19 Blood Culture - Preliminary, Resulted No Growth after 72 hours. All specime... 07/31/19 Urine Culture - Final, Complete Staphylococcus Hominis Ssp Gayatri MICKEY HSU MD Aug 05, 2019 13:30
[2019-08-05] MEDS ORDERED: VARIBAR PUDDING 40% w/v 230ML TUBE As Ordered ONE (13:42)
[2019-08-05] MEDS ORDERED: VARIBAR NECTAR 40% w/v 240ML SUSP BTL As Ordered ONE (13:42)
[2019-08-05] MEDS ORDERED: BARIUM SULFATE 700 MG TABLET (E-Z-DISK) As Ordered ONE (13:43)
[2019-08-05] MEDS ORDERED: E-Z-PAQUE 96% w/w SUSP 176GM BTL As Ordered ONE (13:43)
--- NOTE | 2019-08-05 19:43 | REP ---
Examination Requested: Cookie Swallow Reason For Exam: Evaluate swallowing The procedure was performed by TERESSA Chopra, under the direct supervision of Dr. Palma. The procedure was performed with Shilpi Swenson from speech pathology present. 5 ml aliquots of thin, pudding, mixed fruit, soft food, and pill consistency barium was administered. Aspiration was visualized with thin liquid the patient drink through a straw. The detailed report of this examination will be provided by speech pathology. 2.5 minutes of fluoroscopy time was utilized for this procedure. Reviewed by TERESSA Christianson 08/05/2019 05:01 P Electronically Signed by Jaison Palma MD 08/05/2019 07:33 P
[2019-08-05 22:00] VITALS: BP 163/82
[2019-08-06 06:00] VITALS: BP 178/88
[2019-08-06 06:17] LABS: HEMATOCRIT 30.4 % (42.0-52.0); MEAN CORPUSCULAR HEMOGLOBIN 27.8 pg (27.0-33.0); MEAN CORPUSCULAR HGB CONC 32.9 g/dl (32.0-36.5); MEAN CORPUSCULAR VOLUME 84.4 fl (80.0-96.0); PLATELET COUNT, AUTOMATED 148 10^3/uL (150-450); WHITE BLOOD COUNT 7.6 10^3/uL (4.0-10.0)
[2019-08-06 06:32] LABS: CALCIUM LEVEL 8.5 MG/DL (8.5-10.1); CREATININE FOR GFR 1.65 MG/DL (0.70-1.30); GLOMERULAR FILTRATION RATE 45.7 (>56); MAGNESIUM LEVEL 1.8 MG/DL (1.8-2.4); PHOSPHORUS LEVEL 2.8 MG/DL (2.5-4.9); POTASSIUM SERUM 3.6 MEQ/L (3.5-5.1)
[2019-08-06] MEDS: HumaLOG INSULIN (NovoLOG) PER UNIT SC SCH ×3 (07:30→17:35)
[2019-08-06] MEDS: NITROFURANTOIN (MACROBID) 100 MG CAP PO SCH ×2 (08:09→20:58)
[2019-08-06] MEDS: PANTOPRAZOLE 40MG TAB (PROTONIX) PO SCH (08:09)
[2019-08-06] MEDS: LABETALOL 100 MG TAB PO SCH ×2 (08:09→20:58)
[2019-08-06] MEDS: FLUoxetine 20 MG CAP PO SCH (08:09)
[2019-08-06] MEDS: ASPIRIN 81 MG ENTERIC TAB PO SCH (08:09)
[2019-08-06] MEDS: amLODIPine 10 MG TAB PO SCH (08:09)
[2019-08-06] MEDS: LEVEMIR (INSULIN DETEMIR) 1 UNITS/0.01ML SC SCH (08:10)
[2019-08-06] MEDS: CLOPIDOGREL 75 MG TAB PO SCH (08:10)
[2019-08-06] MEDS: ATORVASTATIN 20 MG TAB PO SCH (08:10)
[2019-08-06] MEDS: cloNIDine 0.2 MG TAB PO SCH ×2 (08:10→20:57)
[2019-08-06] MEDS: HEPARIN SOD (PORCINE) 5000 UNITS/ML VIAL SC SCH ×2 (08:10→20:57)
[2019-08-06] MEDS: MIRALAX *UNIT DOSE* 17GM PACKET PO SCH (08:11)
[2019-08-06] MEDS ORDERED: POTASSIUM CHLORIDE 10 MEQ SR TABLET PO ONE (10:00)
[2019-08-06] MEDS ORDERED: MAG SULF 1GM/100ML (MAG RUN) 1 GM in IV 1 EA IV ONE (10:00)
[2019-08-06] MEDS: LISINOPRIL 10 MG TAB PO SCH (10:15)
[2019-08-06] MEDS: hydroCHLOROthiazide 12.5 MG CAPSULE PO SCH (10:16)
[2019-08-06 14:00] VITALS: BP 147/75
--- NOTE | 2019-08-06 17:57 | IPNPDOC ---
Date Seen The patient was seen on 08/06/19. Progress Note HISTORY OF PRESENT ILLNESS: 58 y.o male w/ PMH of HTN, DM and CVA (residual L hemiparesis) presents to the emergency room with nausea, vomiting, diarrhea, and malaise for the past 5 days. He has not had similar symptoms in the past, denies anybody else at home with similar symptoms, denies sick contacts, reports very poor appetite for the past 5 days. In the ED he was found to have severe acute renal failure with a creatinine of 16, takes ROBYN inhibitor and hydrochlorothiazide along with metformin at home. He was straight cathed the ED with removal of 400 mL of urine. Labs are also suggestive of severe anion gap metabolic acidosis. He denies any shortness of breath, chest pain, abdominal pain, headache, or difficulty urinating at this time. 07/31/2019 No acute events, comfortable, without complaints, making large volume of urine but incontinent. 08/01/2019 Patient was taken off of the insulin drip this morning, patient reports no change, without complaints, comfortable, tolerating diet, will be downgraded to MedSur. 08/02/2019 Patient back to [facility], reports mild nausea, no other complaints at this time. He continues to have good urine output, creatinine improving every day. He denies any shortness of breath, chest pain, vomiting, diarrhea or abdominal pain. 08/03/2019 Patient comfortable in chair, reports fatigue, nausea has resolved, no other complaints. He continues to have good urine output, tolerating by mouth, worked with physical therapy who recommend rehabilitation placement. 08/04/2019 Patient underwent repeat swallow eval yesterday, unable to tolerate solids, patient very unhappy about pured diet, Ensure was added, which he does like. Although not happy he understands why he must stick on a pure diet. He has no other complaints, reports nausea has resolved. He denies any headaches, chest pain, shortness of breath, abdominal pain or diarrhea. 08/05/2019 Patient comfortable in chair, tolerating liquid diet, unhappy about it, was reevaluated by speech and swallow, plan for modified barium swallow today. Patient has no complete at this time, denies shortness of breath, chest pain, nausea, vomiting, abdominal pain or diarrhea. 08/06/2019 Patient underwent modified barium swallow yesterday, aspirating thin liquids when drinking from straw. Patient in bed, comfortable, without complaints, awaiting ARU evaluation. 10 point review of system was negative except for above ALLERGIES: Please see below. HOME MEDICATIONS: Please see below. PHYSICAL EXAMINATION: VITAL SIGNS: Please see below. GENERAL: No distress HEENT: Normocephalic, atraumatic, dry mucous membranes NECK: Supple CARDIOVASCULAR EXAMINATION: S1, S2, no murmurs RESPIRATORY EXAMINATION: Clear to auscultation, no wheezing ABDOMINAL EXAMINATION: Soft, nontender, nondistended, positive bowel sounds EXTREMITIES: Range of motion intact SKIN: No rash NEUROLOGICAL EXAMINATION: Alert and oriented 3, L sided weakness. PSYCHIATRIC EXAMINATION: Calm and cooperative LABORATORY DATA: See below. ASSESSMENT: 58-year-old male with past medical history of hypertension, diabetes and CVA, admitted for acute renal failure and high anion gap acidosis, likely due to decreased by mouth intake and medications. . PLAN: 1. Acute renal failure. Likely due to dehydration, ROBYN inhibitor and hydrochlorothiazide, metformin. Creatinine nearly at baseline, good urine output Will restart lisinopril and hydrochlorothiazide Nephrology signed off 2. Hypertension. Continue home meds with hold parameters. Restarted lisinopril and hydrochlorothiazide 3. CVA. Continue home aspirin, Plavix and statin. PT following, will require placement upon discharge, social work to arrange. Modified barium swallow performed, aspirating thin liquids when drinking from a straw. 4. Diabetes mellitus. Hold metformin. Was admitted to the ICU due to concern for euglycemic DKA, remained on insulin drip for one day, now gap has closed, beta hydroxybutyrate levels normal, downgraded to MedSurg on Levemir and sliding scale insulin. DVT prophylaxis: Heparin subcutaneous. GI prophylaxis: Not needed at this time VS, I&O, 24H, Fishbone Vital Signs/I&O Vital Signs Date Time Temp Pulse Resp B/P (MAP) Pulse Ox O2 Delivery O2 Flow Rate FiO2 08/06/19 14:00 97.9 82 18 147/75 (99) 100 Room Air 08/01/19 08:05 2.0 I&O- Last 24 Hours up to 6 AM 08/06/19 06:00 Intake Total 720 ml Output Total 0 ml Balance 720 ml Laboratory Data 24H LABS Laboratory Tests 2 08/05/19 21:22: Bedside Glucose (Misc Panel) 75 08/06/19 05:18: Nucleated Red Blood Cells % (auto) 0.0, Anion Gap 5L, Glomerular Filtration Rate 45.7L, Calcium Level 8.5, Phosphorus Level 2.8, Magnesium Level 1.8 08/06/19 16:45: Bedside Glucose (Misc Panel) 169H CBC/BMP Laboratory Tests 08/06/19 05:18 Microbiology Microbiology 07/31/19 Blood Culture - Final, Complete NO GROWTH AFTER 5 DAYS 07/31/19 Urine Culture - Final, Complete Staphylococcus Hominis Ssp Gayatri MICKEY HSU MD Aug 06, 2019 17:57
[2019-08-06 22:00] VITALS: BP 154/75
[2019-08-07 05:55] LABS: HEMOGLOBIN 9.7 g/dl (13.5-17.5); MEAN CORPUSCULAR HEMOGLOBIN 27.2 pg (27.0-33.0); MEAN CORPUSCULAR HGB CONC 32.3 g/dl (32.0-36.5); PLATELET COUNT, AUTOMATED 185 10^3/uL (150-450); RED BLOOD COUNT 3.57 10^6/uL (4.30-6.10); WHITE BLOOD COUNT 8.8 10^3/uL (4.0-10.0)
[2019-08-07 06:00] VITALS: BP 163/86
[2019-08-07 06:12] LABS: CALCIUM LEVEL 8.8 MG/DL (8.5-10.1); CREATININE FOR GFR 1.57 MG/DL (0.70-1.30); GLOMERULAR FILTRATION RATE 48.4 (>56); MAGNESIUM LEVEL 1.6 MG/DL (1.8-2.4); PHOSPHORUS LEVEL 2.8 MG/DL (2.5-4.9); POTASSIUM SERUM 4.1 MEQ/L (3.5-5.1)
[2019-08-07] MEDS: HumaLOG INSULIN (NovoLOG) PER UNIT SC SCH ×3 (07:30→17:23)
[2019-08-07] MEDS: hydroCHLOROthiazide 12.5 MG CAPSULE PO SCH (09:52)
[2019-08-07] MEDS: PANTOPRAZOLE 40MG TAB (PROTONIX) PO SCH (09:52)
[2019-08-07] MEDS: NITROFURANTOIN (MACROBID) 100 MG CAP PO SCH ×2 (09:53→20:22)
[2019-08-07] MEDS: cloNIDine 0.2 MG TAB PO SCH ×2 (09:53→20:26)
[2019-08-07] MEDS: CLOPIDOGREL 75 MG TAB PO SCH (09:53)
[2019-08-07] MEDS: amLODIPine 10 MG TAB PO SCH (09:53)
[2019-08-07] MEDS: ASPIRIN 81 MG ENTERIC TAB PO SCH (09:53)
[2019-08-07] MEDS: LISINOPRIL 10 MG TAB PO SCH (09:54)
[2019-08-07] MEDS: LABETALOL 100 MG TAB PO SCH ×2 (09:54→20:25)
[2019-08-07] MEDS: ATORVASTATIN 20 MG TAB PO SCH (09:54)
[2019-08-07] MEDS: FLUoxetine 20 MG CAP PO SCH (09:55)
[2019-08-07] MEDS: LEVEMIR (INSULIN DETEMIR) 1 UNITS/0.01ML SC SCH (09:55)
[2019-08-07] MEDS: HEPARIN SOD (PORCINE) 5000 UNITS/ML VIAL SC SCH ×2 (09:55→20:23)
[2019-08-07] MEDS: MAG SULF 1GM/100ML (MAG RUN) 1 GM in IV 1 EA IV SCH ×3 (09:58→12:17)
[2019-08-07] MEDS: MIRALAX *UNIT DOSE* 17GM PACKET PO SCH (10:01)
--- NOTE | 2019-08-07 12:05 | IPNPDOC ---
Date Seen The patient was seen on 08/07/19. Progress Note HISTORY OF PRESENT ILLNESS: 58 y.o male w/ PMH of HTN, DM and CVA (residual L hemiparesis) presents to the emergency room with nausea, vomiting, diarrhea, and malaise for the past 5 days. He has not had similar symptoms in the past, denies anybody else at home with similar symptoms, denies sick contacts, reports very poor appetite for the past 5 days. In the ED he was found to have severe acute renal failure with a creatinine of 16, takes ROBYN inhibitor and hydrochlorothiazide along with metformin at home. He was straight cathed the ED with removal of 400 mL of urine. Labs are also suggestive of severe anion gap metabolic acidosis. He denies any shortness of breath, chest pain, abdominal pain, headache, or difficulty urinating at this time. 07/31/2019 No acute events, comfortable, without complaints, making large volume of urine but incontinent. 08/01/2019 Patient was taken off of the insulin drip this morning, patient reports no change, without complaints, comfortable, tolerating diet, will be downgraded to MedSur. 08/02/2019 Patient back to [facility], reports mild nausea, no other complaints at this time. He continues to have good urine output, creatinine improving every day. He denies any shortness of breath, chest pain, vomiting, diarrhea or abdominal pain. 08/03/2019 Patient comfortable in chair, reports fatigue, nausea has resolved, no other complaints. He continues to have good urine output, tolerating by mouth, worked with physical therapy who recommend rehabilitation placement. 08/04/2019 Patient underwent repeat swallow eval yesterday, unable to tolerate solids, patient very unhappy about pured diet, Ensure was added, which he does like. Although not happy he understands why he must stick on a pure diet. He has no other complaints, reports nausea has resolved. He denies any headaches, chest pain, shortness of breath, abdominal pain or diarrhea. 08/05/2019 Patient comfortable in chair, tolerating liquid diet, unhappy about it, was reevaluated by speech and swallow, plan for modified barium swallow today. Patient has no complete at this time, denies shortness of breath, chest pain, nausea, vomiting, abdominal pain or diarrhea. 08/06/2019 Patient underwent modified barium swallow yesterday, aspirating thin liquids when drinking from straw. Patient in bed, comfortable, without complaints, awaiting ARU evaluation. 08/07/2019 Patient complaint bed, without any complaints, tolerating diet, awaiting ARU clearance. Denies any short of breath, chest pain, nausea, vomiting, bowel pain or diarrhea. 10 point review of system was negative except for above ALLERGIES: Please see below. HOME MEDICATIONS: Please see below. PHYSICAL EXAMINATION: VITAL SIGNS: Please see below. GENERAL: No distress HEENT: Normocephalic, atraumatic, dry mucous membranes NECK: Supple CARDIOVASCULAR EXAMINATION: S1, S2, no murmurs RESPIRATORY EXAMINATION: Clear to auscultation, no wheezing ABDOMINAL EXAMINATION: Soft, nontender, nondistended, positive bowel sounds EXTREMITIES: Range of motion intact SKIN: No rash NEUROLOGICAL EXAMINATION: Alert and oriented 3, L sided weakness. PSYCHIATRIC EXAMINATION: Calm and cooperative LABORATORY DATA: See below. ASSESSMENT: 58-year-old male with past medical history of hypertension, diabetes and CVA, admitted for acute renal failure and high anion gap acidosis, likely due to decreased by mouth intake and medications. . PLAN: 1. Acute renal failure. Likely due to dehydration, ROBYN inhibitor and hydrochlorothiazide, metformin. Creatinine nearly at baseline, good urine output, continued improving after s tarting lisinopril and hydrochlorothiazide. Nephrology signed off 2. Hypertension. Continue home clonidine, labetalol, Norvasc, lisinopril and hydrochlorothiazide. 3. CVA. Continue home aspirin, Plavix and statin. PT following, will require placement upon discharge, social work to arrange. Modified barium swallow performed, aspirating thin liquids when drinking from a straw. 4. Diabetes mellitus. Hold metformin. Was admitted to the ICU due to concern for euglycemic DKA, remained on insulin drip for one day, now gap has closed, beta hydroxybutyrate levels normal, downgraded to MedSurg on Levemir and sliding scale insulin. DVT prophylaxis: Heparin subcutaneous. GI prophylaxis: Not needed at this time VS, I&O, 24H, Fishbone Vital Signs/I&O Vital Signs Date Time Temp Pulse Resp B/P (MAP) Pulse Ox O2 Delivery O2 Flow Rate FiO2 08/07/19 09:54 154/84 08/07/19 09:54 66 08/07/19 06:00 97.8 20 99 08/06/19 14:00 Room Air 08/01/19 08:05 2.0 I&O- Last 24 Hours up to 6 AM 08/07/19 06:00 Intake Total 1440 ml Output Total 0 ml Balance 1440 ml Laboratory Data 24H LABS Laboratory Tests 2 08/06/19 16:45: Bedside Glucose (Misc Panel) 169H 08/06/19 20:43: Bedside Glucose (Misc Panel) 77 08/07/19 05:16: Nucleated Red Blood Cells % (auto) 0.0, Anion Gap 7L, Glomerular Filtration Rate 48.4L, Calcium Level 8.8, Phosphorus Level 2.8, Magnesium Level 1.6L CBC/BMP Laboratory Tests 08/07/19 05:16 Microbiology Microbiology 07/31/19 Blood Culture - Final, Complete NO GROWTH AFTER 5 DAYS 07/31/19 Urine Culture - Final, Complete Staphylococcus Hominis Ssp Gayatri MICKEY HSU MD Aug 07, 2019 12:05
[2019-08-07 14:00] VITALS: BP 129/64
[2019-08-07 22:00] VITALS: BP 151/78
[2019-08-08 06:00] VITALS: BP 153/78
[2019-08-08 06:14] LABS: HEMATOCRIT 31.5 % (42.0-52.0); HEMOGLOBIN 10.1 g/dl (13.5-17.5); MEAN CORPUSCULAR HEMOGLOBIN 27.1 pg (27.0-33.0); MEAN CORPUSCULAR HGB CONC 32.1 g/dl (32.0-36.5); MEAN CORPUSCULAR VOLUME 84.5 fl (80.0-96.0); PLATELET COUNT, AUTOMATED 213 10^3/uL (150-450); RED BLOOD COUNT 3.73 10^6/uL (4.30-6.10); WHITE BLOOD COUNT 6.7 10^3/uL (4.0-10.0)
[2019-08-08 06:40] LABS: CALCIUM LEVEL 9.2 MG/DL (8.5-10.1); CREATININE FOR GFR 1.5 MG/DL (0.70-1.30); MAGNESIUM LEVEL 1.8 MG/DL (1.8-2.4); PHOSPHORUS LEVEL 3.7 MG/DL (2.5-4.9); POTASSIUM SERUM 4.2 MEQ/L (3.5-5.1)
[2019-08-08] MEDS: HumaLOG INSULIN (NovoLOG) PER UNIT SC SCH ×3 (07:30→16:55)
[2019-08-08] MEDS: ATORVASTATIN 20 MG TAB PO SCH (08:35)
[2019-08-08] MEDS: HEPARIN SOD (PORCINE) 5000 UNITS/ML VIAL SC SCH ×2 (08:35→20:16)
[2019-08-08] MEDS: hydroCHLOROthiazide 12.5 MG CAPSULE PO SCH (08:35)
[2019-08-08] MEDS: PANTOPRAZOLE 40MG TAB (PROTONIX) PO SCH (08:36)
[2019-08-08] MEDS: FLUoxetine 20 MG CAP PO SCH (08:36)
[2019-08-08] MEDS: CLOPIDOGREL 75 MG TAB PO SCH (08:36)
[2019-08-08] MEDS: ASPIRIN 81 MG ENTERIC TAB PO SCH (08:36)
[2019-08-08] MEDS: cloNIDine 0.2 MG TAB PO SCH ×2 (08:38→20:16)
[2019-08-08] MEDS: NITROFURANTOIN (MACROBID) 100 MG CAP PO SCH (08:38)
[2019-08-08] MEDS: amLODIPine 10 MG TAB PO SCH (08:38)
[2019-08-08] MEDS: LABETALOL 100 MG TAB PO SCH ×2 (08:39→20:16)
[2019-08-08] MEDS: LISINOPRIL 10 MG TAB PO SCH (08:39)
[2019-08-08] MEDS: LEVEMIR (INSULIN DETEMIR) 1 UNITS/0.01ML SC SCH (08:39)
[2019-08-08] MEDS: MIRALAX *UNIT DOSE* 17GM PACKET PO SCH (08:40)
[2019-08-08] MEDS: MAG SULF 1GM/100ML (MAG RUN) 1 GM in IV 1 EA IV SCH ×2 (10:31→13:09)
[2019-08-08 14:00] VITALS: BP 143/69
--- NOTE | 2019-08-08 15:31 | IPNPDOC ---
Date Seen The patient was seen on 08/08/19. Progress Note HISTORY OF PRESENT ILLNESS: 58 y.o male w/ PMH of HTN, DM and CVA (residual L hemiparesis) presents to the emergency room with nausea, vomiting, diarrhea, and malaise for the past 5 days. He has not had similar symptoms in the past, denies anybody else at home with similar symptoms, denies sick contacts, reports very poor appetite for the past 5 days. In the ED he was found to have severe acute renal failure with a creatinine of 16, takes ROBYN inhibitor and hydrochlorothiazide along with metformin at home. He was straight cathed the ED with removal of 400 mL of urine. Labs are also suggestive of severe anion gap metabolic acidosis. He denies any shortness of breath, chest pain, abdominal pain, headache, or difficulty urinating at this time. 07/31/2019 No acute events, comfortable, without complaints, making large volume of urine but incontinent. 08/01/2019 Patient was taken off of the insulin drip this morning, patient reports no change, without complaints, comfortable, tolerating diet, will be downgraded to MedSur. 08/02/2019 Patient back to [facility], reports mild nausea, no other complaints at this time. He continues to have good urine output, creatinine improving every day. He denies any shortness of breath, chest pain, vomiting, diarrhea or abdominal pain. 08/03/2019 Patient comfortable in chair, reports fatigue, nausea has resolved, no other complaints. He continues to have good urine output, tolerating by mouth, worked with physical therapy who recommend rehabilitation placement. 08/04/2019 Patient underwent repeat swallow eval yesterday, unable to tolerate solids, patient very unhappy about pured diet, Ensure was added, which he does like. Although not happy he understands why he must stick on a pure diet. He has no other complaints, reports nausea has resolved. He denies any headaches, chest pain, shortness of breath, abdominal pain or diarrhea. 08/05/2019 Patient comfortable in chair, tolerating liquid diet, unhappy about it, was reevaluated by speech and swallow, plan for modified barium swallow today. Patient has no complete at this time, denies shortness of breath, chest pain, nausea, vomiting, abdominal pain or diarrhea. 08/06/2019 Patient underwent modified barium swallow yesterday, aspirating thin liquids when drinking from straw. Patient in bed, comfortable, without complaints, awaiting ARU evaluation. 08/07/2019 Patient complaint bed, without any complaints, tolerating diet, awaiting ARU clearance. Denies any short of breath, chest pain, nausea, vomiting, bowel pain or diarrhea. 08/08/2019 Comfortable in bed, no complaints, awaiting insurance certification for ARU. Diet advanced 10 point review of system was negative except for above ALLERGIES: Please see below. HOME MEDICATIONS: Please see below. PHYSICAL EXAMINATION: VITAL SIGNS: Please see below. GENERAL: No distress HEENT: Normocephalic, atraumatic, dry mucous membranes NECK: Supple CARDIOVASCULAR EXAMINATION: S1, S2, no murmurs RESPIRATORY EXAMINATION: Clear to auscultation, no wheezing ABDOMINAL EXAMINATION: Soft, nontender, nondistended, positive bowel sounds EXTREMITIES: Range of motion intact SKIN: No rash NEUROLOGICAL EXAMINATION: Alert and oriented 3, L sided weakness. PSYCHIATRIC EXAMINATION: Calm and cooperative LABORATORY DATA: See below. ASSESSMENT: 58-year-old male with past medical history of hypertension, diabetes and CVA, admitted for acute renal failure and high anion gap acidosis, likely due to decreased by mouth intake and medications. . PLAN: 1. Acute renal failure. Likely due to dehydration, ROBYN inhibitor and hydrochlorothiazide, metformin. Creatinine nearly at baseline, good urine output, continued improving after starting lisinopril and hydrochlorothiazide. Nephrology signed off 2. Hypertension. Continue home clonidine, labetalol, Norvasc, lisinopril and hydrochlorothiazide. 3. CVA. Continue home aspirin, Plavix and statin. PT following, ARU pending insurance approval Modified barium swallow performed, aspirating thin liquids when drinking from a straw. Diet advanced 4. Diabetes mellitus. Hold metformin. Was admitted to the ICU due to concern for euglycemic DKA, remained on insulin drip for one day, now gap has closed, beta hydroxybutyrate levels normal, downgraded to MedSurg on Levemir and sliding scale insulin. DVT prophylaxis: Heparin subcutaneous. GI prophylaxis: Not needed at this time VS, I&O, 24H, Fishbone Vital Signs/I&O Vital Signs Date Time Temp Pulse Resp B/P (MAP) Pulse Ox O2 Delivery O2 Flow Rate FiO2 10/21/19 08:39 123/73 08/08/19 08:39 62 08/08/19 06:00 96.8 18 96 08/07/19 14:00 Room Air I&O- Last 24 Hours up to 6 AM 08/08/19 05:59 Intake Total 1280 ml Output Total 0 ml Balance 1280 ml Laboratory Data 24H LABS Laboratory Tests 2 08/07/19 16:44: Bedside Glucose (Misc Panel) 141H 08/07/19 21:07: Bedside Glucose (Misc Panel) 68L 08/08/19 05:27: Nucleated Red Blood Cells % (auto) 0.0, Anion Gap 4L, Glomerular Filtration Rate 51.0L, Calcium Level 9.2, Phosphorus Level 3.7#, Magnesium Level 1.8 08/08/19 11:24: Bedside Glucose (Misc Panel) 159H CBC/BMP Laboratory Tests 08/08/19 05:27 Microbiology Microbiology 07/31/19 Blood Culture - Final, Complete NO GROWTH AFTER 5 DAYS 07/31/19 Urine Culture - Final, Complete Staphylococcus Hominis Ssp Gayatri MICKEY HSU MD Aug 08, 2019 15:30
[2019-08-08 22:00] VITALS: BP 143/77
[2019-08-09 06:00] VITALS: BP 154/78
[2019-08-09 06:22] LABS: HEMATOCRIT 29.9 % (42.0-52.0); HEMOGLOBIN 9.8 g/dl (13.5-17.5); MEAN CORPUSCULAR HEMOGLOBIN 27.6 pg (27.0-33.0); MEAN CORPUSCULAR HGB CONC 32.8 g/dl (32.0-36.5); MEAN CORPUSCULAR VOLUME 84.2 fl (80.0-96.0); PLATELET COUNT, AUTOMATED 227 10^3/uL (150-450); RED BLOOD COUNT 3.55 10^6/uL (4.30-6.10); WHITE BLOOD COUNT 6.1 10^3/uL (4.0-10.0)
[2019-08-09 06:46] LABS: CALCIUM LEVEL 9.2 MG/DL (8.5-10.1); CREATININE FOR GFR 1.64 MG/DL (0.70-1.30); POTASSIUM SERUM 3.8 MEQ/L (3.5-5.1)
[2019-08-09] MEDS: HumaLOG INSULIN (NovoLOG) PER UNIT SC SCH ×3 (07:30→17:30)
[2019-08-09] MEDS: MIRALAX *UNIT DOSE* 17GM PACKET PO SCH (09:00)
[2019-08-09] MEDS: ASPIRIN 81 MG ENTERIC TAB PO SCH (09:33)
[2019-08-09] MEDS: PANTOPRAZOLE 40MG TAB (PROTONIX) PO SCH (09:33)
[2019-08-09] MEDS: FLUoxetine 20 MG CAP PO SCH (09:33)
[2019-08-09] MEDS: hydroCHLOROthiazide 12.5 MG CAPSULE PO SCH (09:33)
[2019-08-09] MEDS: ATORVASTATIN 20 MG TAB PO SCH (09:33)
[2019-08-09] MEDS: HEPARIN SOD (PORCINE) 5000 UNITS/ML VIAL SC SCH ×2 (09:33→20:19)
[2019-08-09] MEDS: cloNIDine 0.2 MG TAB PO SCH ×2 (09:35→20:20)
[2019-08-09] MEDS: amLODIPine 10 MG TAB PO SCH (09:35)
[2019-08-09] MEDS: LISINOPRIL 10 MG TAB PO SCH (09:35)
[2019-08-09] MEDS: LABETALOL 100 MG TAB PO SCH ×2 (09:36→21:43)
[2019-08-09] MEDS: LEVEMIR (INSULIN DETEMIR) 1 UNITS/0.01ML SC SCH (09:37)
[2019-08-09] MEDS: CLOPIDOGREL 75 MG TAB PO SCH (09:40)
[2019-08-09 14:00] VITALS: BP 125/58
--- NOTE | 2019-08-09 20:52 | IPNPDOC ---
Text Note Date of Service The patient was seen on 08/09/19. NOTE Objective: No any acute events overnight. Patient denies fever, chills, nausea, vomiting, diarrhea or dysuria Subjective: GENERAL: No distress HEENT: Normocephalic, atraumatic, dry mucous membranes NECK: Supple CARDIOVASCULAR EXAMINATION: S1, S2, no murmurs RESPIRATORY EXAMINATION: Clear to auscultation, no wheezing ABDOMINAL EXAMINATION: Soft, nontender, nondistended, positive bowel sounds EXTREMITIES: Range of motion intact SKIN: No rash NEUROLOGICAL EXAMINATION: Alert and oriented 3, L sided weakness. ASSESSMENT: 58-year-old male with past medical history of hypertension, diabetes and CVA, admitted for acute renal failure and high anion gap acidosis, likely due to decreased by mouth intake and medications 1. Acute renal failure. Likely due to dehydration and medications side effect Improved 2. Hypertension. Blood pressures under control Continue home meds 3. CVA. Continue home aspirin, Plavix and statin. PT following, ARU pending insurance approval Modified barium swallow performed, aspirating thin liquids when drinking from a straw. Diet advanced 4. Diabetes mellitus. Hold metformin. Levemir and sliding scale insulin. VS,Fishbone, I+O VS, Fishbone, I+O Laboratory Tests 08/09/19 06:03 Vital Signs Date Time Temp Pulse Resp B/P (MAP) Pulse Ox O2 Delivery O2 Flow Rate FiO2 08/09/19 20:20 128/70 08/09/19 14:00 97.9 78 20 95 08/07/19 14:00 Room Air I&O- Last 24 Hours up to 6 AM 08/09/19 06:00 Intake Total 1485 ml Output Total 0 ml Balance 1485 ml JEFFERY TORRES DO Aug 09, 2019 20:52
[2019-08-09 22:00] VITALS: BP 135/69
[2019-08-10 06:00] VITALS: BP 131/66
[2019-08-10] MEDS: HumaLOG INSULIN (NovoLOG) PER UNIT SC SCH ×3 (07:30→17:18)
[2019-08-10] MEDS: HEPARIN SOD (PORCINE) 5000 UNITS/ML VIAL SC SCH ×2 (08:03→20:20)
[2019-08-10] MEDS: PANTOPRAZOLE 40MG TAB (PROTONIX) PO SCH (08:03)
[2019-08-10] MEDS: cloNIDine 0.2 MG TAB PO SCH ×2 (08:04→20:19)
[2019-08-10] MEDS: hydroCHLOROthiazide 12.5 MG CAPSULE PO SCH (08:04)
[2019-08-10] MEDS: amLODIPine 10 MG TAB PO SCH (08:04)
[2019-08-10] MEDS: ASPIRIN 81 MG ENTERIC TAB PO SCH (08:04)
[2019-08-10] MEDS: LISINOPRIL 10 MG TAB PO SCH (08:04)
[2019-08-10] MEDS: FLUoxetine 20 MG CAP PO SCH (08:04)
[2019-08-10] MEDS: LEVEMIR (INSULIN DETEMIR) 1 UNITS/0.01ML SC SCH (08:05)
[2019-08-10] MEDS: CLOPIDOGREL 75 MG TAB PO SCH (08:05)
[2019-08-10] MEDS: LABETALOL 100 MG TAB PO SCH ×2 (08:05→20:20)
[2019-08-10] MEDS: MIRALAX *UNIT DOSE* 17GM PACKET PO SCH (08:05)
[2019-08-10] MEDS: ATORVASTATIN 20 MG TAB PO SCH (08:05)
[2019-08-10 14:00] VITALS: BP 142/75
[2019-08-10 22:00] VITALS: BP 137/73
[2019-08-11 06:00] VITALS: BP 137/73
[2019-08-11] MEDS: HumaLOG INSULIN (NovoLOG) PER UNIT SC SCH ×3 (07:16→16:45)
[2019-08-11] MEDS: HEPARIN SOD (PORCINE) 5000 UNITS/ML VIAL SC SCH (07:40)
[2019-08-11 07:41] VITALS: BP 130/70
[2019-08-11] MEDS: hydroCHLOROthiazide 12.5 MG CAPSULE PO SCH (07:41)
[2019-08-11] MEDS: PANTOPRAZOLE 40MG TAB (PROTONIX) PO SCH (07:41)
[2019-08-11] MEDS: cloNIDine 0.2 MG TAB PO SCH (07:41)
[2019-08-11] MEDS: ASPIRIN 81 MG ENTERIC TAB PO SCH (07:41)
[2019-08-11] MEDS: amLODIPine 10 MG TAB PO SCH (07:41)
[2019-08-11] MEDS: FLUoxetine 20 MG CAP PO SCH (07:42)
[2019-08-11] MEDS: LISINOPRIL 10 MG TAB PO SCH (07:42)
[2019-08-11] MEDS: CLOPIDOGREL 75 MG TAB PO SCH (07:42)
[2019-08-11] MEDS: LABETALOL 100 MG TAB PO SCH (07:42)
[2019-08-11] MEDS: LEVEMIR (INSULIN DETEMIR) 1 UNITS/0.01ML SC SCH (07:42)
[2019-08-11] MEDS: ATORVASTATIN 20 MG TAB PO SCH (07:42)
[2019-08-11] MEDS: MIRALAX *UNIT DOSE* 17GM PACKET PO SCH (07:43)
[2019-08-11] MEDS ORDERED: INSUDET SC (11:17)
[2019-08-11] MEDS ORDERED: INSUHUMDS SC (11:19)
[2019-08-11] MEDS ORDERED: LANC30MI XX ×2 (11:20→13:26)
[2019-08-11] MEDS ORDERED: ALCOPAD25 TOP (11:20)
[2019-08-11] MEDS ORDERED: PEN1MIS21 SC (11:20)
[2019-08-11] MEDS ORDERED: GLUC1TES2 XX ×2 (11:20→13:26)
[2019-08-11] MEDS ORDERED: BLOOKIT21 XX ×3 (11:20→13:27)
[2019-08-11] MEDS ORDERED: GLIP10TA PO (13:04)
[2019-08-11 14:00] VITALS: BP 137/73
[2019-08-11] MEDS ORDERED: BISACODYL 10 MG SUPP PR ONE (16:00)
[2019-08-11] MEDS ORDERED: MAGNESIUM CITRATE 300 ML BTL PO ONE (17:00)
--- NOTE | 2019-08-11 20:23 | DS.PDOC ---
Discharge Summary General Date of Admission Jul 30, 2019 at 14:09 Date of Discharge 08/11/19 Primary Care Physician: Gali Ivan Attending Physician: JEFFERY TORRES DO Discharge Summary PROCEDURES PERFORMED DURING STAY: None ADMITTING DIAGNOSES: . Acute renal failure. Hypertension CVA. Diabetes mellitus. DISCHARGE DIAGNOSES: Acute renal failure. Hypertension CVA. Diabetes mellitus COMPLICATIONS/CHIEF COMPLAINT: Htn,Cva,Diabetes Mellitus. HISTORY OF PRESENT ILLNESS: HISTORY OF PRESENT ILLNESS: 58 y.o male w/ PMH of HTN, DM and CVA (residual L hemiparesis) presents to the emergency room with nausea, vomiting, diarrhea, and malaise for the past 5 days. He has not had similar symptoms in the past, denies anybody else at home with similar symptoms, denies sick contacts, reports very poor appetite for the past 5 days. In the ED he was found to have severe acute renal failure with a creatinine of 16, takes ROBYN inhibitor and hydrochlorothiazide along with metformin at home. He was straight cathed the ED with removal of 400 mL of urine. Labs are also suggestive of severe anion gap metabolic acidosis. He denies any shortness of breath, chest pain, abdominal pain, headache, or difficulty urinating at this time. 07/31/2019 No acute events, comfortable, without complaints, making large volume of urine but incontinent. 08/01/2019 Patient was taken off of the insulin drip this morning, patient reports no change, without complaints, comfortable, tolerating diet, will be downgraded to MedSu. 08/02/2019 Patient back to [facility], reports mild nausea, no other complaints at this time. He continues to have good urine output, creatinine improving every day. He denies any shortness of breath, chest pain, vomiting, diarrhea or abdominal pain. 08/03/2019 Patient comfortable in chair, reports fatigue, nausea has resolved, no other complaints. He continues to have good urine output, tolerating by mouth, worked with physical therapy who recommend rehabilitation placement. 08/04/2019 Patient underwent repeat swallow eval yesterday, unable to tolerate solids, patient very unhappy about pured diet, Ensure was added, which he does like. Although not happy he understands why he must stick on a pure diet. He has no other complaints, reports nausea has resolved. He denies any headaches, chest pain, shortness of breath, abdominal pain or diarrhea. 08/05/2019 Patient comfortable in chair, tolerating liquid diet, unhappy about it, was reevaluated by speech and swallow, plan for modified barium swallow today. Patient has no complete at this time, denies shortness of breath, chest pain, nausea, vomiting, abdominal pain or diarrhea. 08/06/2019 Patient underwent modified barium swallow yesterday, aspirating thin liquids when drinking from straw. Patient in bed, comfortable, without complaints, awaiting ARU evaluation. 08/07/2019 Patient complaint bed, without any complaints, tolerating diet, awaiting ARU clearance. Denies any short of breath, chest pain, nausea, vomiting, bowel pain or diarrhea. 08/08/2019 Comfortable in bed, no complaints. Transferred to [facility]. Diet advanced HOSPITAL COURSE: See above DISCHARGE MEDICATIONS: Please see below. ALLERGIES: Please see below. PHYSICAL EXAMINATION ON DISCHARGE: GENERAL: No distress HEENT: Normocephalic, atraumatic, dry mucous membranes NECK: Supple CARDIOVASCULAR EXAMINATION: S1, S2, no murmurs RESPIRATORY EXAMINATION: Clear to auscultation, no wheezing ABDOMINAL EXAMINATION: Soft, nontender, nondistended, positive bowel sounds EXTREMITIES: Range of motion intact SKIN: No rash NEUROLOGICAL EXAMINATION: Alert and oriented 3, L sided weakness. PSYCHIATRIC EXAMINATION: Calm and cooperative LABORATORY DATA: Please see below. PROGNOSIS: Favorable ACTIVITY: As tolerated DIET: Diabetes DISCHARGE PLAN: Follow-up with PCP in 3-5 days DISPOSITION: 01 Home, Self-Care. DISCHARGE INSTRUCTIONS: Check glucose level before meal DISCHARGE CONDITION: Stable. TIME SPENT ON DISCHARGE: Greater than 20 minutes. Vital Signs/I&Os Vital Signs Date Time Temp Pulse Resp B/P (MAP) Pulse Ox O2 Delivery O2 Flow Rate FiO2 08/11/19 14:00 97.6 61 15 137/73 (94) 93 Room Air I&O- Last 24 Hours up to 6 AM 08/11/19 06:00 Intake Total 1140 ml Output Total 300 ml Balance 840 ml Laboratory Data Labs 24H Laboratory Tests 2 08/10/19 21:12: Bedside Glucose (Misc Panel) 110H 08/11/19 06:55: Bedside Glucose (Misc Panel) 103 08/11/19 11:51: Bedside Glucose (Misc Panel) 155H 08/11/19 16:42: Bedside Glucose (Misc Panel) 95 FSBS Laboratory Tests Test 08/10/19 21:12 08/11/19 06:55 08/11/19 11:51 08/11/19 16:42 Range/Units Bedside Glucose (Misc Panel) 110 103 155 95 70-105 MG/DL Discharge Medications Scheduled Amlodipine Besylate (Amlodipine Besylate) 10 Mg Tablet, 10 MG PO DAILY, (Reported) Aspirin (Ecotrin) 81 Mg Tablet.dr, 81 MG PO DAILY, (Reported) Atorvastatin Calcium (Atorvastatin Calcium) 40 Mg Tablet, 40 MG PO DAILY, (Reported) Blood Sugar Diagnostic (Advanced Glucose Test Strips) 1 Each Strip, 1 STRIP XX ASDIRECTED Blood Sugar Diagnostic (Advanced Glucose Test Strips) 1 Each Strip, 1 STRIP XX ASDIRECTED Clonidine HCl (Clonidine HCl) 0.2 Mg Tablet, 0.2 MG PO BID, (Reported) Clopidogrel Bisulfate (Plavix) 75 Mg Tablet, 75 MG PO DAILY, (Reported) Fluoxetine Hcl (Fluoxetine HCl) 40 Mg Capsule, 40 MG PO DAILY, (Reported) Glipizide (Glipizide) 10 Mg Tablet, 10 MG PO BID Labetalol HCl (Labetalol HCl) 100 Mg Tablet, 100 MG PO BID, (Reported) Lisinopril/Hydrochlorothiazide (Lisinopril-Hctz 10-12.5 mg Tab) 1 Each Tablet, 1 TAB PO DAILY, (Reported) Pantoprazole Sodium (Pantoprazole Sodium) 40 Mg Tablet.dr, 40 MG PO DAILY, (Reported) Allergies Coded Allergies: No Known Allergies (Verified , 07/30/19) JEFFERY TORRES DO Aug 11, 2019 20:23
== END 2019-08-11 19:00 | disposition home or self-care (01) | DRG 682 ==
LOC: EDBD 11:11 → M ED 11:11 → M ED INP 14:09 → M PCU 15:43 → M ICU 07-31 14:30 → M MSPAV 08-01 13:28
PROVIDERS: ADMIT Internal Medicine; ATTEND Internal Medicine
DX: N17.9 Acute kidney failure, unspecified (principal); E11.10 Type 2 diabetes mellitus with ketoacidosis without coma; E87.2 Acidosis; I69.354 Hemiplegia and hemiparesis following cerebral infarction affecting left non-dominant side; E87.1 Hypo-osmolality and hyponatremia; N39.0 Urinary tract infection, site not specified; E87.5 Hyperkalemia; I10 Essential (primary) hypertension; E86.0 Dehydration; E87.6 Hypokalemia; E83.42 Hypomagnesemia; Z79.82 Long term (current) use of aspirin; Z79.899 Other long term (current) drug therapy; Z87.891 Personal history of nicotine dependence; E83.39 Other disorders of phosphorus metabolism